=== PATIENT | female | born 2000 | race Caucasian/White ===

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

== ENCOUNTER 2023-08-07 13:18 | Emergency (ER) | payer OTHER, SELFPAY ==
[2023-08-07 13:19] VITALS: BP 131/70; PULSE 112; RESP 18; TEMP 36.5; O2SAT 97; BMI 37.3
--- NOTE | 2023-08-07 14:14 | EX.ED.DYSGE1 ---
HPI History of Present Illness Chief Complaint: Nausea/Vomiting Detail of Chief Complaint: Nausea and vomiting Informant: patient Narrative Narrative: Patient presents to the emergency department with complaint nausea and vomiting that started today. She has vomited x2. Patient states she started not feeling well yesterday and just kind of felt uncomfortable. Patient was coughing throughout the night. She denies any sick contacts. Patient is 22 weeks . She is G1, P0. Patient denies urinary symptoms. Patient states that she was recently on Flagyl for yeast infection as well as fluconazole. PFSH PFSH Medical History Chest pain Difficulty balancing when standing Fatigue Severe headache Home Medications multivitamin 1 tab PO DAILY 04/29/21 [History Last Taken Unknown] ondansetron 4 mg disintegrating tablet 4 mg PO Q8H PRN PRN Nausea #10 tabs 08/07/23 [Rx Last Taken Unknown] sertraline 25 mg tablet (Zoloft) 25 mg PO DAILY #30 tabs 08/24/23 [Rx Last Taken Unknown] Allergy/AdvReac Type Severity Reaction Status Date / Time Latex, Natural Rubber Allergy Mild Hives Verified 08/24/23 13:19 Penicillins Allergy unknown Verified 08/24/23 13:19 Family History (Updated 08/24/23 @ 13:21 by Rebeka Arthur MA) Grandmother Breast cancer Colon cancer Thyroid disorder Unknown Infertility Social History household members: spouse housing: house number of children: 0 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 history of recent travel: No sexually active: Yes Smoking Status: Never smoker alcohol intake: never substance use type: does not use what type of physical activity do you participate in: walking seatbelt use: always do you feel safe at home: Yes additional social history: - [place] ROS ROS ED Review of Systems ROS Unobtainable: other Constitutional Constitutional ED: Reports lethargy; Denies chills, fever(s), sweats or weight loss Eyes Eyes: Denies blurry vision, change in vision or diplopia ENT ENT ED: Denies rhinorrhea or sore throat Cardiovascular Cardiovascular: Denies chest pain, orthopnea or racing heartbeat Respiratory/Chest Respiratory/Chest: Reports cough; Denies dyspnea, dyspnea on exertion, orthopnea or sputum Gastrointestinal Gastrointestinal: Reports diarrhea, nausea and vomiting; Denies abdominal pain Genitourinary Genitourinary ED: Denies dysuria, hematuria or urinary frequency Musculoskeletal Musculoskeletal: Denies arthralgias, back pain, myalgias or neck pain Integumentary Denies abscess, Abrasions or rash Neurologic Neurologic: Denies headache(s) or weakness Psychiatric Psychiatric: Denies anxiety, depression or suicidal thoughts Endocrine Endocrinology: Denies polydipsia, polyphagia or polyuria Hematologic/Lymphatic Hematologic/Lymphatic: Denies easy bleeding, easy bruising or lymphadenopathy Allergic/Immunologic Allergic/Immunologic ED: Denies mouth swelling, tongue swelling or urticaria EXAM Physical Exam Const Vital Signs: 08/07/23 13:19 Temperature 97.7 F L Temperature Source Temporal Pulse Rate 112 H Respiratory Rate 18 Blood Pressure 131/70 H Blood Pressure Mean 90 Pulse Ox 97 Oxygen Delivery Method Room Air Positive well nourished and well developed General Appearance ED: well developed and NAD HEENT Reports TM's clear and moist mucous membranes normocephalic and atraumatic; Negative for trauma or tenderness Tympanic Membrane ED: Yes TM's clear Eyes PERRL and EOMs intact bilaterally General Eye ED: Negative for pale conjunctiva or scleral icterus Neck no lymphadenopathy, supple and no JVD General: Negative for tenderness Chest Wall inspection of chest normal and palpation of chest normal Chest: Negative for tenderness Resp normal respiratory effort and clear to auscultation bilaterally Effort and Inspection: Negative for respiratory distress or pain with movement Auscultation: Negative for rhonchi, wheezes or diminished lung sounds Cardio regular rate, regular rhythm, S1 normal heart sound, S2 normal heart sound and no murmurs Peripheral Pulses: pulses 2+ throughout GI normal to inspection, nondistended, normoactive bowel sounds, soft to palpation, non-tender, non-distended and no masses Back/Spine no CVA tenderness and no thoracic nor lumbar tenderness Extremity normal to inspection General Extremety ED: Negative for edema General Extremity: Negative for edema Neuro oriented x3, CN's II-XII intact bilaterally, no sensory deficits noted and gait normal Sensorium / Orientation: awake, alert, oriented to person, oriented to place and oriented to time Motor Exam: strength 5/5 throughout and strength abnormal Psych mental status grossly normal Skin no rashes or lesions noted and no wounds MDM MDM MDM Narrative Medical decision making narrative: Patient presents with vomiting and some loose stool x2 days. She has had decreased appetite. She had a slight cough. In the differential would be gastroenteritis versus a viral URI. She has no abdominal pain. I did obtain a COVID and flu rapid test which were both negative. CBC with differential did show slightly elevated white blood cell count of 12.3 with hemoglobin of 12 and platelet count of 276. She had a neutrophil predominance. Urinalysis was unremarkable. Electrolytes unremarkable. Patient received a liter of the same fluid bolus. heart tones will be obtained. Clinically patient looks well. This point suspect likely a viral gastroenteritis/viral syndrome. I will write her a prescription for Zofran. She is advised to follow-up with her [employer]LECT[employer]OWER SUPERINTENDENT within next 2 to 5 days. She is to return if persistent vomiting, dehydration, abdominal pain, or condition should worsen anyway. Lab Data Attestation: I reviewed the patient's lab results. Labs: Laboratory Results - last 24 hr 08/07/23 14:21 WBC 12.3 H RBC 3.99 L Hgb 12.1 Hct 37.1 MCV 93.0 MCH 30.3 MCHC 32.6 RDW Std Deviation 46.5 H RDW Coeff of Byron 13.7 Plt Count 276 MPV 10.2 Immature Gran % (Auto) 1.000 H Neut % (Auto) 76.8 H Lymph % (Auto) 12.4 L [place] % (Auto) 8.8 Eos % (Auto) 0.7 Baso % (Auto) 0.3 Absolute Neuts (auto) 9.5 H Absolute Lymphs (auto) 1.53 Nucleated RBC % 0 Sodium 138 Potassium 3.5 Chloride 105 Carbon Dioxide 25.0 Anion Gap 8 BUN 10 Creatinine 0.64 Estim Creat Clear Calc 121.08 Est GFR (MDRD) Af Amer 150 Est GFR (MDRD) Non-Af 124 BUN/Creatinine Ratio 15.6 Glucose 114 H Calcium 9.5 Urine Color Yellow Urine Clarity Clear Urine pH 7.0 Ur Specific [place] 1.015 Urine Protein Negative Urine Glucose (UA) 50 H Urine Ketones Negative Urine Occult Blood Negative Urine Nitrite Negative Urine Bilirubin Negative Urine Urobilinogen Normal Ur Leukocyte Esterase Negative Urine RBC 0 SEEN Urine WBC 0-5 SEEN Ur Squamous Epith Cells 5-10 SEEN Amorphous Sediment 2+ Urine Bacteria 2+ Urine Mucus 0 SEEN Discharge Plan Triage Chief Complaint: Nausea/Vomiting ED Provider: Epifanio Augustine Dx/Rx/DC Orders Clinical Impression: Acute viral syndrome Instructions: ED Gastroenteritis, Viral (Adult) Prescriptions: New ondansetron [ondansetron] 4 mg tablet,disintegrating 4 mg PO Q8H PRN PRN (Reason: Nausea) Qty: 10 0RF No Action multivitamin Tablet 1 tab PO DAILY sertraline [Zoloft] 25 mg tablet 25 mg PO DAILY Qty: 30 4RF Primary Care Provider: Boogie Ham Referrals: Care Physician,No Primary [Non-Staff] - Activity Restrictions/Additional Instructions: Follow-up with your E[employer] POWER SUPERINTENDENT within next 3 to 5 days. Disposition Disposition: Home, Self Care Discharge Date/Time: 08/07/23 15:54
[2023-08-07] MEDS: 0.9% Normal Saline (1000mL) 1,000 ML 1000 ML IV (14:29)
[2023-08-07 14:45] LABS: Mucous, Urine 0 SEEN /hpf (<or=2+); Red Blood Cells-Urine 0 SEEN /hpf (0-5)
[2023-08-07 14:53] LABS: Color, Urine Yellow (Yellow); Glucose, Dipstick 50 mg/dl (Normal); Ketone-Dipstick Negative (Negative); Leukocyte Esterase-Dipstick Negative /ul (Negative); Nitrite-Dipstick Negative (Negative); Occult Blood-Urine Negative /ul (Negative); Protein-Dipstick Negative (Negative); Specific Gravity, Urine 1.015 (1.002-1.030); Urine Bilirubin Dipstick Negative (Negative); Urine Clarity Clear (Clear); Urine Urobilinogen Normal (Normal)
[2023-08-07 14:58] LABS: Absolute Lymphocyte Count 1.53 X10^3/uL (0.83-4.51); Absolute Neutrophil Count 9.5 X10^3/uL (2.0-7.7); Basophil# 0.04 X10^3/uL; Basophil% 0.3 % (0-1); Eosinophil# 0.09 X10^3/uL; Eosinophils% 0.7 % (0-5); Hematocrit 37.1 % (37-47); Hemoglobin 12.1 g/dL (12.0-15.0); Lymphocyte # 1.53 X10^3/ul (0.83-4.51); Lymphocyte % 12.4 % (19-41); Mean Corp Hgb Conc 32.6 g/dL (32-36); Mean Corpuscular Hgb 30.3 pg (27.0-32.0); Mean Platelet Vol. 10.2 fl (6.2-12.0); Monocyte# 1.09 X10^3/uL; Monocyte% 8.8 % (0-10); NRBC Flagged by Analyzer 0 % (0-5); Neutrophil # 9.46 X10^3/uL (2.7-7.7); Neutrophil % 76.8 % (47-70); Platelet Count 276 K/mm3 (150-450); RBC Distribution Width CV 13.7 % (11.6-14.6); RBC Distribution Width SD 46.5 fl (35.1-43.9); Red Blood Count 3.99 M/mm3 (4.2-5.4); White Blood Count 12.3 K/mm3 (4.4-11.0)
[2023-08-07 15:02] LABS: Anion Gap 8 (5-15); BUN 10 mg/dL (7-18); BUN/Creat Ratio 15.6 RATIO (10-20); Calcium,Total 9.5 mg/dL (8.5-10.1); Chloride 105 mmol/L (98-107); Creatinine, Serum 0.64 mg/dL (0.55-1.02); EST Glomerular Filtration Rate 124 mL/min (>60); Est Glom Filt Rate - Afr Amer 150 mL/min (>60); Estimated Creatinine Clearance 121.08 ml/min; Glucose 114 mg/dL (74-106); Potassium 3.5 mmol/L (3.5-5.1); Sodium Level 138 mmol/L (136-145)
[2023-08-07 15:13] LABS: Bacteria 2+ /hpf (None Seen); White Blood Cells 0-5 SEEN /hpf (0-5)
[2023-08-07 15:14] LABS: Amorphous Sediment 2+; Squamous Epithelial Cells - UA 5-10 SEEN /hpf (5-10)
== END 2023-08-07 15:54 | disposition home or self-care (01) ==
PROVIDERS: Emergency Provider Emergency Medicine; PCP Family Medicine; Visit Provider Emergency Medicine
DX: O98.512 Other viral diseases complicating pregnancy, second trimester (principal); B34.9 Viral infection, unspecified; Z3A.22 22 weeks gestation of pregnancy; O21.9 Vomiting of pregnancy, unspecified
CPT/HCPCS: 80048; 81001; 85025; 87428; 96360; 99282; J7030

== ENCOUNTER → 2023-09-18 | Outpatient (CLI) | payer OTHER, SELFPAY ==
[2023-09-18 09:23] LABS: Absolute Lymphocyte Count 0.95 X10^3/uL (0.83-4.51); Absolute Neutrophil Count 7.7 X10^3/uL (2.0-7.7); Basophil# 0.03 X10^3/uL; Basophil% 0.3 % (0-1); Eosinophil# 0.09 X10^3/uL; Eosinophils% 0.9 % (0-5); Hematocrit 33.5 % (37-47); Hemoglobin 10.9 g/dL (12.0-15.0); Lymphocyte # 0.95 X10^3/ul (0.83-4.51); Lymphocyte % 9.9 % (19-41); Mean Corp Hgb Conc 32.5 g/dL (32-36); Mean Corpuscular Volume 92.3 fL (81-99); Mean Platelet Vol. 10.4 fl (6.2-12.0); Monocyte# 0.73 X10^3/uL; Monocyte% 7.6 % (0-10); NRBC Flagged by Analyzer 0 % (0-5); Neutrophil # 7.73 X10^3/uL (2.7-7.7); Neutrophil % 80.2 % (47-70); Platelet Count 214 K/mm3 (150-450); RBC Distribution Width CV 14.5 % (11.6-14.6); RBC Distribution Width SD 48.4 fl (35.1-43.9); Red Blood Count 3.63 M/mm3 (4.2-5.4); White Blood Count 9.6 K/mm3 (4.4-11.0)
[2023-09-18 09:56] LABS: Glucose Challenge Gest 1H 50g 187 mg/dL (70-140)
[2023-09-18 10:29] LABS: HIV - WCH Non-Reactive (Nonreactive); Syphilis Antibodies Non-reactive
== END | disposition home or self-care (01) ==
PROVIDERS: PCP Family Medicine; Referring Provider Advanced Practice Midwife; Visit Provider Advanced Practice Midwife
DX: O99.340 Other mental disorders complicating pregnancy, unspecified trimester (principal); F32.A Depression, unspecified; F41.9 Anxiety disorder, unspecified; F84.0 Autistic disorder; Z3A.00 Weeks of gestation of pregnancy not specified
CPT/HCPCS: 36415; 82950; 85025; 86703; 86780; 86850; 86900; 86901

== ENCOUNTER → 2023-10-02 | Outpatient (CLI) | payer OTHER, SELFPAY ==
[2023-10-04 21:07] LABS: Chlamydia By Nucleic Acid AMP Negative (Negative); Gonococcus By Nucleic Acid AMP Negative (Negative)
== END | disposition home or self-care (01) ==
PROVIDERS: Visit Provider Nurse Practitioner Women's Health
DX: Z34.90 Encounter for supervision of normal pregnancy, unspecified, unspecified trimester (principal); Z3A.00 Weeks of gestation of pregnancy not specified
CPT/HCPCS: 87086; 87088; 87491; 87591

== ENCOUNTER → 2023-10-13 | Outpatient (CLI) | payer OTHER, SELFPAY ==
[2023-10-13 12:11] LABS: Absolute Lymphocyte Count 1.23 X10^3/uL (0.83-4.51); Absolute Neutrophil Count 7.4 X10^3/uL (2.0-7.7); Basophil# 0.04 X10^3/uL; Basophil% 0.4 % (0-1); Hematocrit 36.2 % (37-47); Hemoglobin 11.6 g/dL (12.0-15.0); Lymphocyte # 1.23 X10^3/ul (0.83-4.51); Lymphocyte % 12.4 % (19-41); Mean Corpuscular Hgb 29.7 pg (27.0-32.0); Mean Corpuscular Volume 92.6 fL (81-99); Mean Platelet Vol. 9.5 fl (6.2-12.0); Monocyte# 0.99 X10^3/uL; NRBC Flagged by Analyzer 0 % (0-5); Neutrophil # 7.42 X10^3/uL (2.7-7.7); Neutrophil % 74.6 % (47-70); Platelet Count 242 K/mm3 (150-450); RBC Distribution Width CV 15.2 % (11.6-14.6); Red Blood Count 3.91 M/mm3 (4.2-5.4); White Blood Count 9.9 K/mm3 (4.4-11.0)
== END | disposition home or self-care (01) ==
LOC: PAVLAB 11:49
PROVIDERS: PCP Family Medicine; Referring Provider Advanced Practice Midwife; Visit Provider Advanced Practice Midwife
DX: O99.019 Anemia complicating pregnancy, unspecified trimester (principal); Z3A.00 Weeks of gestation of pregnancy not specified
CPT/HCPCS: 36415; 85025

== ENCOUNTER → 2023-10-18 | Outpatient (CLI) | payer OTHER, SELFPAY ==
--- NOTE | 2023-10-18 11:17 | US_ITS ---
EXAM: US , LIMITED CLINICAL INDICATION: 32 week growth US TECHNIQUE: Real-time limited ultrasound of the maternal uterus with image documentation. COMPARISON: No relevant prior studies available. FINDINGS: FETUS: Estimated age: 35 weeks, 0 days. EFW: Estimated weight: 2693 g. BPD: 8.7 cm. HC: 31.4 cm. AC: 32.3 cm. FL: 6.6 cm. POSITION: Cephalic presentation. HEART RATE: heart rate is 144 bpm. PLACENTA: Anterior placenta. AMNIOTIC FLUID: Amniotic fluid volume is 15.1 cm. CERVIX: The cervix is not visualized. ADNEXA: Maternal adnexal structures are not visualized. US/OB Limited With Biometrics IMPRESSION: Viable IUP of approximately 35 weeks, 0 days. Detailed anatomic assessment is limited due to technique and gestational age. Electronically Signed: Cheikh Khan DO at 20:36 EST ,
== END | disposition home or self-care (01) ==
PROVIDERS: PCP Family Medicine; Referring Provider Advanced Practice Midwife; Visit Provider Advanced Practice Midwife
DX: O24.419 Gestational diabetes mellitus in pregnancy, unspecified control (principal); Z3A.32 32 weeks gestation of pregnancy
CPT/HCPCS: 76816

== ENCOUNTER 2023-10-26 11:00 | Outpatient (CLI) | payer OTHER, SELFPAY ==
[2023-10-26 11:12] VITALS: BMI 41.0
[2023-10-26 11:20] VITALS: TEMP 37.3
[2023-10-26 11:47] VITALS: BP 127/70; PULSE 126; PULSE 130; O2SAT 99
[2023-10-26 11:52] VITALS: PULSE 125; O2SAT 99
--- NOTE | 2023-10-26 11:56 | US_ITS ---
STUDY: OBSTETRICAL ULTRASOUND - BIOPHYSICAL PROFILE REASON FOR EXAM: Female, 23 years old variables in office LMP: March 04, 2023 PRIOR ULTRASOUND: Comparison is made with prior examination dated October 18, 2023. TECHNIQUE: Transabdominal and Transvaginal TECHNICAL QUALITY: Adequate. FINDINGS: There is a single intrauterine fetus. The fetus is in a cephalic presentation. There is demonstrated cardiac activity with a heart rate of 145 bpm. There is a normal amniotic fluid volume. The largest amniotic fluid pocket measures 6 cm. The amniotic fluid index (EMEKA) is 16.5 cm. The placenta is anterior in location and is not low lying. There are Grade 2 placental changes. Age by LMP: 33 weeks, 5 days. SANDEEP by LMP: December 09, 2023. BIOPHYSICAL PROFILE: Breathing Movements (FBM): 2 Gross Body Movements (GBM): 2 Tone (FT): 2 Amniotic Fluid Volume (AFV): 2 TOTAL SCORE: US/Biophysical Prof W/O Non Stres IMPRESSION: Normal biophysical profile of 07/04. Electronically Signed: Yo Solano MD at 13:40 EST ,
[2023-10-26 12:03] LABS: Hematocrit 36.4 % (37-47); Hemoglobin 11.9 g/dL (12.0-15.0); Mean Corp Hgb Conc 32.7 g/dL (32-36); Mean Corpuscular Hgb 30.4 pg (27.0-32.0); Mean Corpuscular Volume 92.9 fL (81-99); Mean Platelet Vol. 10.5 fl (6.2-12.0); Platelet Count 193 K/mm3 (150-450); RBC Distribution Width CV 15.8 % (11.6-14.6); RBC Distribution Width SD 53.4 fl (35.1-43.9); Red Blood Count 3.92 M/mm3 (4.2-5.4); White Blood Count 8.2 K/mm3 (4.4-11.0)
[2023-10-26 12:09] LABS: AST(SGOT) 20 U/L (15-37); Alanine Aminotransfer ALT/SGPT 37 U/L (13-56); EST Glomerular Filtration Rate 165 mL/min (>60); Est Glom Filt Rate - Afr Amer 199 mL/min (>60); Uric Acid 2.8 mg/dL (2.6-6.0)
--- NOTE | 2023-10-26 13:47 | OB.TRI.PN_ITS ---
Progress Notes Date of Service: 10/26/23 Progress Note: Patient presents for triage evaluation secondary to variable on NST in office FHT: 140 Moderate variability reactive no decelerations category I tracing [place]: none Contractions Assessment and plan: BPP 8/8, Reactive NST, labs normal, reassuring maternal and status patient discharged to home to follow-up in office. See problem list details for additional plan information. Laboratory Studies: Laboratory Tests 10/26/23 Range/Units 11:40 WBC 8.2 (4.4-11.0) K/mm3 RBC 3.92 L (4.2-5.4) M/mm3 Hgb 11.9 L (12.0-15.0) g/dL Hct 36.4 L (37-47) % MCV 92.9 (81-99) fL MCH 30.4 (27.0-32.0) pg MCHC 32.7 (32-36) g/dL RDW Std Deviation 53.4 H (35.1-43.9) fl RDW Coeff of Byron 15.8 H (11.6-14.6) % Plt Count 193 (150-450) K/mm3 MPV 10.5 (6.2-12.0) fl Creatinine 0.50 L (0.55-1.02) mg/dL Est GFR (MDRD) Af Amer 199 (>60) mL/min Est GFR (MDRD) Non-Af 165 (>60) mL/min Uric Acid 2.8 (2.6-6.0) mg/dL AST 20 (15-37) U/L ALT 37 (13-56) U/L Charges/Coding Multi Select Codes Urinary/Genital Urinary/Genital CPT Codes: 60399-65 non-stress test Interp Assessment & Plan (1) : QUALIFIERS: Weeks of gestation: 33 weeks Qualified Code(s): Z3A.33 - 33 weeks gestation of COMMENT: NIPT with prior practice. records requested (2) Supervision of high risk , antepartum: COMMENT: [id number] SANDEEP 12/09/23 Spouse Dominguez NEEDS URINE CULTURE:10/02/23: (3) Rh negative status during : QUALIFIERS: Trimester: third trimester Qualified Code(s): O26.893 - Other specified related conditions, third trimester; Z67.91 - Unspecified blood type, Rh negative COMMENT: given 09/18/23 (4) Gestational diabetes mellitus (GDM) affecting , antepartum: COMMENT: metformin. NSTs and growth US at 32 and 36 weeks. testing supplies ordered-4x daily; not able to comprehend checking: ref to Dr Medina and dietitian. (5) Uterine size date discrepancy : COMMENT: S>D Growth at 32 week-99%. Records reviewed and early US done by previous practice. also GDM. growth at 36 weeks. consider possible P C/S if appropriate.
[2023-10-26 13:53] VITALS: BP 108/54; PULSE 118
[2023-10-26 14:03] LABS: Protein, Urine (Random) 9.5 mg/dL (<11.9); Protein:Creat Ratio 590 mg/g CRE (0-200)
--- NOTE | 2023-10-26 14:43 | NURSING ---
1442: Called [facility] and talked to WADE Nascimento notified of PC ratio [phone]. Pt was discharged. Pily stated she will notify Ethel Thompson and follow through with notifying pt.
== END 2023-10-26 13:56 | disposition home or self-care (01) ==
LOC: WPOUT 11:07 → WP 11:07
PROVIDERS: Advanced Practice Midwife; PCP Family Medicine; Referring Provider Obstetrics & Gynecology; Visit Provider Obstetrics & Gynecology
DX: O26.893 Other specified pregnancy related conditions, third trimester (principal); Z67.91 Unspecified blood type, Rh negative; O24.419 Gestational diabetes mellitus in pregnancy, unspecified control; O26.843 Uterine size-date discrepancy, third trimester; Z3A.33 33 weeks gestation of pregnancy
CPT/HCPCS: 36415; 59025; 59050; 76819; 82565; 82570; 84156; 84450; 84460; 84550; 85027; 99221; G0378

== ENCOUNTER → 2023-11-02 | Outpatient (CLI) | payer OTHER, SELFPAY ==
[2023-11-02 10:10] LABS: Absolute Lymphocyte Count 1.16 X10^3/uL (0.83-4.51); Absolute Neutrophil Count 6.3 X10^3/uL (2.0-7.7); Basophil# 0.02 X10^3/uL; Basophil% 0.2 % (0-1); Eosinophils% 1.2 % (0-5); Hematocrit 37.6 % (37-47); Hemoglobin 12.5 g/dL (12.0-15.0); Lymphocyte # 1.16 X10^3/ul (0.83-4.51); Mean Corp Hgb Conc 33.2 g/dL (32-36); Mean Corpuscular Hgb 30.7 pg (27.0-32.0); Mean Corpuscular Volume 92.4 fL (81-99); Mean Platelet Vol. 10.4 fl (6.2-12.0); Monocyte# 0.65 X10^3/uL; Monocyte% 7.9 % (0-10); NRBC Flagged by Analyzer 0 % (0-5); Neutrophil # 6.29 X10^3/uL (2.7-7.7); Neutrophil % 76.1 % (47-70); Platelet Count 173 K/mm3 (150-450); RBC Distribution Width CV 15.9 % (11.6-14.6); RBC Distribution Width SD 53.7 fl (35.1-43.9); Red Blood Count 4.07 M/mm3 (4.2-5.4); White Blood Count 8.3 K/mm3 (4.4-11.0)
[2023-11-02 10:24] LABS: ALB/GLOB Ratio 0.6 RATIO (0.9-2.4); AST(SGOT) 17 U/L (15-37); Alanine Aminotransfer ALT/SGPT 31 U/L (13-56); Albumin, Serum 2.7 g/dL (3.2-5.0); Alkaline Phosphatase 148 U/L (45-117); Anion Gap 5 (5-15); BUN 6 mg/dL (7-18); BUN/Creat Ratio 8.7 RATIO (10-20); Calcium,Total 9.2 mg/dL (8.5-10.1); Chloride 107 mmol/L (98-107); Creatinine, Serum 0.69 mg/dL (0.55-1.02); EST Glomerular Filtration Rate 115 mL/min (>60); Est Glom Filt Rate - Afr Amer 139 mL/min (>60); Globulin 4.4 g/dL (2.2-4.2); Glucose 117 mg/dL (74-106); Potassium 3.3 mmol/L (3.5-5.1); Protein, Total 7.1 g/dL (6.4-8.2); Sodium Level 138 mmol/L (136-145)
== END | disposition home or self-care (01) ==
PROVIDERS: PCP Family Medicine; Referring Provider Advanced Practice Midwife; Visit Provider Advanced Practice Midwife
DX: O12.10 Gestational proteinuria, unspecified trimester (principal); Z3A.00 Weeks of gestation of pregnancy not specified
CPT/HCPCS: 36415; 80053; 85025

== ENCOUNTER → 2023-11-09 | Outpatient (CLI) | payer OTHER, SELFPAY ==
[2023-11-09 09:46] LABS: Absolute Lymphocyte Count 1.36 X10^3/uL (0.83-4.51); Absolute Neutrophil Count 6.4 X10^3/uL (2.0-7.7); Basophil# 0.02 X10^3/uL; Basophil% 0.2 % (0-1); Eosinophils% 1.1 % (0-5); Hematocrit 38.4 % (37-47); Hemoglobin 12.9 g/dL (12.0-15.0); Lymphocyte # 1.36 X10^3/ul (0.83-4.51); Lymphocyte % 15.4 % (19-41); Mean Corp Hgb Conc 33.6 g/dL (32-36); Mean Corpuscular Hgb 31.3 pg (27.0-32.0); Mean Corpuscular Volume 93.2 fL (81-99); Mean Platelet Vol. 10.3 fl (6.2-12.0); Monocyte# 0.95 X10^3/uL; Monocyte% 10.8 % (0-10); NRBC Flagged by Analyzer 0 % (0-5); Neutrophil # 6.35 X10^3/uL (2.7-7.7); Platelet Count 194 K/mm3 (150-450); RBC Distribution Width CV 15.7 % (11.6-14.6); RBC Distribution Width SD 53.3 fl (35.1-43.9); Red Blood Count 4.12 M/mm3 (4.2-5.4); White Blood Count 8.8 K/mm3 (4.4-11.0)
[2023-11-09 10:19] LABS: Protein:Creat Ratio 307 mg/g CRE (0-200)
[2023-11-09 10:26] LABS: ALB/GLOB Ratio 0.6 RATIO (0.9-2.4); AST(SGOT) 23 U/L (15-37); Alanine Aminotransfer ALT/SGPT 32 U/L (13-56); Albumin, Serum 2.7 g/dL (3.2-5.0); Alkaline Phosphatase 148 U/L (45-117); Anion Gap 6 (5-15); BUN 8 mg/dL (7-18); Calcium,Total 9.6 mg/dL (8.5-10.1); Chloride 109 mmol/L (98-107); Creatinine, Serum 0.53 mg/dL (0.55-1.02); EST Glomerular Filtration Rate 154 mL/min (>60); Est Glom Filt Rate - Afr Amer 186 mL/min (>60); Globulin 4.2 g/dL (2.2-4.2); Glucose 82 mg/dL (74-106); Potassium 3.7 mmol/L (3.5-5.1); Protein, Total 6.9 g/dL (6.4-8.2); Sodium Level 141 mmol/L (136-145)
== END | disposition home or self-care (01) ==
PROVIDERS: PCP Family Medicine; Referring Provider Nurse Practitioner Women's Health; Visit Provider Nurse Practitioner Women's Health
DX: O12.10 Gestational proteinuria, unspecified trimester (principal); Z3A.00 Weeks of gestation of pregnancy not specified
CPT/HCPCS: 36415; 80053; 82570; 84156; 85025

== ENCOUNTER 2023-11-11 18:04 | Outpatient (CLI) | payer OTHER, SELFPAY ==
[2023-11-11 18:24] VITALS: BP 127/72; PULSE 110; TEMP 37.2; O2SAT 99
[2023-11-11 18:31] VITALS: BMI 41.7
[2023-11-11 18:57] LABS: Mucous, Urine 0 SEEN /hpf (<or=2+); Red Blood Cells-Urine 0 SEEN /hpf (0-5)
[2023-11-11 19:00] LABS: Color, Urine Yellow (Yellow); Glucose, Dipstick Normal (Normal); Ketone-Dipstick Negative (Negative); Leukocyte Esterase-Dipstick 500 /ul (Negative); Nitrite-Dipstick Negative (Negative); Occult Blood-Urine 10 /ul (Negative); Protein-Dipstick 15 mg/dl (Negative); Urine Bilirubin Dipstick Negative (Negative); Urine Clarity Sl. Cloudy (Clear); Urine Urobilinogen Normal (Normal)
[2023-11-11 19:11] LABS: Hematocrit 36.3 % (37-47); Hemoglobin 12.3 g/dL (12.0-15.0); Mean Corp Hgb Conc 33.9 g/dL (32-36); Mean Corpuscular Hgb 31.1 pg (27.0-32.0); Mean Corpuscular Volume 91.9 fL (81-99); Mean Platelet Vol. 10.2 fl (6.2-12.0); Platelet Count 192 K/mm3 (150-450); RBC Distribution Width CV 15.5 % (11.6-14.6); RBC Distribution Width SD 51.8 fl (35.1-43.9); Red Blood Count 3.95 M/mm3 (4.2-5.4); White Blood Count 8.6 K/mm3 (4.4-11.0)
[2023-11-11 19:16] LABS: Protein, Urine (Random) 12.9 mg/dL (<11.9); Protein:Creat Ratio 396 mg/g CRE (0-200)
[2023-11-11 19:17] LABS: Bacteria 1+ /hpf (None Seen); Squamous Epithelial Cells - UA 5-10 SEEN /hpf (5-10); White Blood Cells 5-10 SEEN /hpf (0-5)
[2023-11-11 19:19] VITALS: BP 124/80; PULSE 118
[2023-11-11 19:20] VITALS: PULSE 111; TEMP 37.1; O2SAT 100
[2023-11-11 19:25] LABS: Fibrinogen 609 mg/dl (203-444)
[2023-11-11 19:32] LABS: ALB/GLOB Ratio 0.6 RATIO (0.9-2.4); AST(SGOT) 17 U/L (15-37); Alanine Aminotransfer ALT/SGPT 25 U/L (13-56); Albumin, Serum 2.7 g/dL (3.2-5.0); Alkaline Phosphatase 142 U/L (45-117); Anion Gap 6 (5-15); BUN 11 mg/dL (7-18); BUN/Creat Ratio 20.3 RATIO (10-20); Calcium,Total 9.2 mg/dL (8.5-10.1); Chloride 110 mmol/L (98-107); Creatinine, Serum 0.54 mg/dL (0.55-1.02); EST Glomerular Filtration Rate 150 mL/min (>60); Est Glom Filt Rate - Afr Amer 182 mL/min (>60); Estimated Creatinine Clearance 142.31 ml/min; Globulin 4.4 g/dL (2.2-4.2); Glucose 84 mg/dL (74-106); Potassium 3.7 mmol/L (3.5-5.1); Protein, Total 7.1 g/dL (6.4-8.2); Sodium Level 138 mmol/L (136-145)
[2023-11-11 19:40] LABS: LDH 178 U/L (84-246)
[2023-11-11 19:48] VITALS: PULSE 100; O2SAT 100
--- NOTE | 2023-11-11 20:01 | OB.TRI.HP_ITS ---
HPI - General HPI Narrative PIETER MCKEON, is a 23 F who presents with variety of complaints- headache back pain pelvic pressure, no fevers or vagianl discharge, some intermittent chest heaviness no shortness of breath no vb lof admits good fm no regular ctx. bs WNL and controlled. Maternal Data Information SANDEEP Calculator Estimated Delivery Date Method Current WG Current Estimate 12/09/23 LMP (Uncertain) 36w 0d PFSH PFSH Medical History Chest pain Difficulty balancing when standing Fatigue Severe headache Home Medications ondansetron 4 mg disintegrating tablet 4 mg PO Q8H PRN PRN Nausea #10 tabs 08/07/23 [Rx Last Taken Unknown] sertraline 25 mg tablet (Zoloft) 25 mg PO DAILY #30 tabs 08/24/23 [Rx Last Taken 11/11/23 18:00 25 mg] blood sugar diagnostic (Blood Glucose Test strips) #120 ea 09/18/23 [Rx Last Taken Unknown] blood-glucose meter #1 ea 09/18/23 [Rx Last Taken Unknown] lancets #200 ea 09/18/23 [Rx Last Taken Unknown] aspirin 81 mg tablet,delayed release 81 mg PO DAILY #90 tabs 10/02/23 [Rx Last Taken 11/11/23 08:00 81 mg] ferrous fumarate 325 mg (106 mg iron) tablet 325 mg PO DAILY take at evening meal #90 tabs 10/02/23 [Rx Last Taken 11/10/23 18:00 325 mg] metformin 1,000 mg tablet 1,000 mg PO DAILY #30 tabs 10/02/23 [Rx Last Taken 11/11/23 18:00 1,000 mg] vitamins with calcium no.72-iron 29 mg-folic acid 1 mg tablet 1 tab PO DAILY take in morning #90 tabs 10/02/23 [Rx Last Taken 11/11/23 08:00 1 TAB] Allergy/AdvReac Type Severity Reaction Status Date / Time Latex, Natural Rubber Allergy Mild Hives Verified 11/11/23 18:32 Penicillins Allergy unknown Verified 11/11/23 18:32 Family History Grandmother Breast cancer Colon cancer Thyroid disorder Unknown Infertility Social History household members: spouse housing: house number of children: 0 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 history of recent travel: No sexually active: Yes Smoking Status: Never smoker alcohol intake: never substance use type: does not use what type of physical activity do you participate in: walking seatbelt use: always do you feel safe at home: Yes additional social history: - [place] History 1 Elective abortions Hx Para 0 Spontaneous abortions Hx # Term Pregnancies Ectopic pregnancies Hx # Pregnancies Multiple births # of living children Visit Details Expected Delivery Route/Plan Labor Preferences- CB/BF classes: encouraged labor support person: [] labor intervention preferences: [] pain management options preferred: epidural cut cord/dad catch: [] : [] PP control planned: condoms discussed possible routes of delivery and associated risks: [] special requests: [] Plans Covid status: + 09/01/23 Flu vaccine: declines Tdap vaccine: 10/02/23 Rhogam: 09/18/2023 LARC form signed: completed Problem list reviewed and updated with the most current plan of care details and appropriate orders placed. Relevant counseling for the gestational age provided. Continue routine care and follow up unless otherwise noted in visit notes/problem list details OB Flowsheet Initial Weight: Not Recorded Date -?-?-?-?-?-?-?-?-?-?-?-?- EGA Weight BP Urine Prot -?-?-?-?-?-?-?-?-?-?-?-?- Glucose FHR FuHt Pres Dilation -?-?-?-?-?-?-?-?-?-?-?-?- Effaced St Visit Note 08/24/23 -?-?-?-?-?-?-?-?-?-?-?-?- 24w 5d 226 lb 2 oz 111/61 111/61 -?-?-?-?-?-?-?-?-?-?-?-?- 160 27 -?-?-?-?-?-?-?-?-?-?-?-?- KW- transfer of care. Hx of anxiety and depression-off of medication per last office and now having increased sx. discussed medication use. Wants to try zoloft. 28 week labs ordered and explained. KW- transfer of care-upset w ith lack of communication of previous practice (mother with her today). Did not have early GCT. Records requested. Hx of anxiety and depression-off of medication per last office and now having increased sx. discussed medication use. Wants to try zoloft. 28 week labs ordered and explained. New OB folder given. 09/18/23 -?-?-?-?-?-?-?-?-?-?-?-?- 28w 2d 236 lb 2 oz 121/79 -?-?-?-?-?-?-?-?-?-?-?-?- 145 29 -?-?-?-?-?-?-?-?-?-?-?-?- LC- no ctx/lof/v b. good fm. mild anemia will start additional iron. LC- no ctx/lof/vb. good fm. mild anemia will start additional iron. rhogam today. larc completed. LC- no ctx/lof/vb. good fm. mild anemia will start additional iron. rhogam today. larc completed. glucose pending 10/02/23 -?-?-?-?-?-?-?-?-?-?-?-?- 30w 2d 237 lb 2 oz 124/72 Nega tive -?-?-?-?-?-?-?-?-?-?-?-?- Negative 157 31 -?-?-?-?-?-?-?-?-?--?-?-?- MH-No VB,LOF. Go od FM. Not checking glucose. Long dicussion on GDM, anemia, PNV, Fe and ASA sent. tdap given. 10/13/23 -?-?-?-?-?-?-?-?-?-?-?-?- 31w 6d 236 lb 120/76 Negative -?-?-?-?-?-?-?-?-?-?-?-?- Negative 135 35 -?-?-?-?-?-?-?-?-?-?-?-?- KW- no vb/lof/cr amping. good fm. reviewed BS log and most under perimeters. On metformin per Dr. Medina. discussed growth US and NSTs starting next week. patient verbalized understanding. Repeat CBC today. 10/16/23 -?-?-?-?-?-?-?-?-?-?-?-?- 32w 2d 237 lb 122/70 Negative -?-?-?-?-?-?-?-?-?-?-?-?- Negative 140 -?-?-?-?-?-?-?-?-?-?-?-?- MH-NST only reac tive. Glucose review per Dr Medina. 10/18/23 -?-?-?-?-?-?-?-?-?-?-?-?- 32w 4d 235 lb 2 oz 133/77 Nega tive -?-?-?-?-?-?-?-?-?-?-?-?- Negative 145 -?-?-?-?-?-?-?-?-?-?-?-?- KW-reactive NST. Doing well. had elevated BS last night and sent to Dr medina. doing well today KW-reactive NST. Doing well. had elevated BS last night and sent to Dr medina. doing well and has growth US today 10/23/23 -?-?-?-?-?-?-?-?-?-?-?-?- 33w 2d 236 lb 6 oz 122/70 122/70 Negative -?-?-?-?-?-?-?-?-?-?-?-?- Negative 150 -?-?-?-?-?-?-?-?-?-?-?-?- JV- glucose leve ls are stable on metformin with exception of one 220 on thanksgiving (before dinner) nst reactive 10/26/23 -?-?-?-?-?-?-?-?-?-?-?-?- 33w 5d 238 lb 8 oz 124/68 -?-?-?-?-?-?-?-?-?-?-?-?- 145 35 -?-?-?-?-?-?-?-?-?-?-?-?- kw-no vb/lof/ctx . good fm. variables with NST. to [facility] for extended monitoring. reports good bps. headaches on and off over last week. pre e labs in [facility] 11/02/23 -?-?-?-?-?-?-?-?-?-?-?-?- 34w 5d 238 lb 4 oz 127/63 Nega tive -?-?-?-?-?-?-?-?-?-?-?-?- Negative 145 -?-?-?-?-?-?-?-?-?-?-?-?- KW-NST only. pre e labs today. reports good bps and BS. letter for work needed-does not qualify for FMLA 11/06/23 -?-?-?-?-?-?-?-?-?-?-?-?- 35w 2d 238 lb 6 oz 104/74 Trac e -?-?-?-?-?-?-?-?-?-?-?-?- Negative 150 -?-?-?-?-?-?-?--?-?-?-?-?- MH-NST only reac tive. Glucose nl and reporting to Dr Medina. Normal BPs. Not much fluid intake today and enc to increase water. Denies headache, vision changes. 11/09/23 -?-?-?-?-?-?-?-?-?-?-?-?- 35w 5d 240 lb 6 oz 132/84 Nega tive -?-?-?-?-?-?-?-?-?-?-?-?- Negative 150 37 -?-?-?-?-?-?-?-?-?-?-?-?- MH-Ractive NST. Glucose nl and reporting to Dr Medina. Pre E labs today. good FM. NO VB, LOF or CTX MH-Reactive NST. Glucose nl and reporting to Dr Medina. Pre E labs today. good FM. NO VB, LOF or CTX Physical Exam Const alert, oriented x3 and no apparent distress HEENT Head and Scalp: normocephalic and atraumatic Eyes EOMs intact bilaterally Neck full ROM and no lymphadenopathy Chest inspection of chest normal Resp normal respiratory effort Cardio Cardio Narrative: RRR HR 95-99 CTAB GI GI Narrative: gravid, abdomen nontender, AGA Neuro no focal motor deficits Motor Exam: clonus absent NST FHR Rate Baby A Baseline: 140 Variability:: Moderate Accelerations:: 15 x 15 Decelerations:: None NST Reactive:: Yes FHR Category:: Category I (initial marked variability then resolved to moderate) Uterine Activity:: no regular Assessment Assessment Detail: bedside ariela 17 cm and modified BPP reassuring Assessment & Plan (1) Proteinuria affecting : QUALIFIERS: Trimester: third trimester Qualified Code(s): O12.13 - Gestational proteinuria, third trimester COMMENT: repeat pre e labs weekly, bps at home-to get bp cuff from [facility]. urine culture sent and macrobid ordered for suspected UTI 11/11 (2) UTI in : COMMENT: culture sent, fosfomycin given in triage 11/11 PLAN: Plan uti suspected, bedside eval with ultrasound done and reassuring, dc home Charges/Coding Procedures Urinary/Genital [id number]: [id number] non-stress test Interp Multi Select Codes Visit Charges Office Visit/Consults: 15007 OV L3 Est
[2023-11-11] MEDS: FOSFOMYCIN TROMETHAMINE 3 GM PACKET PO (20:24)
[2023-11-11 20:26] LABS: Uric Acid 3.2 mg/dL (2.6-6.0)
== END 2023-11-11 20:40 | disposition home or self-care (01) ==
LOC: WPOUT 18:14 → WP 18:15
PROVIDERS: PCP Family Medicine; Referring Provider Obstetrics & Gynecology; Visit Provider Obstetrics & Gynecology
DX: O23.43 Unspecified infection of urinary tract in pregnancy, third trimester (principal); O99.891 Other specified diseases and conditions complicating pregnancy; R51.9 Headache, unspecified; R07.89 Other chest pain; O12.13 Gestational proteinuria, third trimester; Z3A.35 35 weeks gestation of pregnancy
CPT/HCPCS: 36415; 59025; 59050; 80053; 81001; 82570; 83615; 84156; 84550; 85027; 85384; 87086; 87088; 99221; G0378

== ENCOUNTER → 2023-11-15 | Outpatient (CLI) | payer OTHER, SELFPAY ==
--- NOTE | 2023-11-15 08:29 | US_ITS ---
STUDY: SECOND AND THIRD TRIMESTER OBSTETRICAL ULTRASOUND - LIMITED REASON FOR EXAM: Female, 23 years old growth -- 36 weeks LMP: March 04, 2023. PRIOR ULTRASOUND: Comparison is made with prior study dated October 26, 2023. TECHNIQUE: Transabdominal TECHNICAL QUALITY: Adequate. FINDINGS: There is a single intrauterine fetus. The fetus is in a cephalic presentation. There is demonstrated cardiac activity with a heart rate of 145 bpm. There is a normal amniotic fluid volume. The largest amniotic fluid pocket measures 3.9 cm. The amniotic fluid index (EMEKA) is 12.7 cm. The placenta is anterior in location and is not low lying. There are Grade 2 placental changes. The cervical length was not measured due to the head positioning. BIOMETRY: BPD: 9.4 cm: 38 weeks, 2 days HC: 34.1 cm: 39 weeks, 1 days AC: 35.1 cm: 39 weeks, 0 days FL: 7.6 cm: 38 weeks, 5 days Age by LMP: 36 weeks, 4 days. SANDEEP by LMP: December 09, 2023. age by prior US: 39 weeks, 0 days. SANDEEP by prior US: November 22, 2023. age by current US: 38 weeks, 4 days. SANDEEP by current US: November 25, 2023. Estimated weight: 3643 grams, +/- 546 grams, 97 percentile. US/OB Limited With Biometrics IMPRESSION: Single live uterine gestation with a mean gestational age of 39 weeks. The measurements obtained today following within the normal expected range. Electronically Signed: Yo Solano MD at 14:38 EST ,
== END | disposition home or self-care (01) ==
LOC: OPUS 08:28
PROVIDERS: PCP Family Medicine; Referring Provider Advanced Practice Midwife; Visit Provider Advanced Practice Midwife
DX: O24.419 Gestational diabetes mellitus in pregnancy, unspecified control (principal); Z3A.36 36 weeks gestation of pregnancy
CPT/HCPCS: 76816

== ENCOUNTER 2023-11-16 23:25 | Outpatient (CLI) | payer OTHER, SELFPAY ==
[2023-11-16 23:49] VITALS: BP 119/57; PULSE 118; TEMP 36.6; O2SAT 98
[2023-11-17 00:01] VITALS: BMI 40.9
[2023-11-17 03:20] VITALS: BP 105/55; PULSE 105
[2023-11-17] MEDS: Rho(D) Immune Globulin 300 MCG (1500 Unit) Syringe IV (05:29)
--- NOTE | 2023-11-17 06:23 | US_ITS ---
INDICATION: fall EXAMINATION: Ultrasound US Biophysical Profile W/O Nonst TECHNIQUE: Transabdominal pelvic ultrasound was performed. COMPARISON: Prior study dated: 10/26/2023. LMP: Unknown. Beta-hCG: Unknown. Provided EGA: None. FINDINGS: INTRAUTERINE GESTATION(s): Single. HEART MOTION is 141 bpm. AMNIOTIC FLUID INDEX (EMEKA): 16 cm with the largest pocket measures 7 cm. BIOPHYSICAL PROFILE (BPP): 07/04 -- Breathin/2. -- Movement: 2/2. -- Tone: 2/2. --EMEKA: 2/2. PRESENTATION: Cephalic PLACENTA: Anterior. There is no placenta previa or abruption. CERVIX: The cervix is not visualized. MATERNAL OVARIES: No adnexal masses. FREE FLUID: None. US/Biophysical Prof W/O Non Stres IMPRESSION: Normal biophysical profile with score of 8 out of 8. Electronically Signed: Abraham Singh MD at 14:24 EST ,
--- NOTE | 2023-11-17 07:04 | OB.TRI.HP_ITS ---
HPI - General General Date of Service: 11/17/23 HPI Narrative PIETER MCKEON, is a 23 F at 36.6 weeks who presents to unit for fall. fell at work after slipping on water. landed on her buttocks and a coworker helped her up. Denies bleeding or cramping. feeling movement. Maternal Data Information SANDEEP Calculator Estimated Delivery Date Method Current WG Current Estimate 12/09/23 LMP (Uncertain) 36w 6d Final SANDEEP: 12/09/23 Final SANDEEP Source: US >20 weeks Gestational age: 36.6 PFSH PFSH Medical History Chest pain Difficulty balancing when standing Fatigue Severe headache Home Medications ondansetron 4 mg disintegrating tablet 4 mg PO Q8H PRN PRN Nausea #10 tabs 08/07/23 [Rx Last Taken Unknown] sertraline 25 mg tablet (Zoloft) 25 mg PO DAILY #30 tabs 08/24/23 [Rx Last Taken 11/15/23 22:00 25 mg] blood sugar diagnostic (Blood Glucose Test strips) #120 ea 09/18/23 [Rx Last Taken Unknown] blood-glucose meter #1 ea 09/18/23 [Rx Last Taken Unknown] lancets #200 ea 09/18/23 [Rx Last Taken Unknown] aspirin 81 mg tablet,delayed release 81 mg PO DAILY #90 tabs 10/02/23 [Rx Last Taken 11/16/23 09:00 81 mg] ferrous fumarate 325 mg (106 mg iron) tablet 325 mg PO DAILY take at evening meal #90 tabs 10/02/23 [Rx Last Taken 11/15/23 22:00 325 mg] metformin 1,000 mg tablet 1,000 mg PO DAILY #30 tabs 10/02/23 [Rx Last Taken 11/16/23 18:00 1,000 mg] vitamins with calcium no.72-iron 29 mg-folic acid 1 mg tablet 1 tab PO DAILY take in morning #90 tabs 10/02/23 [Rx Last Taken 11/16/23 09:00 1 TAB] Allergy/AdvReac Type Severity Reaction Status Date / Time Latex, Natural Rubber Allergy Mild Hives Verified 11/16/23 23:51 Penicillins Allergy unknown Verified 11/16/23 23:51 Family History Grandmother Breast cancer Colon cancer Thyroid disorder Unknown Infertility Social History household members: spouse housing: house number of children: 0 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 history of recent travel: No sexually active: Yes Smoking Status: Never smoker alcohol intake: never substance use type: does not use what type of physical activity do you participate in: walking seatbelt use: always do you feel safe at home: Yes additional social history: - Сергей History 1 Elective abortions Hx Para 0 Spontaneous abortions Hx # Term Pregnancies Ectopic pregnancies Hx # Pregnancies Multiple births # of living children Visit Details Expected Delivery Route/Plan Labor Preferences- CB/BF classes: encouraged labor support person: Sam labor intervention preferences: [] pain management options preferred: epidural cut cord/dad catch: yes : yes PP control planned: condoms discussed possible routes of delivery and associated risks: [] special requests: [] Plans Covid status: + 09/01/23 Flu vaccine: declines Tdap vaccine: 10/02/23 Rhogam: 09/18/2023 LARC form signed: completed Problem list reviewed and updated with the most current plan of care details and appropriate orders placed. Relevant counseling for the gestational age provided. Continue routine care and follow up unless otherwise noted in visit notes/problem list details OB Flowsheet Initial Weight: Not Recorded Date -?-?-?-?-?-?-?-?-?-?-?-?- EGA Weight BP Urine Prot -?-?-?-?-?-?-?-?-?-?-?-?- Glucose FHR FuHt Pres Dilation -?-?-?-?-?-?-?-?-?-?-?-?- Effaced St Visit Note 08/24/23 -?-?-?-?-?-?-?-?-?-?-?-?- 24w 5d 226 lb 2 oz 111/61 111/61 -?-?-?-?-?-?-?-?-?-?-?-?- 160 27 -?-?-?-?-?-?-?-?-?-?-?-?- KW- transfer of care. Hx of anxiety and depression-off of medication per last office and now having increased sx. discussed medication use. Wants to try zoloft. 28 week labs ordered and explained. KW- transfer of care-upset w ith lack of communication of previous practice (mother with her today). Did not have early GCT. Records requested. Hx of anxiety and depression-off of medication per last office and now having increased sx. discussed medication use. Wants to try zoloft. 28 week labs ordered and explained. New OB folder given. 09/18/23 -?-?-?-?-?-?-?-?-?-?-?-?- 28w 2d 236 lb 2 oz 121/79 -?-?-?-?-?-?-?-?-?-?-?-?- 145 29 -?-?-?-?-?-?-?-?-?-?-?-?- LC- no ctx/lof/v b. good fm. mild anemia will start additional iron. LC- no ctx/lof/vb. good fm. mild anemia will start additional iron. rhogam today. larc completed. LC- no ctx/lof/vb. good fm. mild anemia will start additional iron. rhogam today. larc completed. glucose pending 10/02/23 -?-?-?-?-?-?-?-?-?-?-?-?- 30w 2d 237 lb 2 oz 124/72 Nega tive -?-?-?-?-?-?-?-?-?-?-?-?- Negative 157 31 -?-?-?-?-?-?-?-?-?-?-?-?- MH-No VB,LOF. Go od FM. Not checking glucose. Long dicussion on GDM, anemia, PNV, Fe and ASA sent. tdap given. 10/13/23 -?-?-?-?-?-?-?-?-?-?-?-?- 31w 6d 236 lb 120/76 Negative -?-?-?-?-?-?-?-?-?-?-?-?- Negative 135 35 -?-?-?-?-?-?-?-?-?-?-?-?- KW- no vb/lof/cr amping. good fm. reviewed BS log and most under perimeters. On metformin per Dr. Medina. discussed growth US and NSTs starting next week. patient verbalized understanding. Repeat CBC today. 10/16/23 -?-?-?-?-?-?-?-?-?-?-?-?- 32w 2d 237 lb 122/70 Negative -?-?-?-?-?-?-?-?-?-?-?-?- Negative 140 -?-?-?-?-?-?-?-?-?-?-?-?- MH-NST only reac tive. Glucose review per Dr Medina. 10/18/23 -?-?-?-?-?-?-?-?-?-?-?-?- 32w 4d 235 lb 2 oz 133/77 Nega tive -?-?-?-?-?-?-?-?-?-?-?-?- Negative 145 -?-?-?-?-?-?-?-?-?-?-?-?- KW-reactive NST. Doing well. had elevated BS last night and sent to Dr medina. doing well today KW-reactive NST. Doing well. had elevated BS last night and sent to Dr medina. doing well and has growth US today 10/23/23 -?-?-?-?-?-?-?-?-?-?-?-?- 33w 2d 236 lb 6 oz 122/70 122/70 Negative -?-?-?-?-?-?-?-?-?-?-?-?- Negative 150 -?-?-?-?-?-?-?-?-?-?-?-?- JV- glucose leve ls are stable on metformin with exception of one 220 on thanksgiving (before dinner) nst reactive 10/26/23 -?-?-?-?-?-?-?-?-?-?-?-?- 33w 5d 238 lb 8 oz 124/68 -?-?-?-?-?-?-?-?-?-?-?-?- 145 35 -?-?-?-?-?-?-?-?-?-?-?-?- kw-no vb/lof/ctx . good fm. variables with NST. to for extended monitoring. reports good bps. headaches on and off over last week. pre e labs in [facility] 10/30/23 -?-?-?-?-?-?-?-?-?-?-?-?- 34w 2d 237 lb 110/70 Trace -?-?-?-?-?-?-?-?-?-?-?-?- Negative -?-?-?-?-?-?-?-?-?-?-?-?- LC- nst only. no rmal glucose. monitor for bp arrived from today 11/02/23 -?-?-?-?-?-?-?--?-?-?-?-?- 34w 5d 238 lb 4 oz 127/63 Nega tive -?-?-?-?-?-?-?-?-?-?-?-?- Negative 145 -?-?-?-?-?-?-?-?-?-?-?-?- KW-NST only. pre e labs today. reports good bps and BS. letter for work needed-does not qualify for FMLA 11/06/23 -?-?-?-?-?-?-?-?-?-?-?-?- 35w 2d 238 lb 6 oz 104/74 Trac e -?-?-?-?-?-?-?-?-?-?-?-?- Negative 150 -?-?-?-?-?-?-?-?-?-?-?-?- MH-NST only reac tive. Glucose nl and reporting to Dr Mednia. Normal BPs. Not much fluid intake today and enc to increase water. Denies headache, vision changes. 11/09/23 -?-?-?-?-?-?-?-?-?-?-?-?- 35w 5d 240 lb 6 oz 132/84 Nega tive -?-?-?-?-?-?-?-?-?-?-?-?- Negative 150 37 -?-?-?-?-?-?-?-?-?-?-?-?- MH-Ractive NST. Glucose nl and reporting to Dr Medina. Pre E labs today. good FM. NO VB, LOF or CTX MH-Reactive NST. Glucose nl and reporting to Dr Medina. Pre E labs today. good FM. NO VB, LOF or CTX 11/15/23 -?-?-?-?-?-?-?-?-?-?-?-?- 36w 4d 238 lb 130/82 Negative -?-?-?-?-?-?-?-?-?-?-?-?- Negative 150 -?-?-?-?-?-?-?-?-?-?-?-?- MH-NST only reac tive. Still good BS control. Growth US today. 11/16/23 -?-?-?-?-?-?-?-?-?-?-?-?- 36w 5d 238 lb 8.642 oz 119/ 57 105/55 -?-?-?-?-?-?-?-?-?-?-?-?- 135 -?-?-?-?-?-?-?-?-?-?-?-?- evaluated in [facility] after fall. GBS done today BPP 07/04 and US shows no placental abruption. Rhogam today evaluated in [facility] after fall. GBS done today BPP 07/04 and US shows no placental abruption. Rhogam today. Discussed with JV PC/S for suspected macrosomia. scheduled for 12/04 ROS Constitutional Constitutional: Reports systems reviewed and no addt'l complaints, except as documented Cardiovascular Cardiovascular: Reports systems reviewed and no addt'l complaints, except as documented Respiratory/Chest Respiratory/Chest: Reports systems reviewed and no addt'l complaints, except as documented Gastrointestinal Gastrointestinal: Reports systems reviewed and no addt'l complaints, except as documented Genitourinary Genitourinary: Reports systems reviewed and no addt'l complaints, except as documented Musculoskeletal Musculoskeletal: Reports systems reviewed and no addt'l complaints, except as documented Integumentary Integumentary: Reports systems reviewed and no addt'l complaints, except as documented Neurologic Neurologic: Reports systems reviewed and no addt'l complaints, except as documented Psychiatric Psychiatric: Reports systems reviewed and no addt'l complaints, except as documented Endocrine Endocrinology: Reports systems reviewed and no addt'l complaints, except as documented Hematologic/Lymphatic Hematologic/Lymphatic: Reports systems reviewed and no addt'l complaints, except as documented Allergic/Immunologic Allergic/Immunologic: Reports systems reviewed and no addt'l complaints, except as documented Physical Exam Const alert, oriented x3 and no apparent distress Neck full ROM Resp normal respiratory effort Cardio regular rate GI normal to inspection, nondistended, normoactive bowel sounds, soft to palpation and non-tender Inspection: gravid external exam normal Skin no rashes or lesions noted Neuro moves all extremities Psych mental status grossly normal NST FHR Rate Baby A Baseline: 135 Variability:: Moderate Accelerations:: 15 x 15 Decelerations:: None NST Reactive:: Yes FHR Category:: Category I Uterine Activity:: occasional cramping Assessment & Plan (1) Fall: COMMENT: BPP 07/04 US to r/o abruption-nl PLAN: discussed plan of care with Dr Chase and agrees with above assessment and plan of care. follow up in office at next appointment (2) UTI in : QUALIFIERS: Trimester: third trimester Qualified Code(s): O23.43 - Unspecified infection of urinary tract in , third trimester COMMENT: culture sent, fosfomycin given in triage 11/11 (3) Proteinuria affecting : QUALIFIERS: Trimester: third trimester Qualified Code(s): O12.13 - Gestational proteinuria, third trimester COMMENT: repeat pre e labs weekly, bps at home-to get bp cuff from . urine culture sent and macrobid ordered for suspected UTI 11/11 (4) Uterine size date discrepancy : COMMENT: 8 lbs estimated at 36 weeks. consider primary section S>D Growth at 32 week-99%. Records reviewed and early US done by previous practice. also GDM. growth at 36 weeks. consider possible P C/S if appropriate. (5) Monilial vaginitis: COMMENT: Reviewed DISTANCE LEARNING COORDINATOR skin care. Wrote out use of monistat 7 at pharmacy. (6) Chlamydia infection affecting : QUALIFIERS: Trimester: first trimester Qualified Code(s): O98.811 - Other maternal infectious and parasitic diseases complicating , first trimester; A74.9 - Chlamydial infection, unspecified COMMENT: + 1st trim. SILVIA 10/02/23:negative. Check at 36 wk (7) COVID-19 affecting in third trimester: COMMENT: asa: sent to pharmacy (8) Gestational diabetes mellitus (GDM) affecting , antepartum: COMMENT: metformin. NSTs and growth US at 32 and 36 weeks. testing supplies ordered-4x daily; not able to comprehend checking: ref to Dr Medina and dietitian. (9) Rh negative status during : QUALIFIERS: Trimester: third trimester Qualified Code(s): O26.893 - Other specified related conditions, third trimester; Z67.91 - Unspecified blood type, Rh negative COMMENT: given 09/18/23 (10) Anemia affecting : QUALIFIERS: Trimester: third trimester Qualified Code(s): O99.013 - Anemia complicating , third trimester COMMENT: oral iron/reviewed need for use/sent to pharmacy PNV and also Fe. repeat cbc in 4 weeks. (32 weeks) (11) Depression affecting : COMMENT: started zoloft 25mg:stable (12) Anxiety during : COMMENT: stable (13) Autism spectrum: COMMENT: high functioning-needs additional time and explanation. 40 min appt: reviewed how to check glucose and wrote down instructions. Also taking PNV, Fe and ASA. (14) Supervision of high risk , antepartum: COMMENT: [id number] SANDEEP 12/09/23 Spouse Dominguez NEEDS URINE CULTURE:10/02/23:contaminant only (15) : QUALIFIERS: Weeks of gestation: 35 weeks Qualified Code(s): Z3A.35 - 35 weeks gestation of COMMENT: NIPT with prior practice. records requested Charges/Coding Multi Select Codes Visit Charges Office Visit/Consults: [id number] OV L3 Est Urinary/Genital Urinary/Genital CPT Codes: 37905-74 non-stress test Interp
[2023-11-17 09:14] LABS: Group B Strep DNA By PCR Negative (Negative)
[2023-11-17 09:15] LABS: Internal Control PASS; Probe Check PASS; Specimen Processing Control PASS
== END 2023-11-17 08:10 | disposition home or self-care (01) ==
LOC: WPOUT 23:40 → WP 23:41
PROVIDERS: PCP Family Medicine; Visit Provider Advanced Practice Midwife
DX: Z04.3 Encounter for examination and observation following other accident (principal); Z3A.36 36 weeks gestation of pregnancy; O23.43 Unspecified infection of urinary tract in pregnancy, third trimester; O12.13 Gestational proteinuria, third trimester; O24.415 Gestational diabetes mellitus in pregnancy, controlled by oral hypoglycemic drugs; O26.893 Other specified pregnancy related conditions, third trimester; Z67.91 Unspecified blood type, Rh negative; O99.013 Anemia complicating pregnancy, third trimester; O99.343 Other mental disorders complicating pregnancy, third trimester; F32.A Depression, unspecified; Z79.899 Other long term (current) drug therapy
CPT/HCPCS: 96365; 59050; 76819; 87081; 87086; 87088; 87653; 90384; 99221; G0378; J2790; J2791

== ENCOUNTER 2023-11-20 12:05 | Inpatient (IN) | payer OTHER, SELFPAY ==
[2023-11-20] VITALS (23 sets, daily range): BP systolic 99–144; BP diastolic 58–97; PULSE 90–127; TEMP 36.2–37.1; BMI 40.6
[2023-11-20 12:06] LABS: ROM Internal Control Test YES-OK TO RESULT pt. (Internal QC)
[2023-11-20 12:07] LABS: ROM Patient Test POSITIVE (Negative); Record Kit Lot#, ROM+ K1374
[2023-11-20] MEDS: Lactated Ringers 1,000 ML 200 ML IV ×3 (12:55→22:26)
[2023-11-20] MEDS: CHLORHEXIDINE GLUC 2% CLOTH 1 EACH TOWELETTE TOPICAL ×2 (12:55→20:17)
[2023-11-20 12:56] LABS: Absolute Lymphocyte Count 1.03 X10^3/uL (0.83-4.51); Basophil# 0.02 X10^3/uL; Basophil% 0.3 % (0-1); Eosinophil# 0.05 X10^3/uL; Eosinophils% 0.7 % (0-5); Hematocrit 38.6 % (37-47); Lymphocyte # 1.03 X10^3/ul (0.83-4.51); Lymphocyte % 13.5 % (19-41); Mean Corp Hgb Conc 33.7 g/dL (32-36); Mean Corpuscular Hgb 31.1 pg (27.0-32.0); Mean Corpuscular Volume 92.3 fL (81-99); Mean Platelet Vol. 10.4 fl (6.2-12.0); Monocyte# 0.49 X10^3/uL; Monocyte% 6.4 % (0-10); NRBC Flagged by Analyzer 0 % (0-5); Neutrophil # 6.01 X10^3/uL (2.7-7.7); Neutrophil % 78.4 % (47-70); Platelet Count 173 K/mm3 (150-450); RBC Distribution Width CV 15.3 % (11.6-14.6); RBC Distribution Width SD 51.9 fl (35.1-43.9); Red Blood Count 4.18 M/mm3 (4.2-5.4); White Blood Count 7.7 K/mm3 (4.4-11.0)
[2023-11-20] MEDS: LACTATED RINGERS 500 ML 999 ML IV ×3 (12:56→22:55)
[2023-11-20] MEDS: Acetaminophen 500 MG Tablet PO (13:31)
--- NOTE | 2023-11-20 14:08 | PCM.HP.OB ---
HPI - General General Date of Admission: 11/20/23 HPI Narrative PIETER MCKEON, is a 23 Fy/o @ 37 weeks who presents to L&D grossly ruptured without contractions. She has a fever and a headache and the tracing showed some tachycardia upon admission. She is gestational diabetic controlled on metformin. Her fasting glucose levels have been in the 80's. growth on 11/15 showed a 7lb 9oz fetus. now estimating a little over 8 lbs. Maternal Data Information SANDEEP Calculator Estimated Delivery Date Method Current WG Current Estimate 12/09/23 LMP (Uncertain) 37w 2d PFSH [facility] Medical History Chest pain Difficulty balancing when standing Fatigue Severe headache Home Medications ondansetron 4 mg disintegrating tablet 4 mg PO Q8H PRN PRN Nausea #10 tabs 08/07/23 [Rx Last Taken 11/19/23] sertraline 25 mg tablet (Zoloft) 25 mg PO DAILY depression #30 tabs 08/24/23 [Rx Last Taken 11/19/23 21:00 25 mg] blood sugar diagnostic (Blood Glucose Test strips) #120 ea 09/18/23 [Rx Last Taken Unknown] blood-glucose meter #1 ea 09/18/23 [Rx Last Taken Unknown] lancets #200 ea 09/18/23 [Rx Last Taken Unknown] aspirin 81 mg tablet,delayed release 81 mg PO DAILY prevent blood clots #90 tabs 10/02/23 [Rx Last Taken 11/19/23 09:00 81 mg] ferrous fumarate 325 mg (106 mg iron) tablet 325 mg PO DAILY take at evening meal #90 tabs 10/02/23 [Rx Last Taken 11/19/23] metformin 1,000 mg tablet 1,000 mg PO DAILY gest diabetes #30 tabs 10/02/23 [Rx Last Taken 11/19/23 18:00 1,000 mg] vitamins with calcium no.72-iron 29 mg-folic acid 1 mg tablet 1 tab PO DAILY take in morning #90 tabs 10/02/23 [Rx Last Taken 11/16/23 09:00 1 TAB] Allergy/AdvReac Type Severity Reaction Status Date / Time Latex, Natural Rubber Allergy Mild Hives Verified 11/20/23 12:29 Penicillins Allergy Hives Verified 11/20/23 12:29 Family History Grandmother Breast cancer Colon cancer Thyroid disorder Unknown Infertility Social History household members: spouse housing: house number of children: 0 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 history of recent travel: No sexually active: Yes Smoking Status: Never smoker alcohol intake: never substance use type: does not use what type of physical activity do you participate in: walking seatbelt use: always do you feel safe at home: Yes additional social history: - Сергей History 1 Elective abortions Hx Para 0 Spontaneous abortions Hx # Term Pregnancies Ectopic pregnancies Hx # Pregnancies Multiple births # of living children Visit Details Expected Delivery Route/Plan Labor Preferences- CB/BF classes: encouraged labor support person: Sam labor intervention preferences: [] pain management options preferred: epidural cut cord/dad catch: yes : yes PP control planned: condoms discussed possible routes of delivery and associated risks: [] special requests: [] Plans Covid status: + 09/01/23 Flu vaccine: declines Tdap vaccine: 10/02/23 Rhogam: 09/18/2023 LARC form signed: completed Problem list reviewed and updated with the most current plan of care details and appropriate orders placed. Relevant counseling for the gestational age provided. Continue routine care and follow up unless otherwise noted in visit notes/problem list details OB Flowsheet Initial Weight: Not Recorded Date <del>?</del> EGA Weight BP Urine Prot <del>?</del> Glucose FHR FuHt Pres Dilation <del>?</del> Effaced St Visit Note 08/24/23 <del>?</del> 24w 5d 226 lb 2 oz 111/61 111/61 <del>?</del> 160 27 <del>?</del> KW- transfer of care. Hx of anxiety and depression-off of medication per last office and now having increased sx. discussed medication use. Wants to try zoloft. 28 week labs ordered and explained. KW- transfer of care-upset with lack of communication of previous practice (mother with her today). Did not have early GCT. Records requested. Hx of anxiety and depression-off of medication per last office and now having increased sx. discussed medication use. Wants to try zoloft. 28 week labs ordered and explained. New OB folder given. 09/18/23 <del>?</del> 28w 2d 236 lb 2 oz 121/79 <del>?</del> 145 29 <del>?</del> LC- no ctx/lof/vb. good fm. mild anemia will start additional iron. LC- no ctx/lof/vb. good fm. mild anemia will start additional iron. rhogam today. larc completed. LC- no ctx/lof/vb. good fm. mild anemia will start additional iron. rhogam today. larc completed. glucose pending 10/02/23 <del>?</del> 30w 2d 237 lb 2 oz 124/72 Negative <del>?</del> Negative 157 31 <del>?</del> MH-No VB,LOF. Good FM. Not checking glucose. Long dicussion on GDM, anemia, PNV, Fe and ASA sent. tdap given. 10/13/23 <del>?</del> 31w 6d 236 lb 120/76 Negative <del>?</del> Negative 135 35 <del>?</del> KW- no vb/lof/cramping. good fm. reviewed BS log and most under perimeters. On metformin per Dr. Swanson. discussed growth US and NSTs starting next week. patient verbalized understanding. Repeat CBC today. 10/16/23 <del>?</del> 32w 2d 237 lb 122/70 Negative <del>?</del> Negative 140 <del>?</del> MH-NST only reactive. Glucose review per Dr Swanson. 10/18/23 <del>?</del> 32w 4d 235 lb 2 oz 133/77 Negative <del>?</del> Negative 145 <del>?</del> KW-reactive NST. Doing well. had elevated BS last night and sent to Dr swanson. doing well today KW-reactive NST. Doing well. had elevated BS last night and sent to Dr swanson. doing well and has growth US today 10/23/23 <del>?</del> 33w 2d 236 lb 6 oz 122/70 122/70 Negative <del>?</del> Negative 150 <del>?</del> JV- glucose levels are stable on metformin with exception of one 220 on thanksgiving (before dinner) nst reactive 10/26/23 <del>?</del> 33w 5d 238 lb 8 oz 124/68 <del>?</del> 145 35 <del>?</del> kw-no vb/lof/ctx. good fm. variables with NST. to [facility] for extended monitoring. reports good bps. headaches on and off over last week. pre e labs in [facility] 10/30/23 <del>?</del> 34w 2d 237 lb 110/70 Trace <del>?</del> Negative <del>?</del> LC- nst only. normal glucose. monitor for bp arrived from today 11/02/23 <del>?</del> 34w 5d 238 lb 4 oz 127/63 Negative <del>?</del> Negative 145 <del>?</del> KW-NST only. pre e labs today. reports good bps and BS. letter for work needed-does not qualify for FMLA 11/06/23 <del>?</del> 35w 2d 238 lb 6 oz 104/74 Trace <del>?</del> Negative 150 <del>?</del> MH-NST only reactive. Glucose nl and reporting to Dr Swanson. Normal BPs. Not much fluid intake today and enc to increase water. Denies headache, vision changes. 11/09/23 <del>?</del> 35w 5d 240 lb 6 oz 132/84 Negative <del>?</del> Negative 150 37 <del>?</del> MH-Ractive NST. Glucose nl and reporting to Dr Swanson. Pre E labs today. good FM. NO VB, LOF or CTX MH-Reactive NST. Glucose nl and reporting to Dr Swanson. Pre E labs today. good FM. NO VB, LOF or CTX 11/15/23 <del>?</del> 36w 4d 238 lb 130/82 Negative <del>?</del> Negative 150 <del>?</del> MH-NST only reactive. Still good BS control. Growth US today. 11/16/23 <del>?</del> 36w 6d 238 lb 8.642 oz 119/57 105/55 <del>?</del> 135 <del>?</del> -1 evaluated in after fall. GBS done today [facility] 07/04 and US shows no placental abruption. Rhogam today evaluated in after fall. GBS done today [facility] 07/04 and US shows no placental abruption. Rhogam today. Discussed with JV PC/S for suspected macrosomia. scheduled for 12/04 evaluated in after fall. GBS done today [facility] 07/04 and US shows no placental abruption. Rhogam today. Discussed with JV PC/S for suspected macrosomia. scheduled for 12/04. SVE attempted. unable to tolerate ROS Constitutional Constitutional: Denies change in weight, fatigue, fever(s), headache(s), poor appetite or weakness Eyes Eyes: Denies blurry vision, change in vision, seeing flashes or spots in vision ENT HEENT: Denies dizziness, headache(s), loss taste/smell or sore throat Cardiovascular Cardiovascular: Denies chest pain, dizziness, dyspnea, irregular heart rhythm, leg edema, palpitations, rapid heart rate or vomiting Respiratory/Chest Respiratory/Chest: Denies chest tightness, cough, dyspnea or breast pain Gastrointestinal Gastrointestinal: Denies abdominal pain, anorexia, constipation, cramping, diarrhea, hemorrhoids, vomiting or weight changes Genitourinary Genitourinary: Denies dysuria, flank pain, genital lesions, genital pain, urinary frequency or urinary urgency Musculoskeletal Musculoskeletal: Denies back pain, difficulty walking, joint pain, limited range of motion, muscle cramps or numbness Integumentary Integumentary: Denies lesions or unusual bruising Neurologic Neurologic: Denies abnormal movements, abnormal speech, dizziness, numbness, seizure-like activity or syncope Psychiatric Psychiatric: Denies anxiety, behavioral changes, change in appetite, change in libido, cognitive impairment, confusion, depression, difficulty concentrating, hallucinations or suicidal thoughts Endocrine Endocrinology: Denies excessive sweating, polydipsia or polyuria Hematologic/Lymphatic Hematologic/Lymphatic: Denies easy bleeding, easy bruising or lymphadenopathy Allergic/Immunologic Allergic/Immunologic: Denies itchy eyes, lip swelling, seasonal rhinorrhea, rhinitis, throat swelling, tongue swelling, eczemia, wheezing or asthma Vital Signs Vital Signs Vital Signs: 11/20/23 12:31 11/20/23 12:31 Pulse Rate 127 H Blood Pressure 128/68 H BP Systolic 128 BP Diastolic 68 Weight Weight: 237 lb 1 oz Body Mass Index (BMI) 40.6 Physical Exam Const alert, oriented x3, no apparent distress and healthy appearing General Appearance: cooperative; Negative for anxious HEENT normocephalic Face and Sinus: normal facial exam Eyes EOMs intact bilaterally and no scleral icterus General Eye: normal appearance of both eyes Neck full ROM and supple Lymph Lymphatic: no lymphadenopathy noted Chest Chest: abnormal inspection of the chest Resp normal respiratory effort Effort and Inspection: able to speak in complete sentences Cardio regular rate GI soft to palpation and non-tender Inspection: gravid Palpation: soft; Negative for tender external exam normal Amniotic Fluid: ROM+plus Back/Spine no CVA tenderness Extremity normal to inspection, full ROM and no clubbing, cyanosis or edema General Extremity: Negative for calf tenderness or edema Skin Lesions: no lesions Rashes: no rashes Psych mental status grossly normal Labs Labs Labs: Blood Type A NEGATIVE Antibody Screen NEGATIVE Hct 38.6 % (37-47) Hgb 13.0 g/dL (12.0-15.0) Obstetrics Ultrasound Syphilis Total Ab Non-reactive Rubella IgG Antibody Pending Hep Bs Antigen Pending Hepatitis C Antibody Pending Chlamydia DNA (GIRISH) Negative (Negative) N.gonorrhoeae DNA (GIRISH) Negative (Negative) HIV 1&2 Antibody Non-Reactive (Nonreactive) Glucose 1 Hr 50 gm 187 mg/dL (70-140) H Group B Strep DNA Negative (Negative) Assessment & Plan (1) UTI in : QUALIFIERS: Trimester: third trimester Qualified Code(s): O23.43 - Unspecified infection of urinary tract in , third trimester COMMENT: culture sent, fosfomycin given in triage 11/11 (2) Proteinuria affecting : QUALIFIERS: Trimester: third trimester Qualified Code(s): O12.13 - Gestational proteinuria, third trimester COMMENT: repeat pre e labs weekly, bps at home-to get bp cuff from . urine culture sent and macrobid ordered for suspected UTI 11/11 (3) Uterine size date discrepancy : COMMENT: 8 lbs estimated at 36 weeks. consider primary section S>D Growth at 32 week-99%. Records reviewed and early US done by previous practice. also GDM. growth at 36 weeks. consider possible P C/S if appropriate. (4) Monilial vaginitis: COMMENT: Reviewed SK[employer]RIER skin care. Wrote out use of monistat 7 at pharmacy. (5) Chlamydia infection affecting : QUALIFIERS: Trimester: first trimester Qualified Code(s): O98.811 - Other maternal infectious and parasitic diseases complicating , first trimester; A74.9 - Chlamydial infection, unspecified COMMENT: + 1st trim. SILVIA 10/02/23:negative. Check at 36 wk (6) COVID-19 affecting in third trimester: COMMENT: asa: sent to pharmacy (7) Gestational diabetes mellitus (GDM) affecting , antepartum: COMMENT: metformin. NSTs and growth US at 32 and 36 weeks. testing supplies ordered-4x daily; not able to comprehend checking: ref to Dr Swanson and dietitian. (8) Rh negative status during : QUALIFIERS: Trimester: third trimester Qualified Code(s): O26.893 - Other specified related conditions, third trimester; Z67.91 - Unspecified blood type, Rh negative COMMENT: given 09/18/23 (9) Anemia affecting : QUALIFIERS: Trimester: third trimester Qualified Code(s): O99.013 - Anemia complicating , third trimester COMMENT: oral iron/reviewed need for use/sent to pharmacy PNV and also Fe. repeat cbc in 4 weeks. (32 weeks) (10) Depression affecting : COMMENT: started zoloft 25mg:stable (11) Autism spectrum: COMMENT: high functioning-needs additional time and explanation. 40 min appt: reviewed how to check glucose and wrote down instructions. Also taking PNV, Fe and ASA. (12) Supervision of high risk , antepartum: COMMENT: [id number] SANDEEP 12/09/23 Spouse Dominguez NEEDS URINE CULTURE:10/02/23:contaminant only (13) : QUALIFIERS: Weeks of gestation: 35 weeks Qualified Code(s): Z3A.35 - 35 weeks gestation of COMMENT: NIPT with prior practice. records requested PLAN: Plan Patient presents IOL, plan management for with pitocin/AROM. Pain management: plans epidural. GBS negative. Management of any complications: medication controlled dm plan for q 2 hr glucose levels until in active labor then q 1 hr fever - likely due to recent UTI but will obtain covid cultures and will mask in the rom comanagement with [employer] Work[employer] BRY Diaz. I have reviewed the [facility] and made any clinically relevant updates.
[2023-11-20] MEDS: Oxytocin 15 Units/NS 250ml 15 UNITS/250 ML IV.SOLN 2 UNITS IV (14:27)
[2023-11-20 14:39] LABS: Bedside Glucose 84 mg/dL (74-106)
[2023-11-20 15:38] LABS: Rubella IgG Reactive (Nonreactive); Syphilis Antibodies Non-reactive
[2023-11-20 15:44] LABS: Bedside Glucose 56 mg/dL (74-106)
[2023-11-20 15:59] LABS: Hepatitis B Surface Antigen Non-Reactive (Nonreactive); Hepatitis C Antibody Non-Reactive (Nonreactive)
[2023-11-20 16:05] LABS: Bedside Glucose 81 mg/dL (74-106)
[2023-11-20 16:55] LABS: Bedside Glucose 69 mg/dL (74-106)
--- NOTE | 2023-11-20 17:42 | PCM.PN.BLA ---
Progress Note Coping well with contractions current tracing: FHT: 140 Moderate variability reactive no decelerations category I tracing [place]: 3-5 minute Contractions Membranes: SROM at 1000am for clear fluid SVE:/-3 A/P: Continue with position changes Titrate pitocin per protocol Epidural when desired per anesthesia Monitor glucose per protocol due to GDM Anticipate Dr Jean-Baptiste aware of above assessment and agrees with plan of care Assessment & Plan Assessment/Plan (1) SROM (spontaneous rupture of membranes): (2) UTI in : QUALIFIERS: Trimester: third trimester Qualified Code(s): O23.43 - Unspecified infection of urinary tract in , third trimester (3) Proteinuria affecting : QUALIFIERS: Trimester: third trimester Qualified Code(s): O12.13 - Gestational proteinuria, third trimester (4) Uterine size date discrepancy : (5) Monilial vaginitis: (6) Chlamydia infection affecting : QUALIFIERS: Trimester: first trimester Qualified Code(s): O98.811 - Other maternal infectious and parasitic diseases complicating , first trimester; A74.9 - Chlamydial infection, unspecified (7) COVID-19 affecting in third trimester: (8) Gestational diabetes mellitus (GDM) affecting , antepartum: (9) Rh negative status during : QUALIFIERS: Trimester: third trimester Qualified Code(s): O26.893 - Other specified related conditions, third trimester; Z67.91 - Unspecified blood type, Rh negative (10) Anemia affecting : QUALIFIERS: Trimester: third trimester Qualified Code(s): O99.013 - Anemia complicating , third trimester (11) Depression affecting : (12) Anxiety during : (13) Autism spectrum: (14) Supervision of high risk , antepartum: (15) : QUALIFIERS: Weeks of gestation: 35 weeks Qualified Code(s): Z3A.35 - 35 weeks gestation of Multi Select Codes Urinary/Genital Urinary/Genital CPT Codes: No Charge
[2023-11-20 17:52] LABS: Bedside Glucose 73 mg/dL (74-106)
[2023-11-20 18:51] LABS: Bedside Glucose 74 mg/dL (74-106)
[2023-11-20] MEDS: Sertraline 50 MG Tablet 25 MG PO (21:52)
--- NOTE | 2023-11-20 22:29 | PCM.PN.BLA ---
Progress Note Coping well with contractions and up walking in hallway current tracing: FHT: 130 Moderate variability reactive no decelerations category I tracing [place]: 2-3 minute Contractions Membranes: SROM at 1000 this am, remains clear fluid SVE:3/80/-2 Pitocin: 12 mu A/P: Continue with position changes Titrate pitocin per protocol Epidural upon request per anesthesia Anticipate Dr Jean-Baptiste aware of above assessment and agrees with plan of care Assessment & Plan Assessment/Plan (1) SROM (spontaneous rupture of membranes): (2) UTI in : QUALIFIERS: Trimester: third trimester Qualified Code(s): O23.43 - Unspecified infection of urinary tract in , third trimester (3) Proteinuria affecting : QUALIFIERS: Trimester: third trimester Qualified Code(s): O12.13 - Gestational proteinuria, third trimester (4) Uterine size date discrepancy : (5) Monilial vaginitis: (6) Chlamydia infection affecting : QUALIFIERS: Trimester: first trimester Qualified Code(s): O98.811 - Other maternal infectious and parasitic diseases complicating , first trimester; A74.9 - Chlamydial infection, unspecified (7) COVID-19 affecting in third trimester: (8) Gestational diabetes mellitus (GDM) affecting , antepartum: (9) Rh negative status during : QUALIFIERS: Trimester: third trimester Qualified Code(s): O26.893 - Other specified related conditions, third trimester; Z67.91 - Unspecified blood type, Rh negative (10) Anemia affecting : QUALIFIERS: Trimester: third trimester Qualified Code(s): O99.013 - Anemia complicating , third trimester (11) Depression affecting : (12) Anxiety during : (13) Autism spectrum: (14) Supervision of high risk , antepartum: (15) : QUALIFIERS: Weeks of gestation: 35 weeks Qualified Code(s): Z3A.35 - 35 weeks gestation of Multi Select Codes Urinary/Genital Urinary/Genital CPT Codes: No Charge
[2023-11-20 23:15] LABS: Bedside Glucose 77 mg/dL (74-106)
[2023-11-20] MEDS: fentaNYL-bupivacaine (epidural) 100 ML BAG EPIDURAL (23:46)
[2023-11-21] VITALS (30 sets, daily range): BP systolic 104–134; BP diastolic 50–82; PULSE 82–148; RESP 16; TEMP 36.1–37.6; O2SAT 96–100
[2023-11-21] MEDS: 0.9% Saline Lock 10 ML Syringe IV ×4 (02:30→17:30)
[2023-11-21] MEDS: Ondansetron 4 MG/2 ML Vial IV ×2 (02:30→11:47)
[2023-11-21] MEDS: fentaNYL-bupivacaine (epidural) 100 ML BAG EPIDURAL ×2 (03:17→07:22)
[2023-11-21] MEDS: Lactated Ringers 1,000 ML 200 ML IV ×2 (03:18→07:23)
[2023-11-21 03:38] LABS: Bedside Glucose 72 mg/dL (74-106)
--- NOTE | 2023-11-21 06:40 | PCM.PN.BLA ---
Progress Note comfortable with epidural current tracing: FHT: 135 Moderate variability reactive occasional variables noted with ctx. category II tracing. Dr Chase aware [place]: 2-4 Contractions Membranes:SROM at 1000 11/20/23 remains clear SVE:/ Pitocin: 26 mu MVU now 190 A/P: Continue with position changes Titrate pitocin per protocol Epidural per anesthesia Anticipate Dr Jean-Baptiste aware of above assessment and agrees with plan of care Assessment & Plan Assessment/Plan (1) SROM (spontaneous rupture of membranes): (2) Fall: (3) UTI in : QUALIFIERS: Trimester: third trimester Qualified Code(s): O23.43 - Unspecified infection of urinary tract in , third trimester (4) Proteinuria affecting : QUALIFIERS: Trimester: third trimester Qualified Code(s): O12.13 - Gestational proteinuria, third trimester (5) Uterine size date discrepancy : (6) Monilial vaginitis: (7) Chlamydia infection affecting : QUALIFIERS: Trimester: first trimester Qualified Code(s): O98.811 - Other maternal infectious and parasitic diseases complicating , first trimester; A74.9 - Chlamydial infection, unspecified (8) COVID-19 affecting in third trimester: (9) Gestational diabetes mellitus (GDM) affecting , antepartum: (10) Rh negative status during : QUALIFIERS: Trimester: third trimester Qualified Code(s): O26.893 - Other specified related conditions, third trimester; Z67.91 - Unspecified blood type, Rh negative (11) Anemia affecting : QUALIFIERS: Trimester: third trimester Qualified Code(s): O99.013 - Anemia complicating , third trimester (12) Depression affecting : (13) Anxiety during : (14) Autism spectrum: (15) Supervision of high risk , antepartum: (16) : QUALIFIERS: Weeks of gestation: 35 weeks Qualified Code(s): Z3A.35 - 35 weeks gestation of Multi Select Codes Urinary/Genital Urinary/Genital CPT Codes: No Charge
[2023-11-21 06:43] LABS: Bedside Glucose 77 mg/dL (74-106)
[2023-11-21] MEDS: Oxytocin 15 Units/NS 250ml 15 UNITS/250 ML IV.SOLN 26 UNITS IV (07:23)
[2023-11-21 09:19] LABS: Bedside Glucose 67 mg/dL (74-106)
[2023-11-21 09:19] LABS: Bedside Glucose 73 mg/dL (74-106)
[2023-11-21] MEDS: Acetaminophen 500 MG Tablet PO (09:42)
[2023-11-21 10:02] LABS: Bedside Glucose 91 mg/dL (74-106)
[2023-11-21 11:02] LABS: Bedside Glucose 77 mg/dL (74-106)
[2023-11-21 13:06] LABS: Bedside Glucose 87 mg/dL (74-106)
[2023-11-21] MEDS: Methylergonovine 0.2 MG/ML Ampul 0.200000000000000011 MG IM (13:47)
[2023-11-21] MEDS: Carboprost Tromethamine 250 MCG/ML Ampul IM (13:57)
[2023-11-21] MEDS: miSOPROStol 200 MCG Tablet 1000 MCG RC (14:00)
[2023-11-21] MEDS: Oxytocin 15 Units/NS 250ml 15 UNITS/250 ML IV.SOLN 83 UNITS IV (14:00)
[2023-11-21] MEDS: LACTATED RINGERS 500 ML 200 ML IV (14:06)
[2023-11-21] MEDS: TRANEXAMIC ACID 1,000 MG in 0.9% Normal Saline (100mL Bag) 100 ML 440 MG IV (14:15)
--- NOTE | 2023-11-21 14:20 | EX.PCM.OBRPT ---
Maternal Data Information SANDEEP Calculator Estimated Delivery Date Method Current WG Current Estimate 12/09/23 LMP (Uncertain) 37w 3d Final SANDEEP: 12/09/23 Final SANDEEP Source: LMP Gestational age: 37 weeks 3 days [place] Doctor Who Attended Delivery: Zuhair Aguilera Vaginal Delivery Maternal Presentation Maternal Presentation: Spontaneous Rupture of Membranes Type of Induction: Pitocin Medical Reason for Induction: Premature Rupture of Membranes Operative Information Date of Procedure: 11/21/23 Pre-Operative Diagnosis: 23 y/o @ 37 weeks, GDMA2 on metformin, SROM, Poor pushing effort in labor Post-Operative Diagnosis: 23 y/o @ 37 weeks, GDMA2 on metformin, SROM, Poor pushing effort in labor, post hemorrhage Surgery / Procedure Performed: Vacuum Assisted Vaginal Delivery Type of Anesthesia: Epidural Anesthesiologist: Long Hoyt Drain: Owusu to straight drain Estimated Blood Loss: 1000cc Time of Delivery: 13:39 Findings Description of Procedure: Details of delivery: This is a23 year old woman who was admitted to labor and delivery for SROM and GDMA2. The decision was made to perform a vacuum extraction due to poor pushing effort for over an hour. The risk benefits and alternatives of the procedure were discussed with the patient and verbal consent was obtained. The infant was noted to be at a +2 station, the cervix was completely dilated. The infant's head was noted to be in the right occiput anterior presentation. The vacuum was placed in the correct placement in front of the posterior fontanelle. This was confirmed digitally. With the patient's next contraction, the vacuum was inflated and a gentle downward pressure was used to assist with bringing the baby's head to a +3 station. With the first 2 pulls there was poor suction due to meconium fluid and blood and the device popped off with minimal pulling effort. After pushing for another 30 minutes the device was better applied, with one additional pull and zero pop offs, he head was delivered atraumatically. A nuchal cord was noted. And reduced without difficulty. The anterior shoulder followed by the posterior shoulder were delivered without difficulty. The was handed off to the patient's chest. The was found to be vigorous and crying and moving of all 4 extremities. The mouth and nares were bulb suctioned. After 60 second delay the cord was clamped and cut and the infant was handed off to the awaiting nurses for routine assessment. The placenta was delivered with gentle traction and uterine massage. Inspection of the vagina cervix and perineum was performed. There were no lacerations to the vagina or to the cervix. The peritoneum was found to have a 2nd degree laceration. The perineal laceration was closed using a 2-0 Vicryl in the usual sterile fashion. There was noted to be brisk bleeding coming from the cervix. The uterus was swept and a slight amount of membranes were removed. This did not improve the condition. Pitocin was opened wide, She was given IM pitocin, methergine, hemabate, and then TXA was given. Rectal cytotec was then given and the bleeding slowed to a slow dribble only. The patient tolerated the procedure well sponge lap and needle counts were correct x2 and she is now recovering in stable condition. The nurses are currently placing a second IV and CBC stat is being collected .She is also being started on IV abx due to the manual curettage. Presentation: Vertex Amniotic Membrane Rupture Type: Spontaneous Time of Membrane Rupture: 10:00 11/20/23 Amniotic Fluid Description: Moderate meconium Placental Delivery Description: Spontaneous Placenta Disposition: [facility] Cord Vessel Description: 3 Vessels Cord Entanglement: Around neck x 1, loose Nuchal Cord Compression: Without compression Cord Gases: ABG and VBG Infant A Gender: Male (1 minute): 9 (5 minute): 9 Delayed Cord Clamping: Yes Post Vaginal Delivery Medications Given After Delivery: IV Pitocin, IM Pitocin, IM Methergin, IM Hemabate and - (txa, and cytotec ) Episiotomy Description: None Laceration: 2nd degree Complication Complications: None Multi Select Codes Urinary/Genital Urinary/Genital CPT Codes: 36312 Vaginal Delivery+ Care([facility])
[2023-11-21 14:21] LABS: Absolute Lymphocyte Count 1.06 X10^3/uL (0.83-4.51); Absolute Neutrophil Count 11.5 X10^3/uL (2.0-7.7); Basophil# 0.02 X10^3/uL; Basophil% 0.1 % (0-1); Eosinophil# 0.02 X10^3/uL; Eosinophils% 0.1 % (0-5); Hematocrit 35.5 % (37-47); Hemoglobin 12.2 g/dL (12.0-15.0); Lymphocyte # 1.06 X10^3/ul (0.83-4.51); Lymphocyte % 7.5 % (19-41); Mean Corp Hgb Conc 34.4 g/dL (32-36); Mean Corpuscular Hgb 31.7 pg (27.0-32.0); Mean Corpuscular Volume 92.2 fL (81-99); Mean Platelet Vol. 10.8 fl (6.2-12.0); Monocyte# 1.49 X10^3/uL; Monocyte% 10.6 % (0-10); NRBC Flagged by Analyzer 0 % (0-5); Neutrophil # 11.48 X10^3/uL (2.7-7.7); Neutrophil % 81.3 % (47-70); Platelet Count 201 K/mm3 (150-450); RBC Distribution Width CV 15.1 % (11.6-14.6); RBC Distribution Width SD 50.5 fl (35.1-43.9); Red Blood Count 3.85 M/mm3 (4.2-5.4); White Blood Count 14.1 K/mm3 (4.4-11.0)
--- NOTE | 2023-11-21 14:29 | DCINST_ITS ---
Discharge Instructions Diet Discharge Diet: No restrictions Activity Discharge Activity: Return to Normal Activity, May Not Drive (while taking narcotic pain medications.) and May Shower May resume sexual activity in: 4-6 weeks Dressing / Incision Call your doctor if your incision/area has: Continuous Slow Oozing, Sudden Increased Bleeding, Increased Pain/ Swelling, Increased Redness and Foul Smelling Discharge Follow Up Care Please Follow Up With: Cecille Chase DO When: Call [phone] to make an appointment with your doctor in 6 weeks. If you had elevated blood pressure or 4th degree laceration, you will need to be seen in 2 weeks. Test Results: Test results from this visit will be discussed in further detail at your follow- up appointment, if applicable. Discharge Plan Admission Admit Date/Time: 11/20/23 12:05 Primary Reason for Your Visit: vaginal delivery Attending Provider: Cecille Chase Primary Care Provider: Boogie Ham Discharge Orders/Prescriptions Prescriptions: New ibuprofen 800 mg tablet 800 mg PO Q8H PRN (Reason: pain) Qty: 30 0RF Continued sertraline [Zoloft] 25 mg tablet 25 mg PO DAILY Qty: 30 4RF ferrous fumarate 325 mg (106 mg iron) tablet 325 mg PO DAILY Qty: 90 1RF PNV,calcium 72-iron,carb-folic 29 mg iron- 1 mg tablet 1 tab PO DAILY Qty: 90 3RF Discontinued aspirin 81 mg tablet,delayed release (DR/EC) 81 mg PO DAILY Qty: 90 3RF metformin 1,000 mg tablet 1,000 mg PO DAILY Qty: 30 4RF Rx Instructions: with evening meal ondansetron [ondansetron] 4 mg tablet,disintegrating 4 mg PO Q8H PRN PRN (Reason: Nausea) Qty: 10 0RF No Action (DME) blood-glucose meter Misc See Rx Instructions .MEDSUPPLY Qty: 1 0RF Rx Instructions: As directed- Test fasting and 2 hours after meals (DME) lancets Misc See Rx Instructions .MEDSUPPLY Qty: 200 4RF Rx Instructions: As directed-fasting and 2 HR post meals (DME) Blood Glucose Test Strip See Rx Instructions .Route Qty: 120 4RF Rx Instructions: As directed- fasting and 2 hours post meals Referrals / Follow Up: Boogie Ham MD [Primary Care Provider] - Disposition Disposition (needs filled in before D/C Order can be placed): Home, Self Care
[2023-11-21] MEDS: Cefazolin 2 GM in 0.9% Normal Saline (100mL Bag) 100 ML IV (15:05)
[2023-11-21 15:28] LABS: Bedside Glucose 89 mg/dL (74-106)
[2023-11-21] MEDS: Ibuprofen 600 MG Tablet PO (18:10)
[2023-11-21] MEDS: Acetaminophen 500 MG Tablet 1000 MG PO (20:40)
[2023-11-21] MEDS: Sertraline 50 MG Tablet 25 MG PO (22:28)
[2023-11-22] VITALS: BP 99/45; PULSE 95; RESP 16; TEMP 36.1; O2SAT 96
[2023-11-22] MEDS: Ibuprofen 600 MG Tablet PO ×2 (00:10→08:21)
[2023-11-22 03:35] VITALS: BP 98/47; PULSE 62; RESP 17; TEMP 36.2; O2SAT 100
[2023-11-22] MEDS: Acetaminophen 500 MG Tablet 1000 MG PO ×3 (05:25→20:35)
[2023-11-22 05:42] LABS: Bedside Glucose 89 mg/dL (74-106)
[2023-11-22 06:22] LABS: Absolute Lymphocyte Count 1.62 X10^3/uL (0.83-4.51); Absolute Neutrophil Count 10.8 X10^3/uL (2.0-7.7); Basophil# 0.03 X10^3/uL; Basophil% 0.2 % (0-1); Eosinophil# 0.11 X10^3/uL; Eosinophils% 0.8 % (0-5); Hematocrit 26.5 % (37-47); Hemoglobin 9.1 g/dL (12.0-15.0); Lymphocyte # 1.62 X10^3/ul (0.83-4.51); Lymphocyte % 11.4 % (19-41); Mean Corp Hgb Conc 34.3 g/dL (32-36); Mean Corpuscular Hgb 31.5 pg (27.0-32.0); Mean Corpuscular Volume 91.7 fL (81-99); Mean Platelet Vol. 10.2 fl (6.2-12.0); Monocyte# 1.59 X10^3/uL; Monocyte% 11.2 % (0-10); NRBC Flagged by Analyzer 0 % (0-5); Neutrophil # 10.77 X10^3/uL (2.7-7.7); Neutrophil % 75.8 % (47-70); POSITIVE DIFFERENTIAL YES; Platelet Count 172 K/mm3 (150-450); RBC Distribution Width CV 15.2 % (11.6-14.6); RBC Distribution Width SD 50.7 fl (35.1-43.9); Red Blood Count 2.89 M/mm3 (4.2-5.4); White Blood Count 14.2 K/mm3 (4.4-11.0)
[2023-11-22 06:25] LABS: Differential Indicated SCAN CRITERIA MET
[2023-11-22 07:16] LABS: Differential Comment SCANNED
--- NOTE | 2023-11-22 08:00 | PCM.PN.OB ---
Subjective Subjective Patient doing well without complaints. Tolerating PO. Ambulating and voiding without difficulty. Feeding well. Denies chest pain, shortness of breath, calf pain/swelling, fevers, chills, lightheadedness. Her bleeding has slowed Objective Data Objective Data Vital Signs: Vital Signs Temp Pulse Resp BP Pulse Ox O2 Del Method 97.1 F L 62 17 98/47 L 100 Room Air 11/22/23 03:35 11/22/23 03:35 11/22/23 03:35 11/22/23 03:35 11/22/23 03:35 11/22/23 03:35 Oxygen Delivery Method Room Air Weight: 237 lb 1 oz Body Mass Index (BMI) 40.6 Intake & Output: Intake and Output for Last 24 Hours 11/20/23 11/21/23 11/22/23 23:59 23:59 23:59 Intake Total 2956.51 / 2956.51 4848.13 / 4848.13 Output Total 200 / 200 4700 / 4700 Balance 2756.51 / 2756.51 148.13 / 148.13 Lab / Micro Data 11/22/23 06:09 Labs: Laboratory Results - last 24 hr 11/21/23 08:38: POC Glucose 67 L 11/21/23 08:58: POC Glucose 73 L 11/21/23 09:39: POC Glucose 91 11/21/23 10:43: POC Glucose 77 11/21/23 12:40: POC Glucose 87 11/21/23 14:10: WBC 14.1 H, RBC 3.85 L, Hgb 12.2, Hct 35.5 L, MCV 92.2, MCH 31.7, MCHC 34.4, RDW Std Deviation 50.5 H, RDW Coeff of [place] 15.1 H, Plt Count 201, MPV 10.8, Immature Gran % (Auto) 0.400, Neut % (Auto) 81.3 H, Lymph % (Auto) 7.5 L, [place] % (Auto) 10.6 H, Eos % (Auto) 0.1, Baso % (Auto) 0.1, Absolute Neuts (auto) 11.5 H, Absolute Lymphs (auto) 1.06, Nucleated RBC % 0 11/21/23 15:04: POC Glucose 89 11/22/23 05:15: POC Glucose 89 11/22/23 06:09: WBC 14.2 H, RBC 2.89 L, Hgb 9.1 L, Hct 26.5 L, MCV 91.7, MCH 31.5, MCHC 34.3, RDW Std Deviation 50.7 H, RDW Coeff of [place] 15.2 H, Plt Count 172, MPV 10.2, Immature Gran % (Auto) 0.600, Neut % (Auto) 75.8 H, Lymph % (Auto) 11.4 L, [place] % (Auto) 11.2 H, Eos % (Auto) 0.8, Baso % (Auto) 0.2, Absolute Neuts (auto) 10.8 H, Absolute Lymphs (auto) 1.62, Nucleated RBC % 0, Differential Comment SCANNED, Diff Path Review May foll Micro: Microbiology 11/20/23 13:57 Nasal Secretion SARS-CoV-2 Antigen (Rapid) - Final Physical Exam Const alert and oriented x3 HEENT normocephalic Eyes PERRL Neck full ROM Resp normal respiratory effort GI soft to palpation GI Narrative: FF below U Assessment & Plan (1) Status post vacuum-assisted vaginal delivery: (2) Autism spectrum: COMMENT: high functioning-needs additional time and explanation. 40 min appt: reviewed how to check glucose and wrote down instructions. Also taking PNV, Fe and ASA. (3) Anemia: QUALIFIERS: Anemia type: unspecified type Qualified Code(s): D64.9 - Anemia, unspecified PLAN: Plan s/p PPD # 1 1. routine post delivery care 2. breast feeding- support given 3. rh positive 4. rubella immune 5. Repeat cbc at noon today
[2023-11-22 08:15] VITALS: BP 107/39; PULSE 99; RESP 14; TEMP 36.6; O2SAT 97
[2023-11-22 09:49] LABS: Bedside Glucose 76 mg/dL (74-106)
[2023-11-22 09:49] LABS: Bedside Glucose 67 mg/dL (74-106)
[2023-11-22 12:00] VITALS: BP 114/63; PULSE 103; RESP 14; O2SAT 98
[2023-11-22 12:35] LABS: Absolute Lymphocyte Count 1.33 X10^3/uL (0.83-4.51); Absolute Neutrophil Count 8.9 X10^3/uL (2.0-7.7); Basophil# 0.02 X10^3/uL; Basophil% 0.2 % (0-1); Eosinophil# 0.11 X10^3/uL; Hematocrit 25.6 % (37-47); Hemoglobin 8.5 g/dL (12.0-15.0); Lymphocyte # 1.33 X10^3/ul (0.83-4.51); Lymphocyte % 11.5 % (19-41); Mean Corp Hgb Conc 33.2 g/dL (32-36); Mean Corpuscular Hgb 30.9 pg (27.0-32.0); Mean Corpuscular Volume 93.1 fL (81-99); Mean Platelet Vol. 10.7 fl (6.2-12.0); Monocyte# 1.11 X10^3/uL; Monocyte% 9.6 % (0-10); NRBC Flagged by Analyzer 0 % (0-5); Neutrophil # 8.93 X10^3/uL (2.7-7.7); Neutrophil % 77.2 % (47-70); Platelet Count 176 K/mm3 (150-450); RBC Distribution Width CV 15.2 % (11.6-14.6); RBC Distribution Width SD 51.2 fl (35.1-43.9); Red Blood Count 2.75 M/mm3 (4.2-5.4); White Blood Count 11.6 K/mm3 (4.4-11.0)
--- OUTSIDE RECORDS SUMMARY | 2023-11-22 17:03 | XMS RPT_ITS | CCD ---
Author Name Unknown Address [address] [place] [address] Organization [facility] Care Team Providers Care Cleaning Technician Name Role Phone Evelyn Ham Primary Care Provider [phone] NORMA SENIOR MERCHANDISER-SAFETY INSTRUCTOR, [facility] Primary Care Physicia n Evelyn Ham MD Primary Care Provider PROVIDER, UNKNOWN Attending Unavailable NORMA SENIOR MERCHANDISER-SAFETY INSTRUCTOR, [facility] Primary Care Unava ilable LYNETTE SENIOR MERCHANDISER-CNM, [place] Attending Unavai tate GREEN SENIOR MERCHANDISER-SAFETY INSTRUCTOR, [facility] Primary Care Unava ilable LYNETTE SENIOR MERCHANDISER-CNM, [place]TT [place] Attending Unavai tate GREEN SENIOR MERCHANDISER-SAFETY INSTRUCTOR, [facility] Primary Care Unava ilable EDY MAYES, SANDRA Bey Attending Unavailable NORMA SENIOR MERCHANDISER-SAFETY INSTRUCTOR, [facility] Primary Care Unava ilable KIMMY SENIOR MERCHANDISER-SAFETY INSTRUCTOR, KWAME Attending Unava ilable NORMA SENIOR MERCHANDISER-SAFETY INSTRUCTOR, [facility] Primary Care Unava ilable Evelyn Ham Primary Care Provider [phone] EVELYN HAM Primary Care Unavailabl e EVELYN HAM Attending Unavailable EVELYN HAM Primary Care Unavailable EVELYN HAM Attending Unavailable EVELYN HAM Primary Care Unavailable Allergies Allergy Classification Reported Allergen(s) Allergy Type Date of Onset Reaction(s) Facility (4 sources) Latex; Translations: [LATEX] Drug Allergy 09-13-2021 [facility] (3 sources) Penicillins; Translations: [PENICILLINS] Drug Allergy 09-13-2021 Swelling [facility] (3 sources) Latex Allergy to substance 09-13-2021 Hives [facility] (3 sources) Penicillins Drug Allergy 09-13-2021 Swelling [facility] (1 source) Penicillins Drug Allergy 09-13-2021 Swelling [facility] Medications Current Medications Medication Drug Class(es) Dates Sig (Normalized) Sig (Original) cephalexin 500 mg oral tablet (1 source) Cephalosporin Antibacterial Start: 06-02-2023 End: 06-12-2023 cephalexin 500 mg oral tablet Dose : 500 mg = 1 tab(s), Oral, QID, X 10 day(s), # 40 tab(s), 0 Refill(s), 06/12/23 9:42:00 EDT, Pyelonephritis, 74.9 Start Date: 06/02/23 Stop Date: 06/12/23 Status: Ordered etonogestrel 68 mg drug implant (4 sources) Progestin Start: 01-22-2021 inject 1 mg by subcutaneous injection once Nexplanon 68 mg subcutaneous implant mg = EA, Subcutaneous, Once, 0 Refill(s) Start Date: 01/22/21 Status: Ordered FLUoxetine 20 mg oral tablet (4 sources) Serotonin Reuptake Inhibitor Start: 06-10-2022 FLUoxetine (Eqv-Prozac) 20 mg oral tablet Dose : 20 mg = 1 tab(s), Oral, qDay, # 90 tab(s), 0 Refill(s), Pharmacy: [facility]/pharmacy #[id number], 162.5, cm, 02/23/21 15:23:00 EDT, Height, kg, 02/23/21 15:23:00 EDT, Dosing Weight Start Date: 06/10/22 Status: Ordered nystatin [id number] unt/ml oral suspension (1 source) Polyene Antifungal Start: 08-10-2023 End: 08-20-2023 take 5 mL by mouth four times daily nystatin (MYCOSTATIN) 100,000 unit/mL suspension Indications: Thrush Take 5 mL by mouth four times daily for 10 days. Swish and swallow. 200 mL 0 08/10/2023 08/20/2023 Active Completed/Discontinued Medications Medication Drug Class(es) Dates Sig (Normalized) Sig (Original) benzonatate 100 mg oral capsule (3 sources) Non-narcotic Antitussive Start: 05-12-2022 benzonatate (TESSALON PERLE) 100 mg capsule Take 1-2 capsules tid prn, no more than 6 in 24 hours. 30 capsule 0 05/12/2022 Active Problems Active Problems Problem Classification Problem Date Documented Da te Episodic/Chronic Anxiety disorders (11 sources) Anxiety; Translations: [Anxiety disorder, unspecified] Onset: 09-13-2021 09-08-2022 Chronic Asthma (3 sources) Mild intermittent asthma; Translations: [Mild intermittent asthma, uncomplicated] Onset: 09-13-2021 09-08-2022 Chronic Disorders of lipid metabolism (6 sources) Mixed hyperlipidemia; Translations: [Mixed hyperlipidemia] Onset: 03-14-2022 09-08-2022 Chronic Fever of unknown origin (1 source) Fever; Translations: [Fever, unspecified] Episodic Immunizations and screening for infectious disease (1 source) Suspected disease caused by 2019-nCoV; Translations: [Suspected COVID-19 virus infection] Episodic Menstrual disorders (6 sources) Amenorrhea; Translations: [Amenorrhea, unspecified] Onset: 04-10-2023 Resolved: 07-18-2023 Chronic Mood disorders (11 sources) Depressive disorder; Translations: [Depressive disorder] Onset: 09-13-2021 09-08-2022 Chronic Mycoses (1 source) Candidiasis of mouth; Translations: [Candidal stomatitis] 08-10-2023 Episodic Other lower respiratory disease (1 source) Cough; Translations: [Cough] Episodic Other and delivery including normal (3 sources) 06-02-2023 Episodic Past or Other Problems Problem Classification Problem Date Documented Da te Episodic/Chronic Mood disorders (2 sources) Mood disorders Onset: 07-17-2023 07-17-2023 Other liver diseases (3 sources) Enzyme level - finding; Translations: [Elevated transaminase level] Onset: 03-14-2022 09-08-2022 Episodic Results Test Name Value Interpretation Reference Range Facil it Vital Signs Date Time Vital Sign Value Performing Clinician Facility 08-10-2023 17:50-0400 Body weight 100.65 kg Walk [facility] 08-10-2023 17:50-0400 Diastolic blood pressure 69 mm[Hg] Walk [facility] 08-10-2023 17:50-0400 Heart rate 115 /min Walk [facility] 08-10-2023 17:50-0400 SaO2% (BldA) [Mass fraction] 100 % Walk [facility] 08-10-2023 17:50-0400 Systolic blood pressure 122 mm[Hg] Walk [facility] 07-18-2023 13:17-0400 Body height 164.5 cm Evelyn Ham MD Work Phone: [facility] 07-18-2023 13:17-0400 Body mass index (BMI) [Ratio] 34.75 kg/m2 Evelyn Ham MD Work Phone: [facility] 07-18-2023 13:17-0400 Body weight 93.98 kg Evelyn Ham MD Work Phone: [facility] 07-18-2023 13:17-0400 Diastolic blood pressure 78 mm[Hg] Evelyn Ham MD Work Phone: [facility] 07-18-2023 13:17-0400 Heart rate 112 /min Evelyn Ham MD Work Phone: [facility] 07-18-2023 13:17-0400 SaO2% (BldA) [Mass fraction] 98 % Evelyn Ham MD Work Phone: [facility] 07-18-2023 13:17-0400 Systolic blood pressure 122 mm[Hg] Evelyn Ham MD Work Phone: [facility] 06-02-2023 08:49-0400 Diastolic Blood Pressure Non-Invasive 75 1 SANDRA SNOW MD [facility] 06-02-2023 08:49-0400 Heart rate 93 /min SANDRA SNOW MD [facility] 06-02-2023 08:49-0400 Respiratory rate 16 /min SANDRA SNOW MD [facility] 06-02-2023 08:49-0400 Systolic Blood Pressure Non-Invasive 108 1 SANDRA SNOW MD [facility] 06-02-2023 07:19-0400 Body temperature 98.24 [degF] SANDRA SNOW MD [facility] 06-02-2023 07:19-0400 Diastolic Blood Pressure Non-Invasive 84 1 SANDRA SNOW MD [facility] 06-02-2023 07:19-0400 Heart rate 101 /min SANDRA SNOW MD [facility] 06-02-2023 07:19-0400 Respiratory rate 20 /min SANDRA SNOW MD [facility] 06-02-2023 07:19-0400 Systolic Blood Pressure Non-Invasive 122 1 SANDRA SNOW MD [facility] 04-10-2023 14:01-0400 Body height 164.5 cm Evelyn Ham MD Work Phone: [facility] 04-10-2023 14:01-0400 Body mass index (BMI) [Ratio] 30.92 kg/m2 Evelyn Ham MD Work Phone: [facility] 04-10-2023 14:01-0400 Body weight 83.64 kg Evelyn Ham MD Work Phone: [facility] 04-10-2023 14:01-0400 Diastolic blood pressure 75 mm[Hg] Evelyn Ham MD Work Phone: [facility] 04-10-2023 14:01-0400 Heart rate 123 /min Evelyn Ham MD Work Phone: [facility] 04-10-2023 14:01-0400 Systolic blood pressure 112 mm[Hg] Evelny Ham MD Work Phone: [facility] 05-12-2022 09:49-0400 Body temperature 97.7 [degF] Virginia Gonzalez APRN.SAFETY INSTRUCTOR Work Phone: [facility] 05-12-2022 09:49-0400 Body weight 86.73 kg Virginia Gonzalez APRN.SANDEEP Work Phone: [facility] 05-12-2022 09:49-0400 Diastolic blood pressure 68 mm[Hg] Virginia Gonzalez APRN.SAFETY INSTRUCTOR Work Phone: [facility] 05-12-2022 09:49-0400 Heart rate 109 /min Virginia Gonzalez APRN.SAFETY INSTRUCTOR Work Phone: [facility] 05-12-2022 09:49-0400 Respiratory rate 22 /min Virginia Gonzalez APRN.SAFETY INSTRUCTOR Work Phone: [facility] 05-12-2022 09:49-0400 SaO2% (BldA) [Mass fraction] 98 % Virginia Gonzalez APRN.SANDEEP Work Phone: [facility] 05-12-2022 09:49-0400 Systolic blood pressure 124 mm[Hg] Virginia Gonzalez APRN.SAFETY INSTRUCTOR Work Phone: [facility] Encounters Encounter Date Encounter Type Care Provider Facility Start: 09-19-2023 ambulatory Shagufta Garcia RN [facility] Clinical Communication Start: 09-19-2023 Patient encounter procedure Shagufta Garcia RN [facility] Communication Start: 08-10-2023 End: 08-10-2023 ambulatory EVELYN HAM Facility:[facility] Start: 08-10-2023 End: 08-10-2023 Patient encounter procedure [facility] Procedures Date Procedure Procedure Detail Performing Clinician Start: 05-12-2022 STREP A MOLECULAR (POC) Virginia Gonzalez APRN.CNP Work Phone: Plan of Treatment Date Care Activity Detail Author Start: 2052 Zoster Vaccines (1 of 2) Zoster Vaccines (1 of 2) [facility] Start: 07-03-2025 DTaP/Tdap/Td Vaccines (7 - Td or Tdap) DTaP/Tdap/Td Vaccines (7 - Td or Tdap) [facility] Start: 07-23-2024 End: 07-23-2024 Patient encounter procedure 07/23/2024 8:15 AM EDT Office Visit [facility] [address] [place] [id number] Evelyn Ham MD [address] [place], [place] [address] [address] [facility] Start: 01-17-2024 Depresssion Monitoring Depresssion Monitoring [facility] Start: 07-28-2023 Influenza vaccination Influenza Vaccine (#1) [facility] Start: 07-18-2023 End: 07-18-2024 Comprehensive metabolic 1998 panel - Serum or Plasma Comprehensive metabolic panel Lab Routine Screening for diabetes mellitus Expected: 07/18/2023 (Approximate), Expires: 07/18/2024 [facility] Immunizations Immunization Date Immunization Notes Care Provider Fa cility 09-13-2022 influenza, injectabl e, quadrivalent, preservative free Evelyn Ham MD Work Phone: [facility] 09-13-2022 Pneumococcal Conjuga te PCV20, Pf (Prevnar 20) Evelyn Ham MD Work Phone: [facility] 09-13-2022 influenza virus vacc ine, unspecified formulation Evelyn Ham MD Work Phone: [facility] 03-29-2022 Human Papillomavirus 9-valent vaccine Evelyn Ham MD Work Phone: [facility] 03-29-2022 HPV, unspecified formulation Evelyn Ham MD Work Phone: [facility] 07-03-2015 tetanus toxoid, redu lion diphtheria toxoid, and acellular pertussis vaccine, adsorbed Evelyn Ham MD Work Phone: [facility] 12-10-2008 diphtheria, tetanus toxoids and acellular pertussis vaccine Evelyn Ham MD Work Phone: [facility] 12-10-2008 measles, mumps, rube lla, and varicella virus vaccine Evelyn Ham MD Work Phone: [facility] 12-10-2008 poliovirus vaccine, inactivated Evelyn Ham MD Work Phone: [facility] 12-31-2003 diphtheria, tetanus toxoids and acellular pertussis vaccine Evelyn Ham MD Work Phone: [facility] 12-31-2003 haemophilus influenz ae type b vaccine, PRP-T conjugate Evelyn Ham MD Work Phone: [facility] 12-31-2003 measles, mumps, rube lla, and varicella virus vaccine Evelyn Ham MD Work Phone: [facility] 06-23-2003 diphtheria, tetanus toxoids and acellular pertussis vaccine Evelyn Ham MD Work Phone: [facility] 06-23-2003 haemophilus influenz ae type b vaccine, PRP-T conjugate Evelyn Ham MD Work Phone: [facility] 06-23-2003 hepatitis B vaccine, pediatric or pediatric/adolescent dosage Evelyn Ham MD Work Phone: [facility] 06-23-2003 poliovirus vaccine, inactivated Evelyn Ham MD Work Phone: [facility] 03-19-2003 diphtheria, tetanus toxoids and acellular pertussis vaccine Evelyn Ham MD Work Phone: [facility] 03-19-2003 haemophilus influenz ae type b vaccine, PRP-T conjugate Evelyn Ham MD Work Phone: [facility] 03-19-2003 hepatitis B vaccine, pediatric or pediatric/adolescent dosage Evelyn Ham MD Work Phone: [facility] 03-19-2003 poliovirus vaccine, inactivated Evelyn Ham MD Work Phone: [facility] 2002 diphtheria, tetanus toxoids and acellular pertussis vaccine Evelyn Ham MD Work Phone: [facility] 2002 poliovirus vaccine, inactivated Evelyn Ham MD Work Phone: [facility] 2002 hepatitis B vaccine, pediatric or pediatric/adolescent dosage Evelyn Ham MD Work Phone: [facility] Payers Date Payer Category Payer Private Health [facility] [id number] 2021-Present [phone] [address] [address] [place] [address] HMO [id number] 2016 Private Health Insurance [id number] 2016 Unknown [id number] 2002 Unknown [id number] 2002 Unknown [id number] 2002 Unknown [id number] 2002 Unknown [id number] 2002 Unknown [id number] Social History Date Type Detail Facility Start: 05-12-2022 End: 08-10-2023 Tobacco smoking status MTIS Never smoked tobacco [facility] Start: 05-12-2022 End: 08-10-2023 Tobacco use and exposure Smokeless tobacco non-user [facility] Start: 05-12-2022 End: 08-10-2023 Alcohol intake Lifetime non-drinker (finding) [facility] Start: 05-12-2022 History SDOH Alcohol Frequency 1 [facility] Start: 2002 Sex Assigned At Not on file [facility] Start: 05-02-2022 End: 07-18-2023 Exposure to SARS-CoV-2 (event) Not sure [facility] Work Phone: Start: 04-10-2023 End: 07-18-2023 Alcohol intake Ex-drinker (finding) [facility] Sex Assigned At Female [facility] Start: 07-17-2023 End: 07-18-2023 History of Social function [facility] Start: 07-17-2023 End: 07-18-2023 Alcohol Use Disorder Identification Test - Consumption [AUDIT-C] [facility] Frequency of Alcohol Consumption Not on file [facility] (I/We) worried wheth er (my/our) food would run out before (I/we) got money to buy more. Never true [facility] In the past 12 month s, was there a time when you were not able to pay the mortgage or rent on time? No [facility] Functional Status Date Assessment Result Facility 06-02-2023 Functional Status Independent [facility] 06-02-2023 Functional Status Standard Safet y ID band on, Call device within reach, Bed in low position, Wheels locked [facility] Mental Status Date Assessment Result Facility 06-02-2023 Mental Status Orientation Oriented x 4 [facility] 06-02-2023 Mental Status [facility] Clinical Notes 05-12-2022 to 09-19-2023 Telephone Encounter - Shagufta Garcia RN - 09/19/2023 10:12 PM EDTTelephone Encounter - Shagufta Garcia RN - 09/19/2023 10:12 PM Omkar Barlow MA - 07/18/2023 2:00 PM EDT Note Date & Type Note Facility 09-19-2023 Telephone encounter Note S- DOMINIC Rn returning call from patient. R- CAC Rn LVM to call back if still in need of assistance. Reason for Disposition Message left on unidentified voice mail. Phone number verified. Protocols used: No Contact or Duplicate Contact [id number] [facility] 09-19-2023 Miscellaneous Notes S- DOMINIC Rn returning call from patient. R- CAC Rn LVM to call back if still in need of assistance. Reason for Disposition Message left on unidentified voice mail. Phone number verified. Protocols used: No Contact or Duplicate Contact [id number] documented in this encounter [facility] 08-10-2023 Note HNO ID: [id number] Author: Fanny Mendoza APRN.SAFETY INSTRUCTOR Service: ? Author Type: Nurse Practitioner Type: Progress Notes Filed: 08/10/2023 7:02 PM Note Text: 08/10/2023 Patient presents with: thrush: Was on 2 antibiotics and was given fluids in the er, SUBJECTIVE: This is a 22 year old female that is here today for acute onset of thick white coating to tongue, was recently prescribed 2 antibiotics. Is currently 26 wks . Pertinent medical history. No past medical history on file. ALLERGIES Latex and Penicillins MEDICATIONS Current Outpatient Medications Medication Sig nystatin (MYCOSTATIN) 100,000 unit/mL suspension Take 5 mL by mouth four times daily for 10 days. Swish and swallow. benzonatate (TESSALON PERLE) 100 mg capsule Take 1-2 capsules tid prn, no more than 6 in 24 hours. (Patient not taking: Reported on 08/10/2023) No current facility-administered medications for this visit. SOCIAL HISTORY Social History Tobacco Use Smoking status: Never Smokeless tobacco: Never Substance Use Topics Alcohol use: Never Drug use: Never REVIEW OF SYSTEMS Review of Systems Constitutional: Negative. HENT: Positive for sore throat (thick white coating to tongue). OBJECTIVE: BP 122/69 Pulse 115 Wt 100.7 kg (221 lb 14.4 oz) LMP 04/27/2022 SpO2 100% Physical Exam Vitals and nursing note reviewed. Constitutional: Appearance: Normal appearance. She is well-developed. She is not toxic-appearing. HENT: Head: Normocephalic and atraumatic. Mouth/Throat: Lips: [place]. Mouth: Mucous membranes are moist. Pharynx: Uvula midline. Oropharyngeal exudate and posterior oropharyngeal erythema present. Pulmonary: Effort: Pulmonary effort is normal. Musculoskeletal: Cervical back: Normal range of motion. Skin: General: Skin is warm and dry. Neurological: Mental Status: She is alert and oriented to person, place, and time. ASSESSMENT/PLAN: 1. Thrush - ICD9: 112.0, ICD10: B37.0 - NYSTATIN 100,000 UNIT/ML ORAL SUSPENSION Educational material provided Fanny Mendoza APRN.[facility] 08-10-2023 History of Presen t illness Narrative 08/10/2023 Patient presents with: thrush: Was on 2 antibiotics and was given fluids in the er, SUBJECTIVE: This is a 22 year old female that is here today for acute onset of thick white coating to tongue, was recently prescribed 2 antibiotics. Is currently 26 wks . Pertinent medical history. No past medical history on file. ALLERGIES Latex and Penicillins MEDICATIONS Current Outpatient Medications Medication Sig nystatin (MYCOSTATIN) 100,000 unit/mL suspension Take 5 mL by mouth four times daily for 10 days. Swish and swallow. benzonatate (TESSALON PERLE) 100 mg capsule Take 1-2 capsules tid prn, no more than 6 in 24 hours. (Patient not taking: Reported on 08/10/2023) No current facility-administered medications for this visit. SOCIAL HISTORY Social History Tobacco Use Smoking status: Never Smokeless tobacco: Never Substance Use Topics Alcohol use: Never Drug use: Never REVIEW OF SYSTEMS Review of Systems Constitutional: Negative. HENT: Positive for sore throat (thick white coating to tongue). OBJECTIVE: BP 122/69 Pulse 115 Wt 100.7 kg (221 lb 14.4 oz) LMP 04/27/2022 SpO2 100% Physical Exam Vitals and nursing note reviewed. Constitutional: Appearance: Normal appearance. She is well-developed. She is not toxic-appearing. HENT: Head: Normocephalic and atraumatic. Mouth/Throat: Lips: Armona. Mouth: Mucous membranes are moist. Pharynx: Uvula midline. Oropharyngeal exudate and posterior oropharyngeal erythema present. Pulmonary: Effort: Pulmonary effort is normal. Musculoskeletal: Cervical back: Normal range of motion. Skin: General: Skin is warm and dry. Neurological: Mental Status: She is alert and oriented to person, place, and time. ASSESSMENT/PLAN: 1. Thrush - ICD9: 112.0, ICD10: B37.0 - NYSTATIN 100,000 UNIT/ML ORAL SUSPENSION Educational material provided Fanny Mendoza APRN.CNP documented in this encounter [facility] 07-18-2023 History of Presen t illness Narrative Patient verified by last name and date of . Images from the original note were not included. 07/18/2023 Pieter Mckeon (: 2000) is a 22 y.o. female , Established patient, here for evaluation of the following chief complaint(s): Annual Exam and Health Maintenance (Hep c and hiv screening- refuse/Covid vaccine- not done/Hpv vaccine- not right now ) ASSESSMENT/PLAN: 1. Annual physical exam Comments: Gravid female 2. Mixed hyperlipidemia Assessment & Plan: Stable, continue low-fat low-cholesterol diet Orders: - Lipid panel 3. Screening for diabetes mellitus - Comprehensive metabolic panel Follow up in about 1 year (around 07/18/2024). SUBJECTIVE/OBJECTIVE: HPI -Pieter comes in today for an annual exam, she needs paperwork filled out for insurance discount since she has no complaints. She is . Review of Systems Constitutional: Negative for chills and fever. Respiratory: Negative for shortness of breath. Cardiovascular: Negative for chest pain and palpitations. Gastrointestinal: Negative for abdominal pain, blood in stool, constipation and diarrhea. Genitourinary: Negative for dyspareunia, dysuria, frequency, hematuria and urgency. Neurological: Negative for weakness and numbness. Psychiatric/Behavioral: Negative for dysphoric mood. The patient is not nervous/anxious. Vitals: 07/18/23 1317 BP: 122/78 Pulse: (!) 112 SpO2: 98% Weight: 207 lb 3.2 oz (94 kg) Height: 5' 4.75 (1.645 m) Physical Exam Vitals and nursing note reviewed. Constitutional: General: She is not in acute distress. Appearance: Normal appearance. HENT: Head: Normocephalic. Right Ear: Tympanic membrane, ear canal and external ear normal. Left Ear: Tympanic membrane, ear canal and external ear normal. Mouth/Throat: Mouth: Mucous membranes are moist. Pharynx: Oropharynx is clear. Eyes: Extraocular Movements: Extraocular movements intact. Pupils: Pupils are equal, round, and reactive to light. Cardiovascular: Rate and Rhythm: Normal rate and regular rhythm. Heart sounds: Normal heart sounds. No murmur heard. Pulmonary: Effort: Pulmonary effort is normal. Breath sounds: Normal breath sounds. Abdominal: General: Bowel sounds are normal. Palpations: Abdomen is soft. Musculoskeletal: General: Normal range of motion. Cervical back: Normal range of motion. Lymphadenopathy: Cervical: No cervical adenopathy. Skin: General: Skin is warm and dry. Neurological: General: No focal deficit present. Mental Status: She is alert and oriented to person, place, and time. Psychiatric: Mood and Affect: Mood normal. An electronic signature was used to authenticate this note. Evelyn Ham MD 07/18/2023 2:00 PM documented in this encounter [facility] 07-18-2023 Evaluation + Plan note Associated Problem(s): Mixed hyperlipidemia Stable, continue low-fat low-cholesterol diet [facility] 07-18-2023 Miscellaneous Notes Associated Problem(s): Mixed hyperlipidemia Stable, continue low-fat low-cholesterol diet documented in this encounter [facility] 06-04-2023 Note . MICRO - Microbiology PROCEDURE: Urine Culture [*1] SOURCE: Urine, Clean Catch BODY SITE: COLLECTED DATE/TIME: 06/02/2023 09:49 EDT RECEIVED DATE/TIME: 06/02/2023 16:30 EDT START DATE/TIME: 06/02/2023 16:31 EDT FREE TEXT SOURCE: FINAL REPORTS Final Report [] Verified Date/Time/Personnel: 06/04/2023 07:27 EDT 50,000 - 100,000 cfu/ml Mixed growth consistent with normal urogenital britt. PRELIMINARY REPORTS Preliminary Report [] Verified Date/Time/Personnel: 06/03/2023 10:49 EDT No growth to date Performing Locations *1: This test was performed at: [facility], [address] [place] [address], [phone] , [facility] ([place]) 06-02-2023 Evaluation + Plan note Diagnostic Tests PendingUrine Culture 06/02/23 [facility] 06-02-2023 Hospital Discharg e instructions Patient Education 06/02/2023 09:43:43 Pyelonephritis, Female (Adult) Kidney Infection (Adult Female) An infection in one or both kidneys is called pyelonephritis. It usually happens when bacteria (or rarely, viruses, fungi, or other disease-causing organisms) get into the kidney. The bacteria (or other disease-causing organisms) can enter the kidneys from the bladder or blood traveling from other parts of the body. A kidney infection can become serious. It can cause severe illness, scarring of the kidneys, or kidney failure if not treated properly. Common causes for this problem include: Not keeping the genital area clean and dry, which promotes the growth of bacteria Wiping back to front which drags bacteria from the rectum toward the urinary opening (urethra) Wearing tight pants or underwear (this lets moisture build up in the genital area, which helps bacteria grow) Holding urine in for long periods of time Dehydration Kidney infections can cause symptoms similar to a bladder infection. Symptoms include: Pain (or burning) when urinating Having to urinate more often than usual Blood in the urine (pink or red) Abdominal pain or discomfort, usually in the lower abdomen Pain in the side or back Pain above the pubic bone Fever or chills Vomiting Loss of appetite Treatment is oral antibiotics, or in more severe cases, intramuscular or IV antibiotics. These are started right away and may be changed once urine culture results determine the infecting organisms. Treatment helps prevent a more serious kidney infection. Medicines Medicines can help in the treatment of a bladder infection: Take antibiotics until they are used up, even if you feel better. It is important to finish them to make sure the infection is gone. Unless another medicine was prescribed, you can use lawc-zfc-greqvbe medicines for pain, fever, or discomfort. If you have chronic liver of kidney disease, talk with your healthcare provider before using these medicines. Also talk with your provider if you've ever had a stomach ulcer or gastrointestinal (GI) bleeding, or are taking blood thinners. Home care The following are general care guidelines: Stay home from work or school. Rest in bed until your fever breaks and you are feeling better, or as advised by your healthcare provider. Drink lots of fluid unless you must restrict fluids for other medical reasons. This will force the medicine into your urinary system and flush the bacteria out of your body. Ask your healthcare provider how much you should drink. Don't have sex until you have finished all of your medicine and your symptoms are gone. Don't have caffeine, alcohol, or spicy foods. These foods may irritate the kidneys and bladder. Don't take bubble baths. Sensitivity to the chemicals in bubble baths can irritate the urethra. Make sure you wipe from front to back after using the toilet. Wear loose cloths and cotton underwear. Prevention These self-care steps can help prevent future infections: Drink plenty of fluids to prevent dehydration and flush out the bladder. Do this unless you must restrict fluids for other health reasons, or your healthcare provider told you not to. Proper cleaning after going to the bathroom in important. Make sure you wipe from front to back after using the toilet. Urinate more often. Don't try to hold urine in for a long time. Don't wear tight-fitting pants and underwear. Improve your diet to prevent constipation. Eat more fruits, vegetables, and fiber. Eat less junk and fatty foods. Constipation can make a urinary tract infection more likely. Talk with your healthcare provider if you have trouble with bowel movements. Urinate right after intercourse to flush out the bladder. Follow-up care Follow up with your healthcare provider, or as advised. Additional testing may be needed to make sure the infection has cleared. Close follow-up and further testing is very important to find the cause and to prevent future infections. If a urine culture was done, you will be contacted if your treatment needs to be changed. If directed, you may call to find out the results. If you had an X-ray, CT scan, or other diagnostic test, you will be notified of any new findings that may affect your care. Call 911 Call 911 if any of the following occur: Trouble breathing Fainting or loss of consciousness Rapid or very slow heart rate Weakness, dizziness, or fainting Difficulty arousing or confusion When to seek medical advice Call your healthcare provider right away if any of these occur: Fever 100.4 F (38 C) or higher, or as directed by your healthcare provider Not feeling better within 1 to 2 days after starting antibiotics Any symptom that continues after 3 days of treatment Increasing pain in the stomach, back, side, or groin area Repeated vomiting Not able to take prescribed medicine due to nausea or another reason Bloody, dark-colored, or foul smelling urine Trouble urinating or decreased urine output No urine for 8 hours, no tears when crying, sunken eyes, or dry mouth [id number] [employer]. [address] [place] [address]. All rights reserved. This information is not intended as a substitute for professional medical care. Always follow your healthcare professional's instructions. Follow Up Care 06/02/2023 07:11:40 With:COLBY OCAMPO DO Address: [address] [place] [phone] When:2-4 days With:Go to emergency room if symptoms worsen Address:Unknown When:2-4 days [facility] 06-02-2023 Note Discharge Instructions Thank you for allowing [facility] to assist you with your healthcare needs. The following is important discharge information regarding your hospital visit. Diagnosis from Today's Visit Pyelonephritis Vomiting - What to Do Next Instructions from Your Care Team No qualifying data available. Post Acute Orders No qualifying data available. You Need to Schedule the Following Appointments Follow Up with COLBY OCAMPO DO When Within 2-4 days Where: [address] [place] [phone] Follow Up with Go to emergency room if symptoms worsen When Within 2-4 days Allergies NKA Medications Please ask your primary doctor or pharmacist before taking any other medication not listed, including over the counter drugs, herbal medications, vitamins and or supplements as they may interact with your home medications. What How Much When Why Instructions Last Dose New cephalexin (cephalexin 500 mg oral tablet) 1 tab(s) by mouth Four (4) times a day Pyelonephritis Duration: 10 Days Printed Prescription Unchanged etonogestrel (Nexplanon 68 mg subcutaneous implant) Subcutaneous Once Unchanged FLUoxetine (FLUoxetine (Eqv-Prozac) 20 mg oral tablet) 1 tab(s) by mouth Once a day Please take this list to your next doctor s visit. Bring all medications you take, including over the counter medications, herbals and other supplements with you to your doctor s visit. Patients and families are reminded to discard old lists and to update any records with all medication providers or retail pharmacies. Medication Leaflets cephalexin (sef a DALE in) Keflex What is the most important information I should know about cephalexin? You should not use this medicine if you are allergic to cephalexin or to similar antibiotics, such as Ceftin, Cefzil, Omnicef, and others. Tell your doctor if you are allergic to any drugs, especially penicillins or other antibiotics. What is cephalexin? Cephalexin is a cephalosporin (SEF a low spor in) antibiotic that is used to treat bacterial infections of the lungs, ear, skin, bones, bladder, and kidneys. Cephalexin is used to treat infections in adults and children who are at least 1 year old. Cephalexin may also be used for purposes not listed in this medication guide. What should I discuss with my healthcare provider before taking cephalexin? You should not use this medicine if you are allergic to cephalexin or any other cephalosporin antibiotic (cefdinir, cefadroxil, cefoxitin, cefprozil, ceftriaxone, cefuroxime, Omnicef, and others). Tell your doctor if you have ever had: an allergy to any drug (especially penicillin); liver or kidney disease; or intestinal problems, such as colitis. The liquid form of cephalexin may contain sugar. This may affect you if you have diabetes. Tell your doctor if you are or breast-feeding. How should I take cephalexin? Follow all directions on your prescription label and read all medication guides or instruction sheets. Use the medicine exactly as directed. Do not use cephalexin to treat any condition that has not been checked by your doctor. Measure liquid medicine carefully. Use the dosing syringe provided, or use a medicine dose-measuring device (not a kitchen spoon). Use this medicine for the full prescribed length of time, even if your symptoms quickly improve. Skipping doses can increase your risk of infection that is resistant to medication. Cephalexin will not treat a viral infection such as the flu or a common cold. Do not share cephalexin with another person, even if they have the same symptoms you have. This medicine can affect the results of certain medical tests. Tell any doctor who treats you that you are using cephalexin. Store the tablets and capsules at room temperature away from moisture, heat, and light. Store the liquid medicine in the refrigerator. Throw away any unused liquid after 14 days. What happens if I miss a dose? Take the medicine as soon as you can, but skip the missed dose if it is almost time for your next dose. Do not take two doses at one time. What happens if I overdose? Seek emergency medical attention or call the Poison Help line at . Overdose symptoms may include nausea, vomiting, stomach pain, diarrhea, and blood in your urine. What should I avoid while taking cephalexin? Antibiotic medicines can cause diarrhea, which may be a sign of a new infection. If you have diarrhea that is watery or bloody, call your doctor before using anti-diarrhea medicine. What are the possible side effects of cephalexin? Get emergency medical help if you have signs of an allergic reaction (hives, difficult breathing, swelling in your face or throat) or a severe skin reaction (fever, sore throat, burning eyes, skin pain, red or purple skin rash with blistering and peeling). Call your doctor at once if you have: severe stomach pain, diarrhea that is watery or bloody (even if it occurs months after your last dose); unusual tiredness, feeling light-headed or short of breath; easy bruising, unusual bleeding, purple or red spots under your skin; a seizure; pale skin, cold hands and feet; yellowed skin, dark colored urine; fever, weakness; or pain in your side or lower back, painful urination. Common side effects may include: diarrhea; nausea, vomiting; indigestion, stomach pain; or vaginal itching or discharge. This is not a complete list of side effects and others may occur. Call your doctor for medical advice about side effects. You may report side effects to FDA at 5-931-YVZ-1976. What other drugs will affect cephalexin? Tell your doctor about all your other medicines, especially: metformin; or probenecid. This list is not complete. Other drugs may affect cephalexin, including prescription and scse-our-rhndtbb medicines, vitamins, and herbal products. Not all possible drug interactions are listed here. Where can I get more information? Your pharmacist can provide more information about cephalexin. Remember, keep this and all other medicines out of the reach of children, never share your medicines with others, and use this medication only for the indication prescribed. Every effort has been made to ensure that the information provided by [employer]') is accurate, up-to-date, and complete, but no guarantee is made to that effect. Drug information contained herein may be time sensitive. [employer] information has been compiled for use by healthcare practitioners and consumers in the [place] and therefore [employer] does not warrant that uses outside of the [place] are appropriate, unless specifically indicated otherwise. [employer] drug information does not endorse drugs, diagnose patients or recommend therapy. [employer] drug information is an informational resource designed to assist licensed healthcare practitioners in caring for their patients and/or to serve consumers viewing this service as a supplement to, and not a substitute for, the expertise, skill, knowledge and judgment of healthcare practitioners. The absence of a warning for a given drug or drug combination in no way should be construed to indicate that the drug or drug combination is safe, effective or appropriate for any given patient. [employer] does not assume any responsibility for any aspect of healthcare administered with the aid of information [employer] provides. The information contained herein is not intended to cover all possible uses, directions, precautions, warnings, drug interactions, allergic reactions, or adverse effects. If you have questions about the drugs you are taking, check with your doctor, nurse or pharmacist. Copyright 7315-5320 [employer]. Version: 10.03. Revision Date: 11/30/2020. Education Materials Kidney Infection (Adult Female) An infection in one or both kidneys is called pyelonephritis. It usually happens when bacteria (or rarely, viruses, fungi, or other disease-causing organisms) get into the kidney. The bacteria (or other disease-causing organisms) can enter the kidneys from the bladder or blood traveling from other parts of the body. A kidney infection can become serious. It can cause severe illness, scarring of the kidneys, or kidney failure if not treated properly. Common causes for this problem include: Not keeping the genital area clean and dry, which promotes the growth of bacteria Wiping back to front which drags bacteria from the rectum toward the urinary opening (urethra) Wearing tight pants or underwear (this lets moisture build up in the genital area, which helps bacteria grow) Holding urine in for long periods of time Dehydration Kidney infections can cause symptoms similar to a bladder infection. Symptoms include: Pain (or burning) when urinating Having to urinate more often than usual Blood in the urine (pink or red) Abdominal pain or discomfort, usually in the lower abdomen Pain in the side or back Pain above the pubic bone Fever or chills Vomiting Loss of appetite Treatment is oral antibiotics, or in more severe cases, intramuscular or IV antibiotics. These are started right away and may be changed once urine culture results determine the infecting organisms. Treatment helps prevent a more serious kidney infection. Medicines Medicines can help in the treatment of a bladder infection: Take antibiotics until they are used up, even if you feel better. It is important to finish them to make sure the infection is gone. Unless another medicine was prescribed, you can use rlqq-hga-lfiydjq medicines for pain, fever, or discomfort. If you have chronic liver of kidney disease, talk with your healthcare provider before using these medicines. Also talk with your provider if you've ever had a stomach ulcer or gastrointestinal (GI) bleeding, or are taking blood thinners. Home care The following are general care guidelines: Stay home from work or school. Rest in bed until your fever breaks and you are feeling better, or as advised by your healthcare provider. Drink lots of fluid unless you must restrict fluids for other medical reasons. This will force the medicine into your urinary system and flush the bacteria out of your body. Ask your healthcare provider how much you should drink. Don't have sex until you have finished all of your medicine and your symptoms are gone. Don't have caffeine, alcohol, or spicy foods. These foods may irritate the kidneys and bladder. Don't take bubble baths. Sensitivity to the chemicals in bubble baths can irritate the urethra. Make sure you wipe from front to back after using the toilet. Wear loose cloths and cotton underwear. Prevention These self-care steps can help prevent future infections: Drink plenty of fluids to prevent dehydration and flush out the bladder. Do this unless you must restrict fluids for other health reasons, or your healthcare provider told you not to. Proper cleaning after going to the bathroom in important. Make sure you wipe from front to back after using the toilet. Urinate more often. Don't try to hold urine in for a long time. Don't wear tight-fitting pants and underwear. Improve your diet to prevent constipation. Eat more fruits, vegetables, and fiber. Eat less junk and fatty foods. Constipation can make a urinary tract infection more likely. Talk with your healthcare provider if you have trouble with bowel movements. Urinate right after intercourse to flush out the bladder. Follow-up care Follow up with your healthcare provider, or as advised. Additional testing may be needed to make sure the infection has cleared. Close follow-up and further testing is very important to find the cause and to prevent future infections. If a urine culture was done, you will be contacted if your treatment needs to be changed. If directed, you may call to find out the results. If you had an X-ray, CT scan, or other diagnostic test, you will be notified of any new findings that may affect your care. Call 911 Call 911 if any of the following occur: Trouble breathing Fainting or loss of consciousness Rapid or very slow heart rate Weakness, dizziness, or fainting Difficulty arousing or confusion When to seek medical advice Call your healthcare provider right away if any of these occur: Fever 100.4 F (38 C) or higher, or as directed by your healthcare provider Not feeling better within 1 to 2 days after starting antibiotics Any symptom that continues after 3 days of treatment Increasing pain in the stomach, back, side, or groin area Repeated vomiting Not able to take prescribed medicine due to nausea or another reason Bloody, dark-colored, or foul smelling urine Trouble urinating or decreased urine output No urine for 8 hours, no tears when crying, sunken eyes, or dry mouth [phone] [employer] [address] [place] [address]. All rights reserved. This information is not intended as a substitute for professional medical care. Always follow your healthcare professional's instructions. Additional Information VACCINATE! IT SAVES LIVES! Members of the community who have not yet received the COVID-19 vaccine and would like to receive it can visit one of [facility] vaccine clinics. There are many vaccine clinic locations within the [facility]. For locations and available times, please visit www.[email or web address].[place] .gov/. It is important to note that some COVID mobile vaccine clinics are held outdoors and may be canceled in rainy or stormy conditions. To learn more about pediatric vaccinations (ages 5-11), we invite you to visit the [facility] webpage. https://www.[email or web address].org/ pages/2996-Pyzbg-Dyabiosjwej-Fr mwpuzeyx-Fraqg-Aqmxwnvfe.html To learn more about the COVID-19 vaccine, we invite you to visit the CDC website for a list of frequently asked questions. https://www.cdc.gov/coronavirus /2019-ncov/vaccines/faq.html [facility]me Patient Portal Access Instructions: Stay connected with your healthcare team and access your personal medical information anytime with the [facility] Patient Portal. If you would like a full copy of your medical records please contact the [facility] Medical Records Department Monday through Monday between 8a.m. and 4:30p.m. Please follow the directions below to access the portal: 1.Access the email account you provided upon registration to the hospital.2.Look for an invitation email from [facility].3.Open the email and access the invitation link: Accept Invitation to [facility]4.Fill in the required mccain to create your account. Sign into [email or web address] with your username and password that you created in the above steps to stay up to date. You can then view a summary of results, a summary of your visits, and the ability to download your summaries to your computer or send the information securely to a physician. Remember that your healthcare information is confidential, so carefully consider who you will allow to register on the [facility] Patient Portal for access to your information. You can also access the [facility] Patient Portal on the [employer]. Simply click on Health Records under Health Data and then click on the [employer] logo. HOW TO SAFELY DISPOSE OF PRESCRIPTION MEDICATIONS Please use one of the following methods to safely dispose of your unused medications. 1.Use a drug disposal kit: the drug disposal pouch allows you to safely discard your old and unused drugs. Ask your nurse to give you one when you are discharged.2.Visit a local take-back location: Many local pharmacies and police departments have programs that collect old and unwanted prescription drugs. Call your local pharmacy or go to http://Typeform.[employer]/3I8Br7j to find one close to you.3.Make use of household items: Use cat litter or old coffee grounds to dispose medications if other options are not available. Mix your drugs with these household products, seal them in an airtight container and throw it into the garbage. Call [facility]: [phone] to be sure your drugs can be disposed of in this way. Some medicines may require a different approach.4.Never flush your medications down the toilet. IF YOU HAVE BEEN PRESCRIBED AN OPIOIDS FOR PAIN If you have been prescribed an opioid (such as hydrocodone, oxycodone or morphine), it is critical to understand the possible side effects and risks of opioid pain medications. Even when taken as directed, opioids can have several side effects including: Tolerance, meaning you might need to take more of a medication for the same pain relief. Nausea, vomiting and/or constipation. Sleepiness, dizziness, dry mouth, confusion, depression or itching. Physical dependence, meaning you have withdrawal symptoms when a medication is stopped ? this can develop within a few days. KNOW YOUR RESPONSIBILITIES It is important to know exactly how much and how often to take the opioid pain medications you are prescribed. Never take opioids in higher amounts or more often than prescribed. Do not combine opioids with alcohol or other drugs that cause drowsiness, such as benzodiazepines, also known as benzos, including diazepam and alprazolam, muscle relaxants or sleep aids. Never sell or share prescription opioids. This is illegal. Store opioids in a secure place and out of reach of others (including children, family, friends and visitors). The last page(s) of this document has been signed and retained as a CHART COPY Signatures Patient Education Materials Pyelonephritis, Female (Adult) Medication Leaflets cephalexin My discharge plan and instructions have been reviewed and explained to me and I,PIETER MCKEON understand my current condition and have read and understand these discharge instructions. I have received a written copy of the plan/instructions. If I have questions, I am aware that I should contact my doctor. 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 We will contact patient with results tomorrow if she is see her possible due date and gestational age in H&P [facility] 04-10-2023 Miscellaneous Notes Associated Problem(s): Amenorrhea We will get quantitative hCG. We will contact patient with results tomorrow if she is see her possible due date and gestational age in H&P documented in this encounter [facility] 04-10-2023 History of Presen t illness Narrative Patient verified by last name and date of . Patient wants a skiff operator in the room during during the visit. 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 04/10/2023 Pieter Mckeon (: 2000) is a 22 y.o. female , Established patient, here for evaluation of the following chief complaint(s): Amenorrhea (Missed period last month and since then have not felt well //Took home preg test x4 all were positive ) ASSESSMENT/PLAN: 1. Amenorrhea Assessment & Plan: We will get quantitative hCG. We will contact patient with results tomorrow if she is see her possible due date and gestational age in H&P No follow-ups on file. SUBJECTIVE/OBJECTIVE: MARLON Leone comes in today stating that she has missed a couple of. She was post to start 1 at the beginning of February and then at the beginning of March so she believes her last menstrual period would have been right around 25 January. She has done 4 home test but she says she still feels like she is in denial and she would like to have a blood test to confirm. This would give a due date of November 01, 2023 with a gestational age of around 10 weeks 5 days. Review of Systems Constitutional: Negative for fatigue. Genitourinary: Positive for menstrual problem. Negative for dysuria, frequency and urgency. Vitals: 04/10/23 1401 BP: 112/75 Pulse: (!) 123 Weight: 184 lb 6.4 oz (83.6 kg) Height: 5' 4.75 (1.645 m) Physical Exam Vitals and nursing note reviewed. Constitutional: General: She is not in acute distress. Appearance: Normal appearance. She is obese. Cardiovascular: Rate and Rhythm: Normal rate and regular rhythm. Heart sounds: Normal heart sounds. No murmur heard. Pulmonary: Effort: Pulmonary effort is normal. Breath sounds: Normal breath sounds. Abdominal: General: Abdomen is flat. Bowel sounds are normal. Palpations: Abdomen is soft. Tenderness: There is no abdominal tenderness. Neurological: Mental Status: She is alert. An electronic signature was used to authenticate this note. Evelyn Ham MD 04/10/2023 2:42 PM documented in this encounter [facility] 05-13-2022 Miscellaneous Notes This MEDICAL FRONT DESK SPECIALIST called patient and identified with name and . Your covid test is positive. Follow the CDC guidelines for isolation: 1. Everyone, regardless of vaccination status, should stay home for 5 days. 2. If you have no symptoms or your symptoms are resolving after 5 days, you can leave your house. 3. Continue to wear a mask around others for 5 additional days. If you have a fever, continue to stay home until your fever resolves, even if it is longer than 5 days. Please monitor your symptoms, and for any worrisome symptoms. Continue comfort measures for symptoms as you would for a cold. Any worsening symptoms follow up with PCP or ER. All questions answered, letter sent via [employer] for work. Virginia Gonzalez APRN.SANDEEP documented in this encounter [facility] 05-12-2022 Instructions Vriginia Gonzalez APRN.CNP - 05/12/2022 10:16 AM EDT covid test ordered You will be notified in 24 -48 hours, results available on [facility] Home isolation until covid results are back Rest, increase water intake Motrin or Tylenol as needed for fever or pain. Salt water gargles, chloraseptic spray or lozenges as needed for sore throat. Warm beverages, honey. Nasal saline spray as needed Cool mist humidifier at night Tylenol (generic acetaminophen) 500 mg-2 tabs every 8 hrs. as needed for fever and aches Ibuprofen 600 mg (3-200mg tablets) every 6 hours -Sudafed (generic is fine), behind the counter, 2x30 mg tabs twice daily as needed for congestion -Mucinex (generic is fine) Guaifenesin 1200 mg twice daily to help with cough and to thin out mucus * Seek medical care immediately, call 911, go to ER if you have chest pain, difficulty breathing, shortness of breath, inability to swallow. documented in this encounter [facility] 05-12-2022 History of Presen t illness Narrative Subjective The history is provided by the patient. No languages and literature instructor was used. HPI Pieter Mckeon is a 21 year old female who presents today for CC of sore throat, fever and headache that started 4 days ago. She has also had a cough and vomiting x 1. She has used mucinex without relief. She denies any rhinorrhea, nasal congestion, nausea, or diarrhea. She denies any known exposure, family member with similar symptoms. She works at [employer] BP 124/68 Pulse 109 Temp 36.5 C (97.7 F) Resp 22 Wt 86.7 kg (191 lb 3.2 oz) LMP 04/27/2022 SpO2 98% Social History Tobacco Use Smoking status: Never Smoker Smokeless tobacco: Never Used Substance Use Topics Alcohol use: Never Drug use: Never No past medical history on file. I have confirmed and edited as necessary, the [facility] Review of Systems Constitutional: Positive for fever. Negative for chills and malaise/fatigue. HENT: Positive for congestion and sore throat. Negative for ear pain and sinus pain. Respiratory: Positive for cough. Negative for sputum production, shortness of breath and wheezing. Cardiovascular: Negative for chest pain. Gastrointestinal: Positive for vomiting. Negative for abdominal pain, diarrhea and nausea. Musculoskeletal: Negative for myalgias. Neurological: Positive for headaches. Objective Physical Exam Vitals and nursing note reviewed. HENT: Head: Normocephalic and atraumatic. Right Ear: Tympanic membrane, ear canal and external ear normal. Left Ear: Tympanic membrane, ear canal and external ear normal. Nose: Mucosal edema present. No congestion or rhinorrhea. Mouth/Throat: Pharynx: Uvula midline. Posterior oropharyngeal erythema (mild) present. No oropharyngeal exudate. Cardiovascular: Rate and Rhythm: Normal rate and regular rhythm. Heart sounds: Normal heart sounds. Pulmonary: Effort: Pulmonary effort is normal. Breath sounds: Normal breath sounds. Lymphadenopathy: Head: Right side of head: No submental, submandibular or tonsillar adenopathy. Left side of head: No submental, submandibular or tonsillar adenopathy. Cervical: No cervical adenopathy. Skin: General: Skin is warm and dry. Neurological: Mental Status: She is alert. Psychiatric: Mood and Affect: Affect normal. ASSESSMENT/PLAN: 1. Cough - ICD9: 786.2, ICD10: R05.9 (primary diagnosis) [place] [facility] prn cough - COVID WITH FLUA+B, ROUTINE 2. Sore throat - ICD9: 462, ICD10: J02.9 - suspect viral - Alere Strep Test negative, no culture pending - The patient may also use warm salt water gargles, throat lozenges and/or OTC throat spray as needed. - STREP A MOLECULAR (POC) - COVID WITH FLUA+B, ROUTINE 3. Fever, unspecified fever cause - ICD9: 780.60, ICD10: R50.9 Tylenol/ibuprofen prn - STREP A MOLECULAR (POC) - COVID WITH FLUA+B, ROUTINE 4. Suspected COVID-19 virus infection - ICD9: V01.79, ICD10: Z20.822 Home isolation Testing ordered Comfort measures discussed - see patient instructions. When to seek higher level of care Notified in 24-48 hours with results, available on mychart - COVID WITH FLUA+B, ROUTINE Diagnosis and treatment plan were discussed and questions were answered to the patient's satisfaction. Pt acknowledged understanding of concepts and follow up plan. Specific signs and symptoms that would indicate the need for higher level of care were discussed in detail warranting prompt ER evaluation. Virginia Gonzalez APRN.CNP documented in this encounter [facility] Diagnosis Amenorrhea- Primary Absence of menstruation [facility] Diagnosis Annual physical exam- Primary Routine general medical examination at a health care facility Mixed hyperlipidemia Screening for diabetes mellitus [facility] Diagnosis Thrush- Primary Candidiasis of mouth [facility] N[facility] No data available for this section [facility] Discharge instructions No data available for this section [facility] Progress note No data available for this section [facility] Health Concerns Infection Onset Date Last Indicated Resolved Time COVID-19 Rule-Out 05/12/2022 05/12/2022 Infection Onset Date Last Indicated Resolved Time COVID-19 Confirmed 05/12/2022 05/12/2022 Summary Purpose Family History No Family History Records Found Advance Directives No Advanced Directives Records FoundNo Advanced Directives Records FoundNo Advanced Directives Records Found Additional Source Comments Source Comments (unrecognize d section and content) In the event this informatio n is protected by the Federal Confidentiality of Alcohol and Drug Abuse Patient Records regulations: The Federal rules restrict any use of the information to criminally investigate or prosecute any alcohol or drug abuse patient.[facility] the event this information is protected by the Federal Confidentiality of Alcohol and Drug Abuse Patient Records regulations: The Federal rules restrict any use of the information to criminally investigate or prosecute any alcohol or drug abuse patient.[facility] the event this information is protected by the Federal Confidentiality of Alcohol and Drug Abuse Patient Records regulations: The Federal rules restrict any use of the information to criminally investigate or prosecute any alcohol or drug abuse patient.[facility] Reason for Visit (unrecogniz ed section and content) Reason Comments Results covid Reason Comments Amenorrhea Missed period last m onth and since then have not felt well Took home preg test x4 all were positive Reason Comments Annual Exam Health Maintenance Hep c and hiv screen ing- refuseCovid vaccine- not doneHpv vaccine- not right now Reason Comments thrush Was on 2 antibiotics and was given fluids in the er, Reason Onset Date Comments no contact 09/19/2023 Care Teams (unrecognized sec tion and content) Cleaning Technician Relationship Specialty Start Date End Date Evelyn Ham [address] [place] [address] PCP - General Family Practice 05/12/22 Cleaning Technician Relationship Specialty Start Date End Date Evelyn Ham [facility] [address] [facility] [place] [id number] PCP - General 09/12/21 Cleaning Technician Relationship Specialty Start Date End Date Evelyn Ham MD [address] [place] [id number] PCP - General 09/12/21 Cleaning Technician Relationship Specialty Start Date End Date Evelyn Ham PCP - General Family Medicine 05/12/22 Cleaning Technician Relationship Specialty Start Date End Date Evelyn Ham MD [address] [place], [place] [address] [address] PCP - General 09/12/21 INFORMATION SOURCE (unrecogn ized section and content) DATE CREATED AUTHOR AUTHOR'S ORGANIZ ATION 08/12/2023 [facility] DATE CREATED AUTHOR AUTHOR'S ORGANIZ ATION 09/21/2023 [facility] FOR RECORDS PERTAINING TO PATIENTS WHO ARE OR HAVE BEEN ENROLLED IN A CHEMICAL DEPENDENCY/SUBSTANCEABUSE PROGRAM, SOME INFORMATION MAY BE OMITTED. This clinical summary was aggregated from multiple sources. Caution should be exercised in using it in the provision of clinical care. This summary normalizes information from multiple sources, and as a consequence, information in this document may materially change the coding, format and clinical context of patient data. In addition, data may be omitted in some cases. CLINICAL DECISIONS SHOULD BE BASED ON THE PRIMARY CLINICAL RECORDS. [facility] [employer] [facility]. provides no warranty or guarantee of the accuracy or completeness of information in this document.
--- OUTSIDE RECORDS SUMMARY | 2023-11-22 17:13 | XMS RPT_ITS | CCD ---
Author Name Unknown Address [address] [place] [address] Organization [facility] Care Team Providers Care Orderly Name Role Phone Evelyn Ham Primary Care Provider NORMA ROLL CAPPER-PANTOGRAPH I ENGRAVER, [facility] Primary Care Physicia n Evelyn Ham MD Primary Care Provider PROVIDER, UNKNOWN Attending Unavailable NORMA ROLL CAPPER-PANTOGRAPH I ENGRAVER, [facility] Primary Care Unava ilable LYNETTE ROLL CAPPER-CNM, [place] Attending Unavai tate GREEN ROLL CAPPER-PANTOGRAPH I ENGRAVER, [facility] Primary Care Unava ilable LYNETTE ROLL CAPPER-CNM, GARRETT [place] Attending Unavai tate GREEN ROLL CAPPER-PANTOGRAPH I ENGRAVER, [facility] Primary Care Unava ilable EDY MAYES, SANDRA Bey Attending Unavailable NORMA ROLL CAPPER-PANTOGRAPH I ENGRAVER, [facility] Primary Care Unava ilable KIMMY ROLL CAPPER-PANTOGRAPH I ENGRAVER, KWAME Attending Unava ilable NORMA ROLL CAPPER-PANTOGRAPH I ENGRAVER, [facility] Primary Care Unava ilable Evelyn Ham Primary Care Provider EVELYN HAM Primary Care Unavailabl e EVELYN HAM Attending Unavailable EVELYN HAM Primary Care Unavailable EVELYN HAM Attending Unavailable EVELYN HAM Primary Care Unavailable Allergies Allergy Classification Reported Allergen(s) Allergy Type Date of Onset Reaction(s) Facility (4 sources) Latex; Translations: [LATEX] Drug Allergy 09-13-2021 [facility] (3 sources) Penicillins; Translations: [PENICILLINS] Drug Allergy 09-13-2021 Swelling [facility] (3 sources) Latex Allergy to substance 09-13-2021 Hives [facility] (3 sources) Penicillins Drug Allergy 09-13-2021 Swelling [facility] (1 source) Penicillins Drug Allergy 09-13-2021 Swelling [facility] Medications Current Medications Medication Drug Class(es) Dates [...] qDay, # 90 tab(s), 0 Refill(s), Pharmacy: [facility]/pharmacy #[id number], 162.5, cm, 02/23/21 15:23:00 EDT, Height, kg, 02/23/21 15:23:00 EDT, Dosing Weight Start Date: 06/10/22 Status: Ordered nystatin 199361 unt/ml oral suspension (1 source) Polyene Antifungal [...] 08-10-2023 17:50-0400 Body weight 100.65 kg [facility] 08-10-2023 17:50-0400 Diastolic blood pressure 69 mm[Hg] [facility] 08-10-2023 17:50-0400 Heart rate 115 /min [facility] 08-10-2023 17:50-0400 SaO2% (BldA) [Mass fraction] 100 % [facility] 08-10-2023 17:50-0400 Systolic blood pressure 122 mm[Hg] [facility] 07-18-2023 13:17-0400 Body height 164.5 cm Evelyn Ham MD Work Phone: [facility] 07-18-2023 13:17-0400 Body mass index (BMI) [Ratio] 34.75 kg/m2 Evelyn Ham MD Work Phone: [facility] 07-18-2023 13:17-0400 Body weight 93.98 kg Evelyn Ham MD Work Phone: [facility] 07-18-2023 13:17-0400 Diastolic blood pressure 78 mm[Hg] Evelyn Ham MD Work Phone: [facility] 07-18-2023 13:17-0400 Heart rate 112 /min Evelyn Ham MD Work Phone: [facility] 07-18-2023 13:17-0400 SaO2% (BldA) [Mass fraction] 98 % Evelyn Ham MD Work Phone: [facility] 07-18-2023 13:17-0400 Systolic blood pressure 122 mm[Hg] Evelyn Ham MD Work Phone: [facility] 06-02-2023 08:49-0400 Diastolic Blood Pressure Non-Invasive 75 1 SANDRA SNOW MD [facility] 06-02-2023 08:49-0400 Heart rate 93 /min SANDRA SNOW MD [facility] 06-02-2023 08:49-0400 Respiratory rate 16 /min SANDRA SNOW MD [facility] 06-02-2023 08:49-0400 Systolic Blood Pressure Non-Invasive 108 1 SANDRA SNOW MD [facility] 06-02-2023 07:19-0400 Body temperature 98.24 [degF] SANDRA SNOW MD [facility] 06-02-2023 07:19-0400 Diastolic Blood Pressure Non-Invasive 84 1 SANDRA SNOW MD [facility] 06-02-2023 07:19-0400 Heart rate 101 /min SANDRA SNOW MD [facility] 06-02-2023 07:19-0400 Respiratory rate 20 /min SANDRA SNOW MD [facility] 06-02-2023 07:19-0400 Systolic Blood Pressure Non-Invasive 122 1 SANDRA SNOW MD [facility] 04-10-2023 14:01-0400 Body height 164.5 cm Evelyn Ham MD Work Phone: [facility] 04-10-2023 14:01-0400 Body mass index (BMI) [Ratio] 30.92 kg/m2 Evelyn Ham MD Work Phone: [facility] 04-10-2023 14:01-0400 Body weight 83.64 kg Evelyn Ham MD Work Phone: [facility] 04-10-2023 14:01-0400 Diastolic blood pressure 75 mm[Hg] Evelyn Ham MD Work Phone: [facility] 04-10-2023 14:01-0400 Heart rate 123 /min Evelyn Ham MD Work Phone: [facility] 04-10-2023 14:01-0400 Systolic blood pressure 112 mm[Hg] Evelyn Ham MD Work Phone: [facility] 05-12-2022 09:49-0400 Body temperature 97.7 [degF] Virginia Gonzalez APRN.PANTOGRAPH I ENGRAVER Work Phone: [facility] 05-12-2022 09:49-0400 Body weight 86.73 kg Virginia Gonzalez APRN.SANDEEP Work Phone: [facility] 05-12-2022 09:49-0400 Diastolic blood pressure 68 mm[Hg] Virginia Gonzalez APRN.PANTOGRAPH I ENGRAVER Work Phone: [facility] 05-12-2022 09:49-0400 Heart rate 109 /min Virginia Gonzalez APRN.PANTOGRAPH I ENGRAVER Work Phone: [facility] 05-12-2022 09:49-0400 Respiratory rate 22 /min Virginia Gonzalez APRN.PANTOGRAPH I ENGRAVER Work Phone: [facility] 05-12-2022 09:49-0400 SaO2% (BldA) [Mass fraction] 98 % Virginia Gonzalez APRN.SANDEEP Work Phone: [facility] 05-12-2022 09:49-0400 Systolic blood pressure 124 mm[Hg] Virginia Gonzalez APRN.PANTOGRAPH I ENGRAVER Work Phone: [facility] Encounters Encounter Date Encounter Type Care Provider Facility Start: 09-19-2023 ambulatory Shagufta Garcia RN [facility] Clinical Communication Start: 09-19-2023 Patient encounter procedure Shagufta Garcia RN [facility] Clinical Communication Start: 08-10-2023 End: 08-10-2023 ambulatory EVELYN HAM Facility:[facility] Start: 08-10-2023 End: 08-10-2023 Patient encounter procedure Walk [facility] Procedures Date Procedure Procedure Detail Performing Clinician Start: 05-12-2022 STREP A MOLECULAR (POC) Virginia Gonzalez APRN.CNP Work Phone: Plan of Treatment Date Care Activity Detail Author Start: 2052 Zoster Vaccines (1 of 2) Zoster Vaccines (1 of 2) [facility] Start: 07-03-2025 DTaP/Tdap/Td Vaccines (7 - Td or Tdap) DTaP/Tdap/Td Vaccines (7 - Td or Tdap) [facility] Start: 07-23-2024 End: 07-23-2024 Patient encounter procedure 07/23/2024 8:15 AM EDT Office Visit [facility] [address] [place] [address] Evelyn Ham MD [address] [place], [place] [address] [address] [facility] Start: 01-17-2024 Depresssion Monitoring Depresssion Monitoring [facility] Start: 07-28-2023 Influenza vaccination Influenza Vaccine (#1) [facility] Start: 07-18-2023 End: 07-18-2024 Comprehensive metabolic 1998 panel - Serum or Plasma Comprehensive metabolic panel Lab Routine Screening for diabetes mellitus Expected: 07/18/2023 (Approximate), Expires: 07/18/2024 [facility] Immunizations Immunization Date Immunization Notes Care Provider Fa cility 09-13-2022 influenza, injectabl e, quadrivalent, preservative free Evelyn Ham MD Work Phone: [facility] 09-13-2022 Pneumococcal Conjuga te PCV20, Pf (Prevnar 20) Evelyn Ham MD Work Phone: [facility] 09-13-2022 influenza virus vacc ine, unspecified formulation Evelyn Ham MD Work Phone: [facility] 03-29-2022 Human Papillomavirus 9-valent vaccine Evelyn Ham MD Work Phone: [facility] 03-29-2022 HPV, unspecified formulation Evelyn Ham MD Work Phone: [facility] 07-03-2015 tetanus toxoid, redu lion diphtheria toxoid, and acellular pertussis vaccine, adsorbed Evelyn Ham MD Work Phone: [facility] 12-10-2008 diphtheria, tetanus toxoids and acellular pertussis vaccine Evelyn Ham MD Work Phone: [facility] 12-10-2008 measles, mumps, rube lla, and varicella virus vaccine Evelyn Ham MD Work Phone: [facility] 12-10-2008 poliovirus vaccine, inactivated Evelyn Ham MD Work Phone: [facility] 12-31-2003 diphtheria, tetanus toxoids and acellular pertussis vaccine Evelyn Ham MD Work Phone: [facility] 12-31-2003 haemophilus influenz ae type b vaccine, PRP-T conjugate Evelyn Ham MD Work Phone: [facility] 12-31-2003 measles, mumps, rube lla, and varicella virus vaccine Evelyn Ham MD Work Phone: [facility] 06-23-2003 diphtheria, tetanus toxoids and acellular pertussis vaccine Evelyn Ham MD Work Phone: [facility] 06-23-2003 haemophilus influenz ae type b vaccine, PRP-T conjugate Evelyn Ham MD Work Phone: [facility] 06-23-2003 hepatitis B vaccine, pediatric or pediatric/adolescent dosage Evelyn Ham MD Work Phone: [facility] 06-23-2003 poliovirus vaccine, inactivated Evelyn Ham MD Work Phone: [facility] 03-19-2003 diphtheria, tetanus toxoids and acellular pertussis vaccine Evelyn Ham MD Work Phone: [facility] 03-19-2003 haemophilus influenz ae type b vaccine, PRP-T conjugate Evelyn Ham MD Work Phone: [facility] 03-19-2003 hepatitis B vaccine, pediatric or pediatric/adolescent dosage Evelyn Ham MD Work Phone: [facility] 03-19-2003 poliovirus vaccine, inactivated Evelyn Ham MD Work Phone: [facility] 2002 diphtheria, tetanus toxoids and acellular pertussis vaccine Evelyn Ham MD Work Phone: [facility] 2002 poliovirus vaccine, inactivated Evelyn Ham MD Work Phone: [facility] 2002 hepatitis B vaccine, pediatric or pediatric/adolescent dosage Evelyn Ham MD Work Phone: [facility] Payers Date Payer Category Payer Private Health [facility] [id number] 2021-Present [phone] [address] [address] [place] [address] HMO [id number] 2016 Private Health Insurance [id number] 2016 Unknown [id number] 2002 Unknown [id number] 2002 Unknown [id number] 2002 Unknown [id number] 2002 Unknown [id number] 2002 Unknown [id number] Social History Date Type Detail Facility Start: 05-12-2022 End: 08-10-2023 Tobacco smoking status CAIS Never smoked tobacco [facility] Start: 05-12-2022 End: 08-10-2023 Tobacco use and exposure Smokeless tobacco non-user [facility] Start: 05-12-2022 End: 08-10-2023 Alcohol intake Lifetime non-drinker (finding) [facility] Start: 05-12-2022 History SDOH Alcohol Frequency 1 [facility] Start: 2002 Sex Assigned At Not on file [facility] Start: 05-02-2022 End: 07-18-2023 Exposure to SARS-CoV-2 (event) Not sure [facility] Work Phone: Start: 04-10-2023 End: 07-18-2023 Alcohol intake Ex-drinker (finding) [facility] Sex Assigned At Female [facility] Start: 07-17-2023 End: 07-18-2023 History of Social function [facility] Start: 07-17-2023 End: 07-18-2023 Alcohol Use Disorder Identification Test - Consumption [AUDIT-C] [facility] Frequency of Alcohol Consumption Not on file [facility] (I/We) worried wheth er (my/our) food would run out before (I/we) got money to buy more. Never true [facility] In the past 12 month s, was there a time when you were not able to pay the mortgage or rent on time? No [facility] Functional Status Date Assessment Result Facility 06-02-2023 Functional Status Independent [facility] 06-02-2023 Functional Status Standard Safet y ID band on, Call device within reach, Bed in low position, Wheels locked [facility] Mental Status Date Assessment Result Facility 06-02-2023 Mental Status Orientation Oriented x 4 [facility] 06-02-2023 Mental Status [facility] Clinical Notes 05-12-2022 to 09-19-2023 Telephone [...] Protocols used: No Contact or Duplicate Contact [id number] [facility] 09-19-2023 Miscellaneous Notes S- DOMINIC Rn returning call from patient. R- CAC Rn LVM to call back if still in need of assistance. Reason for Disposition Message left on unidentified voice mail. Phone number verified. Protocols used: No Contact or Duplicate Contact [id number] documented in this encounter [facility] 08-10-2023 Note HNO ID: [id number] Author: Fanny Mendoza APRN.PANTOGRAPH I ENGRAVER Service: ? Author Type: Nurse Practitioner Type: [...] HENT: Head: Normocephalic and atraumatic. Mouth/Throat: Lips: [place]. Mouth: Mucous membranes are moist. Pharynx: Uvula [...] ORAL SUSPENSION Educational material provided Fanny Mendoza APRN.[facility] 08-10-2023 History of Presen t illness [...] HENT: Head: Normocephalic and atraumatic. Mouth/Throat: Lips: [place]. Mouth: Mucous membranes are moist. Pharynx: Uvula [...] Fanny Mendoza APRN.CNP documented in this encounter [facility] 07-18-2023 History of Presen t illness Narrative [...] PM documented in this encounter [facility] 07-18-2023 Evaluation + Plan note Associated Problem(s): Mixed hyperlipidemia Stable, continue low-fat low-cholesterol diet [facility] 07-18-2023 Miscellaneous Notes Associated Problem(s): Mixed hyperlipidemia Stable, continue low-fat low-cholesterol diet documented in this encounter [facility] 06-04-2023 Note . MICRO - [...] Locations *1: This test was performed at: [facility], [address] [place] [address], [id number]- , [facility] [place]) 06-02-2023 Evaluation + Plan note Diagnostic Tests PendingUrine Culture 06/02/23 [facility] 06-02-2023 Hospital Discharg e instructions Patient Education [...] another medicine was prescribed, you can use vhhu-hkd-mehfzix medicines for pain, fever, or discomfort. If [...] when crying, sunken eyes, or dry mouth 0675-7114 Health Benefits [employer]. [address] [place] [address]. All rights reserved. This information is not intended as a substitute for professional medical care. Always follow your healthcare professional's instructions. Follow Up Care 06/02/2023 07:11:40 With:COLBY OCAMPO DO Address: [address] [place] [phone] When:2-4 days With:Go to emergency room if symptoms worsen Address:Unknown When:2-4 days [facility] 06-02-2023 Note Discharge Instructions Thank you for allowing [facility] to assist you with your healthcare needs. The following is important discharge information regarding your hospital visit. Diagnosis from Today's Visit Pyelonephritis Vomiting - What to Do Next Instructions from Your Care Team No qualifying data available. Post Acute Orders No qualifying data available. You Need to Schedule the Following Appointments Follow Up with COLBY OCAMPO DO When Within 2-4 days Where: [address] [place] [phone] Follow Up with Go to emergency room [...] may report side effects to FDA at 2-531-RWH-0274. What other drugs will affect cephalexin? Tell your doctor about all your other medicines, especially: metformin; or probenecid. This list is not complete. Other drugs may affect cephalexin, including prescription and lilb-zrp-fwjqvia medicines, vitamins, and herbal products. Not all [...] to ensure that the information provided by [employer]. ('[employer]') is accurate, up-to-date, and complete, but no guarantee is made to that effect. Drug information contained herein may be time sensitive. [employer] information has been compiled for use by healthcare practitioners and consumers in the [place] and therefore [employer] does not warrant that uses outside of the [place] are appropriate, unless specifically indicated otherwise. [employer] drug information does not endorse drugs, diagnose patients or recommend therapy. [employer] drug information is an informational resource designed [...] effective or appropriate for any given patient. [employer] does not assume any responsibility for any aspect of healthcare administered with the aid of information [employer] provides. The information contained herein is not intended to cover all possible uses, directions, precautions, warnings, drug interactions, allergic reactions, or adverse effects. If you have questions about the drugs you are taking, check with your doctor, nurse or pharmacist. Copyright 5159-4381 [employer]. Version: 10.03. Revision Date: 11/30/2020. Education Materials [...] another medicine was prescribed, you can use naxm-oyc-jipmizv medicines for pain, fever, or discomfort. If [...] when crying, sunken eyes, or dry mouth 4095-2569 [employer]. [address] [place] [address]. All rights reserved. This information is not intended as a substitute for professional medical care. Always follow your healthcare professional's instructions. Additional Information VACCINATE! IT SAVES LIVES! Members of the community who have not yet received the COVID-19 vaccine and would like to receive it can visit one of [facility] vaccine clinics. There are many vaccine clinic locations within the [facility]. For locations and available times, please visit www.gettheshot.coronavirus.[place] .gov/. It is important to note that some COVID mobile vaccine clinics are held outdoors and may be canceled in rainy or stormy conditions. To learn more about pediatric vaccinations (ages 5-11), we invite you to visit the [facility] webpage. https://www.[email or web address] Prestiges.org/ pages/4906-Jhejj-Ttegzwauhnt-Fr jwkfazlq-Jvhan-Zdxigsivs.html To learn more about the COVID-19 vaccine, we invite you to visit the CDC website for a list of frequently asked questions. https://www.cdc.gov/coronavirus /2019-ncov/vaccines/faq.html [facility] [employer] Patient Portal Access Instructions: Stay connected with your healthcare team and access your personal medical information anytime with the [facility] Patient Portal. If you would like a full copy of your medical records please contact the [facility] Medical Records Department Monday through Monday between 8a.m. and 4:30p.m. Please follow the directions below to access the portal: 1.Access the email account you provided upon registration to the hospital.2.Look for an invitation email from [facility].3.Open the email and access the invitation link: Accept Invitation to [facility].Fill in the required mccain to create your account. Sign into www.[employer] with your username and password that you [...] you will allow to register on the [facility] Patient Portal for access to your information. You can also access the [facility] Patient Portal on the [employer]. Simply click on Health Records under Health Data and then click on the [employer] logo. HOW TO SAFELY DISPOSE OF PRESCRIPTION [...] Call your local pharmacy or go to [email or web address] to find one close to you.3.Make use of household items: Use cat litter or old coffee grounds to dispose medications if other options are not available. Mix your drugs with these household products, seal them in an airtight container and throw it into the garbage. Call [facility]: [phone] to be sure your drugs can be [...] aware that I should contact my doctor. Patient/Therapist Radiation Signature: Date/Time: Relationship to Patient: Witness Name/Signature: Date/Time: [facility] 05-03-2023 Evaluation + Plan note Diagnostic Tests PendingVaricella Zoster Antibody 05/03/23Prenatal Panel (AO) 05/03/23 [facility] 04-10-2023 Evaluation + Plan note Associated Problem(s): Amenorrhea We will get quantitative hCG. We will contact patient with results tomorrow if she is see her possible due date and gestational age in H&P [facility] 04-10-2023 Miscellaneous Notes Associated Problem(s): Amenorrhea We will get quantitative hCG. We will contact patient with results tomorrow if she is see her possible due date and gestational age in H&P documented in this encounter [facility] 04-10-2023 History of Presen t illness Narrative Patient verified by last name and date of . Patient wants a hide dropper in the room during during the visit. no [employer] Plasma Etcher na Images from the original note were [...] PM documented in this encounter [facility] 05-13-2022 Miscellaneous Notes This CONSIGNEE called patient and identified with name and [...] ER. All questions answered, letter sent via [employer] for work. Virginia Gonzalez APRN.SANDEEP documented in this encounter [facility] 05-12-2022 Instructions Virginia Gonzalez APRN.CNP - 05/12/2022 10:16 AM EDT covid test ordered You will be notified in 24 -48 hours, results available on [employer] Home isolation until covid results are back [...] inability to swallow. documented in this encounter [facility] 05-12-2022 History of Presen t illness Narrative Subjective The history is provided by the patient. No english as a second language teacher was used. HPI Pieter Mckeon is a [...] member with similar symptoms. She works at [employer] BP 124/68 Pulse 109 Temp 36.5 C (97.7 F) Resp 22 Wt 86.7 kg (191 lb 3.2 oz) LMP 04/27/2022 SpO2 98% Social History Tobacco Use Smoking status: Never Smoker Smokeless tobacco: Never Used Substance Use Topics Alcohol use: Never Drug use: Never No past medical history on file. I have confirmed and edited as necessary, the [facility] Review of Systems Constitutional: Positive for [...] Virginia Gonzalez APRN.CNP documented in this encounter [facility] Diagnosis Amenorrhea- Primary Absence of menstruation [facility] Annual physical exam- Primary Routine general medical examination at a health care facility Mixed hyperlipidemia Screening for diabetes mellitus [facility] Diagnosis Thrush- Primary Candidiasis of mouth [facility] No data available for this section [facility] Hospital Discharge instructions No data available for this section [facility] Progress note No data available for this section [facility] Health Concerns Infection Onset Date Last Indicated [...] or prosecute any alcohol or drug abuse patient.[facility] the event this information is protected by the Federal Confidentiality of Alcohol and Drug Abuse Patient Records regulations: The Federal rules restrict any use of the information to criminally investigate or prosecute any alcohol or drug abuse patient.[facility] HamiltonIn the event this information is protected by the Federal Confidentiality of Alcohol and Drug Abuse Patient Records regulations: The Federal rules restrict any use of the information to criminally investigate or prosecute any alcohol or drug abuse patient.[facility] Reason for Visit (unrecogniz ed section and [...] Care Teams (unrecognized sec tion and content) Orderly Relationship Specialty Start Date End Date Evelyn Ham [address] [place] [address] PCP - General Family Practice 05/12/22 Orderly Relationship Specialty Start Date End Date Evelyn Ham MD [address] [facility] [place] [id number] PCP - General 09/12/21 Orderly Relationship Specialty Start Date End Date Evelyn Ham MD [address] [place] [id number] PCP - General 09/12/21 Orderly Relationship Specialty Start Date End Date Evelyn Ham PCP - General Family Medicine 05/12/22 Orderly Relationship Specialty Start Date End Date Evelyn Ham MD [address] [place], [place] [address] [address] PCP - General 09/12/21 INFORMATION SOURCE (unrecogn ized section and content) DATE CREATED AUTHOR AUTHOR'S ORGANIZ ATION 08/12/2023 [facility] DATE CREATED AUTHOR AUTHOR'S ORGANIZ ATION 09/21/2023 [facility] FOR RECORDS PERTAINING TO PATIENTS WHO ARE [...] BE BASED ON THE PRIMARY CLINICAL RECORDS. [facility] [employer] [facility]. provides no warranty or guarantee of the accuracy or completeness of information in this document.
[2023-11-22 17:50] VITALS: BP 99/52; PULSE 104; RESP 16; TEMP 36.6
[2023-11-22] MEDS: Ferrous Sulfate 325 MG Tablet PO (18:09)
[2023-11-22] MEDS: Sertraline 50 MG Tablet 25 MG PO (20:35)
[2023-11-22 20:47] VITALS: BP 113/53; PULSE 118; RESP 17; TEMP 36.6; O2SAT 97
[2023-11-22] MEDS: Benzocaine/Lanolin/Aloe Vera 1 SPRAY EACH TOPICAL (22:42)
[2023-11-23 01:30] VITALS: BP 109/61; PULSE 108; RESP 15; TEMP 36.4; O2SAT 96
[2023-11-23] MEDS: Ibuprofen 600 MG Tablet PO (03:01)
--- NOTE | 2023-11-23 07:56 | PN.OBGYN_ITS ---
Subjective Subjective Patient doing well without complaints. Tolerating PO. Ambulating and voiding without difficulty. Feeding well. Denies chest pain, shortness of breath, calf pain/swelling, fevers, chills, lightheadedness. Objective Data Objective Data Vital Signs: Vital Signs Temp Pulse Resp BP Pulse Ox O2 Del Method 97.6 F L 108 H 15 109/61 96 Room Air 11/23/23 01:30 11/23/23 01:30 11/23/23 01:30 11/23/23 01:30 11/23/23 01:30 11/23/23 01:30 Oxygen Delivery Method Room Air Weight: 237 lb 1 oz Body Mass Index (BMI) 40.6 Intake & Output: Intake and Output for Last 24 Hours 11/21/23 11/22/23 11/23/23 23:59 23:59 23:59 Intake Total 4848.13 / 4848.13 Output Total 4700 / 4700 Balance 148.13 / 148.13 Lab / Micro Data 11/22/23 12:00 Labs: Laboratory Results - last 24 hr 11/21/23 11:43: POC Glucose 67 L 11/21/23 11:58: POC Glucose 76 11/22/23 12:00: WBC 11.6 H, RBC 2.75 L, Hgb 8.5 L, Hct 25.6 L, MCV 93.1, MCH 3 0.9, MCHC 33.2, RDW Std Deviation 51.2 H, RDW Coeff of [place] 15.2 H, Plt Count 176, MPV 10.7, Immature Gran % (Auto) 0.500, Neut % (Auto) 77.2 H, Lymph % (Auto) 11.5 L, [place] % (Auto) 9.6, Eos % (Auto) 1.0, Baso % (Auto) 0.2, Absolute Neuts (auto) 8.9 H, Absolute Lymphs (auto) 1.33, Nucleated RBC % 0 Micro: Microbiology 11/20/23 13:57 Nasal Secretion SARS-CoV-2 Antigen (Rapid) - Final Physical Exam Const alert and oriented x3 HEENT normocephalic Eyes PERRL Neck full ROM Resp normal respiratory effort GI soft to palpation GI Narrative: FF below U Assessment & Plan (1) Status post vacuum-assisted vaginal delivery: COMMENT: VAVD 11/21/23 pp hemorrhage. JV Boy [place] (2) Anemia: QUALIFIERS: Anemia type: unspecified type Qualified Code(s): D64.9 - Anemia, unspecified (3) Autism spectrum: COMMENT: high functioning-needs additional time and explanation. 40 min appt: reviewed how to check glucose and wrote down instructions. Also taking PNV, Fe and ASA. PLAN: Plan s/p VAVD PPD # 2 1. routine post delivery care 2. breast feeding- support given 3. rh positive 4. rubella immune 5. Rx for home for iron and stool softener sent 6. home today
[2023-11-23 08:53] VITALS: BP 92/53; PULSE 99; RESP 16; TEMP 36.9; O2SAT 97
[2023-11-23] MEDS: Acetaminophen 500 MG Tablet 1000 MG PO (09:15)
[2023-11-23] MEDS: Ferrous Sulfate 325 MG Tablet PO (09:15)
[2023-11-23 12:48] LABS: Pathologist Review Reviewed
== END 2023-11-23 12:30 | disposition home or self-care (01) | DRG 806 ==
LOC: WPPAT 12:11 → WP 12:11
PROVIDERS: Nurse Practitioner Women's Health; Admitting Provider Advanced Practice Midwife; PCP Family Medicine; Referring Provider Obstetrics & Gynecology; Visit Provider Obstetrics & Gynecology
DX: O75.81 Maternal exhaustion complicating labor and delivery (principal); Z37.0 Single live birth; F84.0 Autistic disorder; O24.425 Gestational diabetes mellitus in childbirth, controlled by oral hypoglycemic drugs; B37.31 Acute candidiasis of vulva and vagina; F32.A Depression, unspecified; F41.9 Anxiety disorder, unspecified; O42.913 Preterm premature rupture of membranes, unspecified as to length of time between rupture and onset of labor, third trimester; O72.1 Other immediate postpartum hemorrhage; O26.843 Uterine size-date discrepancy, third trimester; O69.2XX0 Labor and delivery complicated by other cord entanglement, with compression, not applicable or unspecified; O99.344 Other mental disorders complicating childbirth; Z3A.37 37 weeks gestation of pregnancy; Z80.0 Family history of malignant neoplasm of digestive organs; Z79.82 Long term (current) use of aspirin; O77.0 Labor and delivery complicated by meconium in amniotic fluid; O70.1 Second degree perineal laceration during delivery; Z87.440 Personal history of urinary (tract) infections; Z86.16 Personal history of COVID-19; Z67.91 Unspecified blood type, Rh negative
CPT/HCPCS: 59025; 59050; 76815; 82962; 84112; 85025; 86762; 86780; 86803; 86850; 86870; 86900; 86901; 87340; 87811; 99221; J7120; A4216; G0378; J2405

== ENCOUNTER → 2024-01-02 | Outpatient (CLI) | payer OTHER, SELFPAY ==
[2024-01-02 16:09] LABS: Absolute Lymphocyte Count 1.45 X10^3/uL (0.83-4.51); Absolute Neutrophil Count 3.4 X10^3/uL (2.0-7.7); Basophil# 0.02 X10^3/uL; Basophil% 0.3 % (0-1); Eosinophil# 0.15 X10^3/uL; Eosinophils% 2.6 % (0-5); Hematocrit 38.7 % (37-47); Hemoglobin 12.2 g/dL (12.0-15.0); Lymphocyte # 1.45 X10^3/ul (0.83-4.51); Lymphocyte % 25.3 % (19-41); Mean Corp Hgb Conc 31.5 g/dL (32-36); Mean Corpuscular Hgb 27.9 pg (27.0-32.0); Mean Corpuscular Volume 88.4 fL (81-99); Mean Platelet Vol. 9.5 fl (6.2-12.0); Monocyte# 0.68 X10^3/uL; Monocyte% 11.8 % (0-10); NRBC Flagged by Analyzer 0 % (0-5); Neutrophil # 3.41 X10^3/uL (2.7-7.7); Neutrophil % 59.5 % (47-70); Platelet Count 285 K/mm3 (150-450); RBC Distribution Width CV 13.8 % (11.6-14.6); RBC Distribution Width SD 44.7 fl (35.1-43.9); Red Blood Count 4.38 M/mm3 (4.2-5.4); White Blood Count 5.7 K/mm3 (4.4-11.0)
--- OUTSIDE RECORDS SUMMARY | 2024-01-02 19:18 | XMS RPT_ITS | CCD ---
Author Name Unknown Address [address] [place] [address] Organization [facility] Care Team Providers Care Horticulture Supervisor Name Role Phone Evelyn Ham Primary Care Provider NORMA WATCH AND CLOCK REPAIR CLERK-CLINICAL TRIALS SPECIALIST, [facility] Primary Care Physicia n Evelyn Ham MD Primary Care Provider PROVIDER, UNKNOWN Attending Unavailable NORMA WATCH AND CLOCK REPAIR CLERK-CLINICAL TRIALS SPECIALIST, [facility] Primary Care Unava ilable LYNETTE WATCH AND CLOCK REPAIR CLERK-CNM, [place] Attending Unavai tate GREEN WATCH AND CLOCK REPAIR CLERK-CLINICAL TRIALS SPECIALIST, [facility] Primary Care Unava ilable LYNETTE WATCH AND CLOCK REPAIR CLERK-CNM, GARRETT [place] Attending Unavai tate GREEN WATCH AND CLOCK REPAIR CLERK-CLINICAL TRIALS SPECIALIST, [facility] Primary Care Unava ilable EDY MAYES, SANDRA Bey Attending Unavailable NORMA WATCH AND CLOCK REPAIR CLERK-CLINICAL TRIALS SPECIALIST, [facility] Primary Care Unava ilable KIMMY WATCH AND CLOCK REPAIR CLERK-CLINICAL TRIALS SPECIALIST, KWAME Attending Unava ilable NORMA WATCH AND CLOCK REPAIR CLERK-CLINICAL TRIALS SPECIALIST, [facility] Primary Care Unava ilable Evelyn Ham Primary Care Provider EVELYN HAM Primary Care Unavailabl e EVELYN HAM Attending Unavailable EVELYN HAM Primary Care Unavailable EVELYN HAM Attending Unavailable EVELYN HAM Primary Care Unavailable Allergies Allergy Classification Reported Allergen(s) Allergy Type Date of Onset Reaction(s) Facility (4 sources) Latex; Translations: [LATEX] Drug Allergy 09-13-2021 [facility] (3 sources) Penicillins; Translations: [PENICILLINS] Drug Allergy 09-13-2021 Swelling [facility] (3 sources) Latex Allergy to substance 09-13-2021 Hives [facility] (3 sources) Penicillins Drug Allergy 09-13-2021 Swelling [facility] (1 source) Penicillins Drug Allergy 09-13-2021 Swelling [facility] Medications Current Medications Medication Drug Class(es) [...] qDay, # 90 tab(s), 0 Refill(s), Pharmacy: [facility]/pharmacy #[id number], 162.5, cm, 02/23/21 15:23:00 EDT, Height, kg, 02/23/21 15:23:00 EDT, Dosing Weight Start Date: 06/10/22 Status: Ordered nystatin 179214 unt/ml oral suspension (1 source) Polyene Antifungal [...] 08-10-2023 17:50-0400 Body weight 100.65 kg Walk [facility] 08-10-2023 17:50-0400 Diastolic blood pressure 69 mm[Hg] Walk [facility] 08-10-2023 17:50-0400 Heart rate 115 /min Walk [facility] 08-10-2023 17:50-0400 SaO2% (BldA) [Mass fraction] 100 % Walk [facility] 08-10-2023 17:50-0400 Systolic blood pressure 122 mm[Hg] Walk [facility] 07-18-2023 13:17-0400 Body height 164.5 cm Evelyn Ham MD Work Phone: [facility] 07-18-2023 13:17-0400 Body mass index (BMI) [Ratio] 34.75 kg/m2 Evelyn Ham MD Work Phone: [facility] 07-18-2023 13:17-0400 Body weight 93.98 kg Evelyn Ham MD Work Phone: [facility] 07-18-2023 13:17-0400 Diastolic blood pressure 78 mm[Hg] Evelyn Ham MD Work Phone: [facility] 07-18-2023 13:17-0400 Heart rate 112 /min Evelyn Ham MD Work Phone: [facility] 07-18-2023 13:17-0400 SaO2% (BldA) [Mass fraction] 98 % Evelyn Ham MD Work Phone: [facility] 07-18-2023 13:17-0400 Systolic blood pressure 122 mm[Hg] Evelyn Ham MD Work Phone: [facility] 06-02-2023 08:49-0400 Diastolic Blood Pressure Non-Invasive 75 1 SANDRA SNOW MD [facility] 06-02-2023 08:49-0400 Heart rate 93 /min SANDRA SNOW MD [facility] 06-02-2023 08:49-0400 Respiratory rate 16 /min SANDRA SNOW MD [facility] 06-02-2023 08:49-0400 Systolic Blood Pressure Non-Invasive 108 1 SANDRA SNOW MD [facility] 06-02-2023 07:19-0400 Body temperature 98.24 [degF] SANDRA SNOW MD [facility] 06-02-2023 07:19-0400 Diastolic Blood Pressure Non-Invasive 84 1 SANDRA SNOW MD [facility] 06-02-2023 07:19-0400 Heart rate 101 /min SANDRA SNOW MD [facility] 06-02-2023 07:19-0400 Respiratory rate 20 /min SANDRA SNOW MD [facility] 06-02-2023 07:19-0400 Systolic Blood Pressure Non-Invasive 122 1 SANDRA SNOW MD [facility] 04-10-2023 14:01-0400 Body height 164.5 cm Evelyn Ham MD Work Phone: [facility] 04-10-2023 14:01-0400 Body mass index (BMI) [Ratio] 30.92 kg/m2 Evelyn Ham MD Work Phone: [facility] 04-10-2023 14:01-0400 Body weight 83.64 kg Evelyn Ham MD Work Phone: [facility] 04-10-2023 14:01-0400 Diastolic blood pressure 75 mm[Hg] Evelyn Ham MD Work Phone: [facility] 04-10-2023 14:01-0400 Heart rate 123 /min Evelyn Ham MD Work Phone: [facility] 04-10-2023 14:01-0400 Systolic blood pressure 112 mm[Hg] Evelyn Ham MD Work Phone: [facility] 05-12-2022 09:49-0400 Body temperature 97.7 [degF] Virginia Gonzalez APRN.CLINICAL TRIALS SPECIALIST Work Phone: [facility] 05-12-2022 09:49-0400 Body weight 86.73 kg Virginia Gonzalez APRN.SANDEEP Work Phone: [facility] 05-12-2022 09:49-0400 Diastolic blood pressure 68 mm[Hg] Virginia Gonzalez APRN.CLINICAL TRIALS SPECIALIST Work Phone: [facility] 05-12-2022 09:49-0400 Heart rate 109 /min Virginia Gonzalez APRN.CLINICAL TRIALS SPECIALIST Work Phone: [facility] 05-12-2022 09:49-0400 Respiratory rate 22 /min Virginia Gonzalez APRN.CLINICAL TRIALS SPECIALIST Work Phone: [facility] 05-12-2022 09:49-0400 SaO2% (BldA) [Mass fraction] 98 % Virginia Gonzalez APRN.SANDEEP Work Phone: [facility] 05-12-2022 09:49-0400 Systolic blood pressure 124 mm[Hg] Virignia Gonzalez APRN.CLINICAL TRIALS SPECIALIST Work Phone: [facility] Encounters Encounter Date Encounter Type Care Provider Facility Start: 09-19-2023 ambulatory Shagufta Garcia RN [facility] Clinical Communication Start: 09-19-2023 Patient encounter procedure Shagufta Garcia RN [facility] Start: 08-10-2023 End: 08-10-2023 ambulatory EVELYN HAM Facility:[facility] Start: 08-10-2023 End: 08-10-2023 Patient encounter procedure Walk In Clinic [facility] Walk In Clinic Procedures Date Procedure Procedure Detail Performing Clinician Start: 05-12-2022 STREP A MOLECULAR (POC) Virginia Gonzalez APRN.CNP Work Phone: Plan of Treatment Date Care Activity Detail Author Start: 2052 Zoster Vaccines (1 of 2) Zoster Vaccines (1 of 2) [facility] Start: 07-03-2025 DTaP/Tdap/Td Vaccines (7 - Td or Tdap) DTaP/Tdap/Td Vaccines (7 - Td or Tdap) [facility] Start: 07-23-2024 End: 07-23-2024 Patient encounter procedure 07/23/2024 8:15 AM EDT Office Visit [facility] [address] [place] [address] Evelyn Ham MD [address] [place], [place] [address] [address] [facility] Start: 01-17-2024 Depresssion Monitoring Depresssion Monitoring [facility] Start: 07-28-2023 Influenza vaccination Influenza Vaccine (#1) [facility] Start: 07-18-2023 End: 07-18-2024 Comprehensive metabolic 1998 panel - Serum or Plasma Comprehensive metabolic panel Lab Routine Screening for diabetes mellitus Expected: 07/18/2023 (Approximate), Expires: 07/18/2024 [facility] Immunizations Immunization Date Immunization Notes Care Provider Fa cility 09-13-2022 influenza, injectabl e, quadrivalent, preservative free Evelyn Ham MD Work Phone: [facility] 09-13-2022 Pneumococcal Conjuga te PCV20, Pf (Prevnar 20) Evelyn Ham MD Work Phone: [facility] 09-13-2022 influenza virus vacc ine, unspecified formulation Evelyn Ham MD Work Phone: [facility] 03-29-2022 Human Papillomavirus 9-valent vaccine Evelyn Ham MD Work Phone: [facility] 03-29-2022 HPV, unspecified formulation Evelyn Ham MD Work Phone: [facility] 07-03-2015 tetanus toxoid, redu lion diphtheria toxoid, and acellular pertussis vaccine, adsorbed Evelyn Ham MD Work Phone: [facility] 12-10-2008 diphtheria, tetanus toxoids and acellular pertussis vaccine Evelyn Ham MD Work Phone: [facility] 12-10-2008 measles, mumps, rube lla, and varicella virus vaccine Evelyn Ham MD Work Phone: [facility] 12-10-2008 poliovirus vaccine, inactivated Evelyn Ham MD Work Phone: [facility] 12-31-2003 diphtheria, tetanus toxoids and acellular pertussis vaccine Evelyn Ham MD Work Phone: [facility] 12-31-2003 haemophilus influenz ae type b vaccine, PRP-T conjugate Evelyn Ham MD Work Phone: [facility] 12-31-2003 measles, mumps, rube lla, and varicella virus vaccine Evelyn Ham MD Work Phone: [facility] 06-23-2003 diphtheria, tetanus toxoids and acellular pertussis vaccine Evelyn Ham MD Work Phone: [facility] 06-23-2003 haemophilus influenz ae type b vaccine, PRP-T conjugate Evelyn Ham MD Work Phone: [facility] 06-23-2003 hepatitis B vaccine, pediatric or pediatric/adolescent dosage Evelyn Ham MD Work Phone: [facility] 06-23-2003 poliovirus vaccine, inactivated Evelyn Ham MD Work Phone: [facility] 03-19-2003 diphtheria, tetanus toxoids and acellular pertussis vaccine Evelyn Ham MD Work Phone: [facility] 03-19-2003 haemophilus influenz ae type b vaccine, PRP-T conjugate Evelyn Ham MD Work Phone: [facility] 03-19-2003 hepatitis B vaccine, pediatric or pediatric/adolescent dosage Evelyn Ham MD Work Phone: [facility] 03-19-2003 poliovirus vaccine, inactivated Evelyn Ham MD Work Phone: [facility] 2002 diphtheria, tetanus toxoids and acellular pertussis vaccine Evelyn Ham MD Work Phone: [facility] 2002 poliovirus vaccine, inactivated Evelyn Ham MD Work Phone: [facility] 2002 hepatitis B vaccine, pediatric or pediatric/adolescent dosage Evelyn Ham MD Work Phone: [facility] Payers Date Payer Category Payer Private Health Insurance [facility] CHOICE PLUS [id number] 2021-Present [phone] [address] [address] [place] [address] HMO [id number] 2016 Private Health Insurance [id number] 2016 Unknown [id number] 2002 Unknown [id number] 2002 Unknown [id number] 2002 Unknown [id number] 2002 Unknown [id number] 2002 Unknown [id number] Social History Date Type Detail Facility Start: 05-12-2022 End: 08-10-2023 Tobacco smoking status MTIS Never smoked tobacco [facility] Start: 05-12-2022 End: 08-10-2023 Tobacco use and exposure Smokeless tobacco non-user [facility] Start: 05-12-2022 End: 08-10-2023 Alcohol intake Lifetime non-drinker (finding) [facility] Start: 05-12-2022 History SDOH Alcohol Frequency 1 [facility] Start: 2002 Sex Assigned At Not on file [facility] Start: 05-02-2022 End: 07-18-2023 Exposure to SARS-CoV-2 (event) Not sure [facility] Work Phone: Start: 04-10-2023 End: 07-18-2023 Alcohol intake Ex-drinker (finding) [facility] Sex Assigned At Female [facility] Start: 07-17-2023 End: 07-18-2023 History of Social function [facility] Start: 07-17-2023 End: 07-18-2023 Alcohol Use Disorder Identification Test - Consumption [AUDIT-C] [facility] Frequency of Alcohol Consumption Not on file [facility] (I/We) worried wheth er (my/our) food would run out before (I/we) got money to buy more. Never true [facility] In the past 12 month s, was there a time when you were not able to pay the mortgage or rent on time? No [facility] Functional Status Date Assessment Result Facility 06-02-2023 Functional Status [facility] 06-02-2023 Functional Status Standard Safet y ID band on, Call device within reach, Bed in low position, Wheels locked [facility] Mental Status Date Assessment Result Facility 06-02-2023 Mental Status Orientation Oriented x 4 [facility] 06-02-2023 Mental Status [facility] Clinical Notes 05-12-2022 to 09-19-2023 Telephone [...] Protocols used: No Contact or Duplicate Contact [id number] [facility] 09-19-2023 Miscellaneous Notes S- DOMINIC Rn returning call from patient. R- CAC Rn LVM to call back if still in need of assistance. Reason for Disposition Message left on unidentified voice mail. Phone number verified. Protocols used: No Contact or Duplicate Contact Dryu-CAWOM-EZ documented in this encounter [facility] 08-10-2023 Note HNO ID: [id number] Author: Fanny Mendoza APRN.CLINICAL TRIALS SPECIALIST Service: ? Author Type: Nurse Practitioner Type: [...] HENT: Head: Normocephalic and atraumatic. Mouth/Throat: Lips: [place]. Mouth: Mucous membranes are moist. Pharynx: Uvula [...] ORAL SUSPENSION Educational material provided Fanny Mendoza APRN.[facility] 08-10-2023 History of Presen t illness Narrative [...] HENT: Head: Normocephalic and atraumatic. Mouth/Throat: Lips: [place]. Mouth: Mucous membranes are moist. Pharynx: Uvula [...] Fanny Mendoza APRN.CNP documented in this encounter [facility] 07-18-2023 History of Presen t illness [...] 07/18/2023 2:00 PM documented in this encounter [facility] 07-18-2023 Evaluation + Plan note Associated Problem(s): Mixed hyperlipidemia Stable, continue low-fat low-cholesterol diet [facility] 07-18-2023 Miscellaneous Notes Associated Problem(s): Mixed hyperlipidemia Stable, continue low-fat low-cholesterol diet documented in this encounter [facility] 06-04-2023 Note . MICRO - Microbiology PROCEDURE: [...] Locations *1: This test was performed at: [facility], [address] [place] [address], [phone]- , Pending sale to [facility] ([place]) 06-02-2023 Evaluation + Plan note Diagnostic Tests PendingUrine Culture 06/02/23 [facility] 06-02-2023 Hospital Discharg e instructions Patient Education [...] another medicine was prescribed, you can use xoef-exi-tzosqpr medicines for pain, fever, or discomfort. If [...] when crying, sunken eyes, or dry mouth [phone] [employer] [place] [address]. All rights reserved. This information is not intended as a substitute for professional medical care. Always follow your healthcare professional's instructions. Follow Up Care 06/02/2023 07:11:40 With:COLBY OCAMPO DO Address: [address] [place] [phone]- [phone] When:2-4 days With:Go to emergency room if symptoms worsen Address:Unknown When:2-4 days [facility] 06-02-2023 Note Discharge Instructions Thank you for allowing [facility] to assist you with your healthcare needs. The following is important discharge information regarding your hospital visit. Diagnosis from Today's Visit Pyelonephritis Vomiting - What to Do Next Instructions from Your Care Team No qualifying data available. Post Acute Orders No qualifying data available. You Need to Schedule the Following Appointments Follow Up with COLBY OCAMPO DO When Within 2-4 days Where: [address] [place] [phone] Follow Up with Go to emergency room [...] may report side effects to FDA at 8-715-KJW-6310. What other drugs will affect cephalexin? Tell your doctor about all your other medicines, especially: metformin; or probenecid. This list is not complete. Other drugs may affect cephalexin, including prescription and zjsd-hyd-lrgjtdc medicines, vitamins, and herbal products. Not all [...] to ensure that the information provided by [employer]') is accurate, up-to-date, and complete, but no guarantee is made to that effect. Drug information contained herein may be time sensitive. [facility] information has been compiled for use by healthcare practitioners and consumers in the [place] and therefore [employer] does not warrant that uses outside of the [place] are appropriate, unless specifically indicated otherwise. [employer] drug information does not endorse drugs, diagnose patients or recommend therapy. [employer] drug information is an informational resource designed [...] effective or appropriate for any given patient. [facility] does not assume any responsibility for any aspect of healthcare administered with the aid of information [facility] provides. The information contained herein is not intended to cover all possible uses, directions, precautions, warnings, drug interactions, allergic reactions, or adverse effects. If you have questions about the drugs you are taking, check with your doctor, nurse or pharmacist. Copyright 9243-4757 [employer] Version: 10.03. Revision Date: 11/30/2020. Education Materials [...] another medicine was prescribed, you can use wksi-agl-zycvgph medicines for pain, fever, or discomfort. If [...] when crying, sunken eyes, or dry mouth [phone] [employer]. [address] [place] [address]. All rights reserved. This information is not intended as a substitute for professional medical care. Always follow your healthcare professional's instructions. Additional Information VACCINATE! IT SAVES LIVES! Members of the community who have not yet received the COVID-19 vaccine and would like to receive it can visit one of [facility] vaccine clinics. There are many vaccine clinic locations within the [facility]. For locations and available times, please visit www.gettheshot.coronavirus.[place] .gov/. It is important to note that some COVID mobile vaccine clinics are held outdoors and may be canceled in rainy or stormy conditions. To learn more about pediatric vaccinations (ages 5-11), we invite you to visit the [facility] webpage. https://www.[email or web address].org/ pages/[email or web address]-Lngik-Vigapkdlllz-Fr qxbnkdbf-Eulyf-Btlytcxlo.html To learn more about the COVID-19 vaccine, we invite you to visit the CDC website for a list of frequently asked questions. https://www.cdc.gov/coronavirus /2019-ncov/vaccines/faq.html [facility] Patient Portal Access Instructions: Stay connected with your healthcare team and access your personal medical information anytime with the [facility] Patient Portal. If you would like a full copy of your medical records please contact the [facility] Medical Records Department Monday through Monday between 8a.m. and 4:30p.m. Please follow the directions below to access the portal: 1.Access the email account you provided upon registration to the hospital.2.Look for an invitation email from [facility].3.Open the email and access the invitation link: Accept Invitation to [facility]4.Fill in the required mccain to create your account. Sign into [email or web address].[email or web address] with your username and password that you [...] you will allow to register on the [facility] Patient Portal for access to your information. You can also access the [facility] Patient Portal on the [employer]. Simply click on Health Records under Health Data and then click on the [employer] logo. HOW TO SAFELY DISPOSE OF PRESCRIPTION [...] Call your local pharmacy or go to http://SOAK [employer]).MyLife/4F9Iy3k to find one close to you.3.Make use of household items: Use cat litter or old coffee grounds to dispose medications if other options are not available. Mix your drugs with these household products, seal them in an airtight container and throw it into the garbage. Call [facility]: [phone] to be sure your drugs can be [...] aware that I should contact my doctor. 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 We will contact patient with results tomorrow if she is see her possible due date and gestational age in H&P [facility] 04-10-2023 Miscellaneous Notes Associated Problem(s): Amenorrhea We will get quantitative hCG. We will contact patient with results tomorrow if she is see her possible due date and gestational age in H&P documented in this encounter [facility] 04-10-2023 History of Presen t illness Narrative Patient verified by last name and date of . Patient wants a dining room supervisor in the room during during the visit. no Archaeology Professor na Images from the original note were [...] 04/10/2023 2:42 PM documented in this encounter [facility] 05-13-2022 Miscellaneous Notes This NEWS ANCHOR called patient and identified with name and [...] ER. All questions answered, letter sent via [employer] for work. Virginia Gonzalez APRN.SANDEEP documented in this encounter [facility] 05-12-2022 Instructions Virginia Gonzalez APRN.CNP - 05/12/2022 10:16 AM EDT covid test ordered You will be notified in 24 -48 hours, results available on [facility] Home isolation until covid results are back [...] inability to swallow. documented in this encounter [facility] 05-12-2022 History of Presen t illness Narrative Subjective The history is provided by the patient. No finish off operator was used. HPI Pieter Mckeon is a [...] member with similar symptoms. She works at [employer] BP 124/68 Pulse 109 Temp 36.5 C (97.7 F) Resp 22 Wt 86.7 kg (191 lb 3.2 oz) LMP 04/27/2022 SpO2 98% Social History Tobacco Use Smoking status: Never Smoker Smokeless tobacco: Never Used Substance Use Topics Alcohol use: Never Drug use: Never No past medical history on file. I have confirmed and edited as necessary, the [facility] Review of Systems Constitutional: Positive for fever. [...] Virginia Gonzalez APRN.CNP documented in this encounter [facility] Diagnosis Amenorrhea- Primary Absence of menstruation [facility] Annual physical exam- Primary Routine general medical examination at a health care facility Mixed hyperlipidemia Screening for diabetes mellitus [facility] Diagnosis Thrush- Primary Candidiasis of mouth [facility] No data available for this section [facility] Hospital Discharge instructions No data available for this section [facility] Progress note No data available for this section [facility] Health Concerns Infection Onset Date Last Indicated [...] or prosecute any alcohol or drug abuse patient.[facility] the event this information is protected by the Federal Confidentiality of Alcohol and Drug Abuse Patient Records regulations: The Federal rules restrict any use of the information to criminally investigate or prosecute any alcohol or drug abuse patient.[facility] the event this information is protected by the Federal Confidentiality of Alcohol and Drug Abuse Patient Records regulations: The Federal rules restrict any use of the information to criminally investigate or prosecute any alcohol or drug abuse patient.[facility] Reason for Visit (unrecogniz ed section [...] Care Teams (unrecognized sec tion and content) Horticulture Supervisor Relationship Specialty Start Date End Date Evelyn Ham [address] [place] [address] PCP - General Family Practice 05/12/22 Horticulture Supervisor Relationship Specialty Start Date End Date Evelyn Ham MD [address] [facility] [place] [id number] PCP - General 09/12/21 Horticulture Supervisor Relationship Specialty Start Date End Date Evelyn Ham MD [address] [place] [place] [id number] PCP - General 09/12/21 Horticulture Supervisor Relationship Specialty Start Date End Date Evelyn Ham PCP - General Family Medicine 05/12/22 Horticulture Supervisor Relationship Specialty Start Date End Date Evelyn Ham MD [address] [place], [place] [address] [address] PCP - General 09/12/21 INFORMATION SOURCE (unrecogn ized section and content) DATE CREATED AUTHOR AUTHOR'S ORGANIZ ATION 08/12/2023 [facility] DATE CREATED AUTHOR AUTHOR'S ORGANIZ ATION 09/21/2023 [facility] FOR RECORDS PERTAINING TO PATIENTS WHO [...] BE BASED ON THE PRIMARY CLINICAL RECORDS. [facility] [employer] [facility]. provides no warranty or guarantee of the accuracy or completeness of information in this document.
[2024-01-06 15:45] LABS: HPV Reflexed? NOT INDICATED
== END | disposition home or self-care (01) ==
PROVIDERS: PCP Family Medicine; Referring Provider Nurse Practitioner Women's Health; Visit Provider Nurse Practitioner Women's Health
DX: Z12.4 Encounter for screening for malignant neoplasm of cervix (principal); D64.9 Anemia, unspecified; Z87.59 Personal history of other complications of pregnancy, childbirth and the puerperium
CPT/HCPCS: 36415; 85025; 88175; G0145

== ENCOUNTER 2025-06-27 10:02 | Emergency (ER) | payer BC, SELFPAY ==
[2025-06-27 10:02] VITALS: BP 132/79; PULSE 99; RESP 18; TEMP 37.1; O2SAT 100; BMI 37.7
[2025-06-27 10:39] LABS: Mucous, Urine 0 SEEN /hpf (<or=2+); Red Blood Cells-Urine 0 SEEN /hpf (0-5)
[2025-06-27 11:04] LABS: Color, Urine Yellow (Yellow); Glucose, Dipstick Normal (Normal); Ketone-Dipstick Negative (Negative); Leukocyte Esterase-Dipstick Negative /ul (Negative); Nitrite-Dipstick Negative (Negative); Occult Blood-Urine Negative /ul (Negative); Protein-Dipstick 15 mg/dl (Negative); Specific Gravity, Urine 1.010 (1.002-1.030); Urine Bilirubin Dipstick Negative (Negative)
[2025-06-27] MEDS: 0.9% Normal Saline (1000mL) 1,000 ML 999 ML IV (11:12)
[2025-06-27 11:16] LABS: Internal QC Validated? YES +Cl - CLEAR BKGD; Pregnancy, Urine Negative Negative; Record Kit Lot#,Urine Preg 0000962302
[2025-06-27 11:22] LABS: Squamous Epithelial Cells - UA 0-5 SEEN /hpf (5-10)
--- NOTE | 2025-06-27 11:55 | EX.ED.DYSGE1 ---
HPI History of Present Illness Chief Complaint: Headache Narrative Narrative: Patient is a 24-year-old female with past medical history of headache, fatigue, anemia, autism spectrum who presented to the emergency department with a chief complaint of headache. 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 She states that she sat down for 30 minutes and still was not feeling better therefore they sent her here to be further evaluated. Patient denies any sick contacts denies any head trauma. Patient states that her headache just gradually worsened. [facility] Medical History Contraceptive management Difficulty balancing when standing Chest pain Severe headache Fatigue Home Medications ?Medication ?Instructions ?Recorded ?Last Taken ?Type vitamins with calcium 1 tab PO DAILY take in morning #90 10/02/23 11/16/23 09:00 Rx no.72-iron 29 mg-folic acid 1 mg tabs 1 TAB tablet docusate sodium 100 mg capsule 100 mg PO DAILY #60 caps 11/23/23 Unknown Rx (Colace) ondansetron 4 mg disintegrating 4 mg PO Q6H PRN nausea and 06/27/25 Unknown Rx tablet vomiting #20 tabs Allergy/AdvReac Type Severity Reaction Status Date / Time Latex, Natural Rubber Allergy Mild Hives Verified 06/27/25 10:02 Penicillins Allergy Hives Verified 06/27/25 10:02 Family History Grandmother Breast cancer Colon cancer Thyroid disorder Unknown Infertility Social History household members: spouse housing: house number of children: 0 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 history of recent travel: No sexually active: Yes Smoking Status: Never smoker alcohol intake: never substance use type: does not use what type of physical activity do you participate in: walking seatbelt use: always do you feel safe at home: Yes additional social history: - Сергей [facility] ROS ED ROS Narrative Constitutional: Complains of headache as noted above denies any lightness, dizziness, fevers, chills Eyes: Denies change in vision double vision blurry vision Cardiovascular: Denies chest pain or palpitations Respiratory: Denies shortness of breath Abdomen: Denies nausea vomit diarrhea : Complains of painful urination and increased frequency denies blood in her urine Neurological: Denies any numbness, weeks, tingling Musculoskeletal: Denies back pain Skin: Denies any rashes or lesions EXAM Physical Exam Narrative Exam Narrative: General: Patient was lying in bed rest comfortably did not appear to be acute distress Head: Atraumatic, normocephalic Eyes: PERRL bilaterally, EOMI biotic no conjunctival injection noted Neck: Soft, supple, trachea midline Cardiovascular: Regular rate and rhythm no murmurs gallops rubs noted Respiratory: Clear to auscultation bilaterally Abdomen: Soft, nondistended, no tenderness palpation Musculoskeletal: No CVA tenderness on exam no tenderness palpation midline of the thoracolumbar spine Extremities: +5/5 strength noted in the bilateral upper and lower extremities Neurological: Patient following commands knew that she was at [facility] year is 2024. NIH of 0 GCS 15 Skin: Warm, dry, intact no rashes or lesions noted Const Vital Signs: 06/27/25 10:02 06/27/25 12:02 Temperature 98.8 F Temperature Source Oral Pulse Rate 99 91 Respiratory Rate 18 15 Blood Pressure 132/79 H 130/74 H Blood Pressure Mean 96 92 Pulse Ox 100 99 Oxygen Delivery Method Room Air MDM MDM MDM Narrative Medical decision making narrative: Patient is a 24-year-old female who presents to the emergency department the chief complaint of headache. On the differential diagnose includes but not limited to migraine headache, cluster headache, electrolyte abnormality, dehydration, . Once workup is obtained reviewed she will be reevaluated. Patient be given IV fluids Reglan and Tylenol. Patient's urinalysis reviewed showed no evidence of infection is negative. On reevaluation patient she is feeling significantly improved and would like to go home at this point time. Patient was advised to rotate Tylenol and ibuprofen [id number] for pain control. She was advised to hydrate with plenty of fluids. She was vies return with worsening symptoms or any concerns. She is agreeable this plan as well as family member at bedside all question concerns answered she was discharged home in stable condition. Lab Data Labs: Laboratory Results - last 24 hr 06/27/25 10:33 Urine Color Yellow Urine Clarity Sl. Cloudy Urine pH 7.0 Ur Specific [place] 1.010 Urine Protein 15 H Urine Glucose (UA) Normal Urine Ketones Negative Urine Occult Blood Negative Urine Nitrite Negative Urine Bilirubin Negative Urine Urobilinogen Normal Ur Leukocyte Esterase Negative Urine RBC 0 SEEN Urine WBC 0 SEEN Ur Squamous Epith Cells 0-5 SEEN Urine Bacteria 0 SEEN Urine Mucus 0 SEEN Urine Test Negative Discharge Plan Triage Chief Complaint: Headache ED Provider: Jose Knight Dx/Rx/DC Orders Clinical Impression: Headache, History of anemia Prescriptions: New ondansetron 4 mg tablet,disintegrating 4 mg PO Q6H PRN (Reason: nausea and vomiting) Qty: 20 0RF No Action PNV,calcium 72-iron,carb-folic 29 mg iron- 1 mg tablet 1 tab PO DAILY Qty: 90 3RF docusate sodium [Colace] 100 mg capsule 100 mg PO DAILY Qty: 60 1RF Primary Care Provider: Boogie Ham Referrals: Boogie Ham MD [Primary Care Provider] - Activity Restrictions/Additional Instructions: Follow-up with your doctor in the outpatient setting. Rotate Tylenol and ibuprofen [id number] when you do this you can take something every 3 hours. Max dose of Tylenol in 24 hours 4000 mg max dose of ibuprofen in 24 hours 3200 mg. Use Zofran no sent to your pharmacy as prescribed as well. Your urine did not show any evidence of infection. Ensure that you are hydrating orally with lots of water. Print Language: Greek Disposition Disposition: Home, Self Care
[2025-06-27 12:02] VITALS: BP 130/74; PULSE 91; RESP 15; O2SAT 99
[2025-06-27 13:07] VITALS: BP 130/74; PULSE 91; RESP 15; TEMP 37; O2SAT 99
== END 2025-06-27 13:13 | disposition home or self-care (01) ==
PROVIDERS: Emergency Provider Emergency Medicine; PCP Family Medicine; Visit Provider Emergency Medicine
DX: R51.9 Headache, unspecified (principal); Z86.2 Personal history of diseases of the blood and blood-forming organs and certain disorders involving the immune mechanism
CPT/HCPCS: 81001; 81025; 96361; 96374; 99284; A4216